=== PATIENT | female | born 1975 | race Two or more races ===

== ENCOUNTER 2020-07-04 08:57 | Outpatient (REF) | payer OTHER, SELFPAY ==
[2020-07-04 14:12] LABS: CT PCR NOT DETECTED (Not Detect.); NG PCR NOT DETECTED (Not Detect.)
[2020-07-05 09:33] LABS: BV Int Neg Control Negative (Negative); BV Int Pos Control Positive (Positive)
[2020-07-09 20:11] LABS: HPV mRNA E6/E7 Detected (Not Detected)
[2020-07-16 12:37] LABS: HPV 16 RNA NOT DETECTED
== END 2020-07-04 08:58 | disposition home or self-care (01) ==
LOC: HO.LAB 08:57
PROVIDERS: PCP Nurse Practitioner Family; Visit Provider Advanced Practice Midwife
DX: Z12.4 Encounter for screening for malignant neoplasm of cervix (principal); Z11.51 Encounter for screening for human papillomavirus (HPV); Z11.3 Encounter for screening for infections with a predominantly sexual mode of transmission; N93.9 Abnormal uterine and vaginal bleeding, unspecified; Z20.2 Contact with and (suspected) exposure to infections with a predominantly sexual mode of transmission; L68.0 Hirsutism; R23.2 Flushing
CPT/HCPCS: 87480; 87491; 87510; 87591; 87624; 87625; 87660; 88141; 88142; 88305

== ENCOUNTER 2020-07-18 12:50 | Outpatient (REF) | payer OTHER, SELFPAY ==
--- NOTE | 2020-07-18 12:54 | US_ITS ---
EXAMINATION: ULTRASOUND PELVIS COMPLETE CLINICAL INFORMATION: Abnormal uterine and vaginal bleeding. COMPARISON: 10/13/[address] abdomen and pelvis 01/07/2017. TECHNIQUE: Transabdominal and transvaginal imaging of pelvis is performed. FINDINGS: The uterus is anteverted, anteflexed and measures 14.2 cm in length, 6.0 cm in AP and 7.3 cm in transverse dimension. There are 3 hypoechoic lesions. 1. A right fundal lesion measures 2.3 x 1.9 x 2.2 cm. 2. A left upper body lesion measures 2.0 x 1.3 x 2.0 cm. Previously it measured 1.1 x 0.5 x 0.7 cm. 3. Left fundal lesion measures 1.8 x 1.6 x 1.7 cm. The endometrial thickness is 1.4 cm. There is a small hyperechoic lesion in the endometrial canal measuring 1.5 x 1.8 x 1.6 cm, suspicious of polyp or mass. There is a likely small vascular feeder visualized. Several nabothian cysts seen in the cervix. The right ovary measures 2.5 x 3.6 x 2.3 cm and volume 10.8 mL. Previously it measured 3.5 x 2.0 x 2.5 cm and volume 8.5 mL. It appears unremarkable. Left ovary seen transabdominally and measures 2.6 x 2.1 x 2.4 cm and volume 6.9 mL. There is a small amount of free fluid in the cul-de-sac. US/US pelvic complete IMPRESSION: At least 3 uterine fibroids, two of the fibroids appear new compared to previous ultrasound exam 10/13/2013. Endometrial polyp or mass with a possible vascular feeder. Recommend endoscopy. Nabothian cysts in the cervix. There is a small amount of free fluid in the cul-de-sac.
[2020-07-18 15:00] LABS: Hematocrit 35.4 % (37-47); Hemoglobin 11.1 g/dl (12.0-16.0); Mean Corpuscular HGB Conc 31.4 g/dl (31.0-35.0); Mean Corpuscular Hemoglobin 24.8 pg (27.0-33.0); Mean Platelet Volume 9.9 fL (9.4-12.3); Platelet Count 352 X10*3/uL (160-400); Red Blood Count 4.48 X10*6/uL (4.20-5.50); Red Cell Distribution Width 16.1 % (11.0-16.0); White Blood Count 4.7 X10*3/uL (4.8-10.8)
[2020-07-19 22:27] LABS: DHEA Sulfate 66 mcg/dL (19-231)
[2020-07-20 08:06] LABS: Follicle Stimulating Hormone 5.6 mIU/mL; Prolactin 10.7 ng/mL
[2020-07-25 14:21] LABS: Testosterone, Free 1.6 pg/mL (0.1-6.4); Testosterone, Total 11 ng/dL (2-45)
== END 2020-07-18 12:51 | disposition home or self-care (01) ==
LOC: HO.US 12:50
PROVIDERS: PCP Nurse Practitioner Family; Visit Provider Advanced Practice Midwife
DX: N93.9 Abnormal uterine and vaginal bleeding, unspecified (principal); Z20.2 Contact with and (suspected) exposure to infections with a predominantly sexual mode of transmission
CPT/HCPCS: 36415; 76830; 76856; 82627; 83001; 83498; 84146; 84402; 84403; 84443; 85027

== ENCOUNTER 2020-08-19 06:51 | Outpatient (REF) | payer OTHER, SELFPAY | END 2020-08-19 06:52 | disposition home or self-care (01) | LOC: HO.LAB 06:51 | PROVIDERS: Visit Provider Internal Medicine | DX: Z20.828 Contact with and (suspected) exposure to other viral communicable diseases (principal) | CPT/HCPCS: C9803; U0003 ==

== ENCOUNTER 2021-07-14 15:22 | Outpatient (REF) | payer OTHER, SELFPAY ==
--- NOTE | ~2021-07-14 | MM_ITS ---
EXAMINATION: MM SCREENING DIGITAL BREAST TOMOSYNTHESIS, BILATERAL CLINICAL INFORMATION: Screening. Asymptomatic. Age 46. No prior breast imaging. No known family history breast cancer. The lifetime risk of breast cancer based on the Tyrer-Cuzick Model is 6%. COMPARISON: None (current study represents initial baseline exam). TECHNIQUE: Digital breast tomosynthesis is performed in both the craniocaudal and mediolateral oblique views along with computer-aided detection (CAD). Synthesized 2D images are generated from the tomosynthesis. FINDINGS: There are scattered areas of fibroglandular density (ACR BI-RADS breast composition Category b). There are no significant masses, abnormal calcifications, or other abnormalities. The axilla and skin contours are unremarkable. MM/MM tomosynthesis screening BI IMPRESSION: No mammographic evidence of malignancy. ASSESSMENT: BI-RADS 1: Negative RECOMMENDATION: Routine annual mammography screening. This patient's information was entered into a reminder system with a target due date for their next mammogram.
== END 2021-07-14 15:23 | disposition home or self-care (01) ==
LOC: HO.MAMMO 15:22
PROVIDERS: Visit Provider Obstetrics & Gynecology
DX: Z12.31 Encounter for screening mammogram for malignant neoplasm of breast (principal)
CPT/HCPCS: 77063; 77067

== ENCOUNTER 2021-08-05 13:47 | Outpatient (REF) | payer OTHER, SELFPAY ==
[2021-08-06 09:41] LABS: CT PCR NOT DETECTED (Not Detect.); NG PCR NOT DETECTED (Not Detect.)
[2021-08-08 02:36] LABS: HPV mRNA E6/E7 rflx Not Detected (Not Detected)
== END 2021-08-05 13:48 | disposition home or self-care (01) ==
LOC: HO.LAB 13:47
PROVIDERS: PCP Internal Medicine; Visit Provider Obstetrics & Gynecology
DX: Z01.411 Encounter for gynecological examination (general) (routine) with abnormal findings (principal); Z11.51 Encounter for screening for human papillomavirus (HPV); Z11.3 Encounter for screening for infections with a predominantly sexual mode of transmission; N93.9 Abnormal uterine and vaginal bleeding, unspecified; N84.0 Polyp of corpus uteri
CPT/HCPCS: 87491; 87591; 87624; 88142; 99212

== ENCOUNTER 2021-08-06 09:02 | Outpatient (REF) | payer OTHER, SELFPAY ==
[2021-08-06 09:46] LABS: Hematocrit 34.4 % (37.0-47.0); Hemoglobin 10.5 g/dl (12.0-16.0); Mean Corpuscular HGB Conc 30.5 g/dl (31.0-35.0); Mean Corpuscular Hemoglobin 22.9 pg (27.0-33.0); Mean Corpuscular Volume 74.9 fL (80.0-98.0); Mean Platelet Volume 9.8 fL (9.4-12.3); Platelet Count 344 X10*3/uL (160-400); Red Blood Count 4.59 X10*6/uL (4.20-5.50); Red Cell Distribution Width 16.8 % (11.0-16.0)
[2021-08-06 10:39] LABS: HCG Quantitative < 2 mIU/mL; TSH reflex Free T4 1.43 uIU/mL (0.32-4.0)
== END 2021-08-06 09:03 | disposition home or self-care (01) ==
LOC: HO.LAB 09:02
PROVIDERS: Visit Provider Obstetrics & Gynecology
DX: N93.9 Abnormal uterine and vaginal bleeding, unspecified (principal)
CPT/HCPCS: 36415; 84443; 84702; 85027

== ENCOUNTER 2021-08-07 12:54 | Outpatient (REF) | payer OTHER, SELFPAY ==
--- NOTE | ~2021-08-07 | US_ITS ---
EXAMINATION: US PELVIS CLINICAL INFORMATION: Abnormal uterine and vaginal bleeding COMPARISON: Previous pelvic ultrasound June 2020 TECHNIQUE: Ultrasound of the pelvis is performed using both transabdominal and transvaginal transducers along with Doppler. Transvaginal imaging is performed due to inadequate visualization transabdominally. FINDINGS: The uterus is anteverted and measures 13 x 5.3 x 7 cm in dimension. There are 4 focal uterine lesions seen probably representing fibroids. These measure 3.3 x 2 x 2.2 cm in posterior uterine body, 2.5 x 1.6 x 1.9 cm the left uterine body, 1.8 x 1.2 x 1.7 cm in the posterior uterine body and 2.5 x 1.6 x 1.9 cm in the fundus. Endometrial thickness is upper normal measuring 1.8 cm. There are nabothian cysts in the cervix. The ovaries are normal-appearing. The right ovary measures 3.3 x 2.7 x 3 cm and the left ovary measures 2.5 x 2.1 x 1.8 cm. There is no fluid in the pelvis. US/US pelvic and transvaginal IMPRESSION: Enlarged fibroid uterus. Upper normal thickness endometrium. Normal-appearing ovaries.
== END 2021-08-07 12:55 | disposition home or self-care (01) ==
LOC: HO.US 12:54
PROVIDERS: Visit Provider Obstetrics & Gynecology
DX: N93.9 Abnormal uterine and vaginal bleeding, unspecified (principal)
CPT/HCPCS: 76830; 76856

== ENCOUNTER 2021-09-02 12:15 | Outpatient (REF) | payer OTHER, SELFPAY | END 2021-09-02 12:16 | disposition home or self-care (01) | LOC: HO.LAB 12:15 | PROVIDERS: PCP Internal Medicine; Visit Provider Obstetrics & Gynecology | DX: N93.9 Abnormal uterine and vaginal bleeding, unspecified (principal); N92.6 Irregular menstruation, unspecified | CPT/HCPCS: 58100; 88305 ==

== ENCOUNTER → 2021-09-23 13:09 | Outpatient (BNVA) | payer OTHER, SELFPAY | PROVIDERS: PCP Internal Medicine; Visit Provider Obstetrics & Gynecology | DX: N93.9 Abnormal uterine and vaginal bleeding, unspecified (principal) | CPT/HCPCS: 99212 ==

== ENCOUNTER → 2021-10-27 09:41 | Outpatient (BNVA) | payer OTHER, SELFPAY | PROVIDERS: PCP Internal Medicine; Visit Provider Obstetrics & Gynecology | DX: Z30.430 Encounter for insertion of intrauterine contraceptive device (principal) | CPT/HCPCS: 58300 ==

== ENCOUNTER 2021-11-04 08:51 | Outpatient (REF) | payer OTHER, SELFPAY ==
[2021-11-04 11:21] LABS: Alanine Aminotransferase 23 U/L (0-31); Alkaline Phosphatase 80 U/L (39-117); Anion Gap 9 (12-20); Aspartate Amino Transferase 19 U/L (5-31); Bilirubin Total 0.3 mg/dL (0.0-1.0); Blood Urea Nitrogen 7 mg/dL (9-16); Calcium 9.5 mg/dL (8.4-10.2); Carbon Dioxide 27 mmol/L (22-29); Chloride 105 mmol/L (96-108); Estimated Glomerular Filt Rate > 60; Glucose Random 87 mg/dL (60-115); Potassium 4.3 mmol/L (3.3-5.1); Sodium 137 mmol/L (135-145); Total Protein 6.8 g/dL (6.5-8.0)
== END 2021-11-04 08:52 | disposition home or self-care (01) ==
LOC: HO.LAB 08:51
PROVIDERS: PCP Internal Medicine; Referring Provider Obstetrics & Gynecology; Visit Provider Nurse Practitioner
DX: K63.89 Other specified diseases of intestine (principal); Z12.11 Encounter for screening for malignant neoplasm of colon
CPT/HCPCS: 36415; 80053; 99202

== ENCOUNTER 2021-11-24 09:50 | Outpatient (REF) | payer OTHER, SELFPAY | END 2021-11-24 09:51 | disposition home or self-care (01) | LOC: HO.LAB 09:50 | PROVIDERS: Visit Provider Obstetrics & Gynecology | DX: L91.8 Other hypertrophic disorders of the skin (principal); Z30.431 Encounter for routine checking of intrauterine contraceptive device | CPT/HCPCS: 11200; 11400; 88304; 88305 ==

== ENCOUNTER → 2021-12-08 12:03 | Outpatient (BNVA) | payer OTHER, SELFPAY | PROVIDERS: Visit Provider Obstetrics & Gynecology | DX: Z48.817 Encounter for surgical aftercare following surgery on the skin and subcutaneous tissue (principal); Z87.2 Personal history of diseases of the skin and subcutaneous tissue | CPT/HCPCS: Q3014 ==

== ENCOUNTER → 2021-12-29 15:41 | Outpatient (BNVA) | payer OTHER, SELFPAY | PROVIDERS: Referring Provider Internal Medicine; Visit Provider Nurse Practitioner | DX: K63.89 Other specified diseases of intestine (principal) | CPT/HCPCS: 99202 ==

== ENCOUNTER 2022-02-03 10:01 | Day surgery (SDC) | payer OTHER, SELFPAY ==
[2022-01-28 15:31] VITALS: BMI 36.7
--- NOTE | 2022-02-02 10:25 | HO.ANESPROP2 ---
Documented by User: Jeri Henley NP 02/02/22 10:26 HPI - Anesthesia Eval Consult details Narrative: 46yo F for Colonoscopy PMFSH Active Problems Active Problems: All Active Problems (Updated 01/28/22 @ 15:27 by Montse Tee, RUDY) Irregular bleeding (Acute) Abnormal uterine bleeding (AUB) (Acute) Potential exposure to STD (Acute) Hirsutism (Acute) Hot flashes (Acute) Myoma (Acute) Polyp of corpus uteri (Acute) HPV test positive (Acute) Screening mammogram, encounter for (Acute) Well woman exam (Acute) Encounter for IUD insertion (Acute) Asthma (Acute) Anxiety (Acute) Allergic rhinitis (Acute) Small intestinal bacterial overgrowth (Acute) Colon cancer screening (Acute) IUD check up (Acute) Skin lesions (Acute) Colon cancer screening (Acute) Past Medical History Medical History (Updated 01/28/22 @ 15:27 by Montse Tee RN) Allergic rhinitis Anxiety Asthma COVID-19 Hx of endometriosis Hx of seasonal allergies Surgical History Surgical History (Updated 01/28/22 @ 15:24 by Montse Tee RN) Hx of cholecystectomy Hx of tubal ligation Social History Social History Alcohol intake: never Patient Tobacco Use Status: Never used Tobacco Use of substances other than those prescribed or required for medical reasons: No Are you DNR?: No Advance Directives: No Advance Directives Information Provided: Yes Gender identity: Female Meds Allergies Allergy/AdvReac Type Severity Reaction Status Date / Time No Known Allergies Allergy Mild NOT Verified 01/28/22 15:24 APPLICABLE Home Medications Medication Instructions Recorded Confirmed Last Taken Type albuterol sulfate mg INHALATION Q4H PRN 07/04/20 08/01/20 Unknown History albuterol sulfate 90 mcg/actuation 2 puff PO Q4H PRN 07/04/20 01/28/22 Unknown History aerosol inhaler fluticasone propionate 50 INTRANASAL 07/04/20 08/01/20 Unknown History mcg/actuation nasal spray,suspension montelukast 10 mg tablet 10 mg PO DAILY 07/04/20 01/28/22 Unknown History Exam Exam Date and Time: February 02, 2022 1025 Height,Weight and Vital Signs: Height 5 ft 2 in Weight 91.172 kg Pertinent Lab Results Pertinent Lab Results: Laboratory Tests 08/06/21 11/04/21 09:25 10:05 WBC 5.0 Hgb 10.5 L Hct 34.4 L Plt Count 344 Sodium 137 Potassium 4.3 Chloride 105 Carbon Dioxide 27 BUN 7 L Creatinine 0.90 Assessment and Plan Assessment Anesthesia Assessment: Chart Reviewed Documented by User: Irvin Chapa MD 02/03/22 12:11 PMFSH Past Medical History Medical History (Updated 01/28/22 @ 15:27 by Montse Tee RN) Allergic rhinitis Anxiety Asthma COVID-19 Hx of endometriosis Hx of seasonal allergies Family History Family history of problems with anesthesia: No Surgical History Surgical History (Updated 01/28/22 @ 15:24 by Montse Tee RN) Hx of cholecystectomy Hx of tubal ligation History of Problems with Anesthesia: No Social History Social History Alcohol intake: never Patient Tobacco Use Status: Never used Tobacco Use of substances other than those prescribed or required for medical reasons: No Are you DNR?: No Advance Directives: No Advance Directives Information Provided: Yes Gender identity: Female Meds Allergies Allergy/AdvReac Type Severity Reaction Status Date / Time No Known Allergies Allergy Mild NOT Verified 01/28/22 15:24 APPLICABLE Home Medications Medication Instructions Recorded Confirmed Last Taken Type albuterol sulfate mg INHALATION Q4H PRN 07/04/20 08/01/20 Unknown History albuterol sulfate 90 mcg/actuation 2 puff PO Q4H PRN 07/04/20 01/28/22 Unknown History aerosol inhaler fluticasone propionate 50 INTRANASAL 07/04/20 08/01/20 Unknown History mcg/actuation nasal spray,suspension montelukast 10 mg tablet 10 mg PO DAILY 07/04/20 01/28/22 Unknown History Exam Airway Mallampati Class: II TM Dist: >3cm Neck ROM: Full Assessment and Plan Final Anesthetic Review Family History of Problems with Anesthesia: No History of Problems with Anesthesia: No NPO: Yes ASA Class: III Final Preanesthetic Review: No Changes in Pt Med Stat, Meds/Allgs Chart Reviewed, Consent Obtained/Reviewed and Anes Risks/Benef Reviewed Patient Risk: Intermediate Procedure Risk: Low Anesthetic Plan Anesthetic Plan: MAC: Disposition: Standard PACU
[2022-02-03 10:22] VITALS: BP 160/80; PULSE 98; RESP 16; TEMP 36.4; O2SAT 99
[2022-02-03] MEDS: Lactated Ringers 1,000 ML 100 ML IVCONT (10:39)
[2022-02-03] MEDS: Albuterol Sulfate (0.083%) 2.5 MG/3 ML VIAL.NEB INHALE (10:49)
[2022-02-03 10:51] VITALS: PULSE 93; RESP 18; O2SAT 98
--- NOTE | 2022-02-03 11:18 | MHC.SHP ---
Pre-Procedural Eval Section A Date of Service: 02/03/22 Section B Chief Complaint: screening Relevant Family History (Specify if Yes): No Relevant Social History: None Present Medications: see Short Stay Collaborative assessment Medical History: Significant History (Allergic rhinitis Anxiety Asthma COVID-19 Hx of endometriosis Hx of seasonal allergies) History of Previous Operations: Relevant previous surgery/procedure and date(s) (Hx of cholecystectomy Hx of tubal ligation) Allergies: Allergies Allergy/AdvReac Type Severity Reaction Status Date / Time No Known Allergies Allergy Mild NOT Verified 01/28/22 15:24 APPLICABLE Review of Systems Sugical H&P ROS: Negative: Constitution, Cardiovascular, Respiratory, Neurological, Psychiatric, Hem-Onc, Allergic/Immunologic, Gastrointestinal, Genitourinary, Musculoskeletal, Integumentary, Endocrine and Eyes/Ears/Nose/Throat Exam Surgical H&P Exam: Normal: HEENT, Normal: Heart, Normal: Lungs, Normal: Extremities, Normal: Abdomen, Normal: Skin and Normal: Neurological Plan Diagnosis/Plan: Unchanged I have reviewed the history and physical and performed a pertinent physical examination on my patient. No changes have occurred unless specified.
--- NOTE | 2022-02-03 11:19 | PM.OP ---
Brief Operative Note Date of Service: 02/03/22 Pre-op diagnosis: colon screening Post-op diagnosis: same Procedure: see op note Surgeon: Manoj Boyd MD Anesthesia: MAC Was an Lawn Sprinkler Installer used for this Procedure?: No Estimated blood loss (mL): 0 Condition: stable Disposition: PACU
--- NOTE | 2022-02-03 11:20 | P.OP_ITS ---
Operative Note Operative Note Date of Service: 02/03/22 Narrative: Operative Information Procedure Description: Colonoscopy Indication: colon screening Anesthesia: MAC COLONOSCOPY Instrument: Olympus variable stiffness adult scope 190L Colonoscopy Monitoring: Vital signs and clinical assessment, continuous EKG monitoring, Pulse oximetry, Carbon Dioxide monitoring and blood pressure monitoring were done throughout the procedure. Colon withdrawal time was 6 minutes. Procedure: The patient was placed in the left lateral decubitis position and pre-procedure medications were administered. After a digital rectal examination of the ano-rectum, the video colonoscope was inserted into the rectum and advanced through the colon to the cecum/TI. The colonoscope was slowly withdrawn in a retrograde panoramic fashion and the colon mucosa was carefully examined including a retroflexed view of the rectum. Findings and interventions are described below. Procedure Difficulty: easy Findings: Terminal Ileum-normal Cecum:normal Ascending Colon: normal Transverse Colon -normal Descending Colon:normal Sigmoid Colon: normal Rectum: Retroflexion with small internal hemorrhoids, grade I Anorectum - normal Colon preparation: [place] Bowel Preparation Scale Right colon; 1 Transverse colon: 2 Left colon; 1 (0 = Unprepared colon segment with mucosa not seen due to solid stool that cannot be cleared. 1 = Portion of mucosa of the colon segment seen, but other areas of the colon segment not well seen due to staining, residual stool and/or opaque liquid. 2 = Minor amount of residual staining, small fragments of stool and/or opaque liquid, but mucosa of colon segment seen well. 3 = Entire mucosa of colon segment seen well with no residual staining, small fragments of stool or opaque liquid) Impression and Post Procedure Diagnosis: poor prep internal hemorrhoids Plan: High fiber diet leaflet Avoid straining at stool, epsom salts and sitz bath, anusol supps or cream Repeat Colonoscopy in 1 year due to poor prep or earlier if clinically indicated-next time follow instructions for diet Above findings were reviewed with the patient and relevant handouts were provided if indicated.
[2022-02-03 11:46] VITALS: BP 132/63; PULSE 99; RESP 16; TEMP 37.2; O2SAT 100
[2022-02-03 12:01] VITALS: BP 137/84; PULSE 93; RESP 18; TEMP 36.8; O2SAT 96
== END 2022-02-03 12:50 | disposition home or self-care (01) ==
PROVIDERS: Visit Provider Internal Medicine Gastroenterology
PROC: 0DJD8ZZ Inspection of Lower Intestinal Tract, Via Natural or Artificial Opening Endoscopic (ICD-10-PCS; CPT 45378; principal; 2022-02-03 11:10)
DX: Z12.11 Encounter for screening for malignant neoplasm of colon (principal); K64.0 First degree hemorrhoids; K63.89 Other specified diseases of intestine; J45.909 Unspecified asthma, uncomplicated; Z90.49 Acquired absence of other specified parts of digestive tract; Z86.16 Personal history of COVID-19
CPT/HCPCS: 45378; 94640

== ENCOUNTER 2022-02-23 15:24 | Outpatient (REF) | payer OTHER, SELFPAY ==
[2022-02-24 06:29] LABS: CT PCR NOT DETECTED (Not Detect.); NG PCR NOT DETECTED (Not Detect.)
== END 2022-02-23 15:25 | disposition home or self-care (01) ==
LOC: HO.LAB 15:24
PROVIDERS: PCP Nurse Practitioner Primary Care; Visit Provider Obstetrics & Gynecology
DX: Z11.3 Encounter for screening for infections with a predominantly sexual mode of transmission (principal); N93.9 Abnormal uterine and vaginal bleeding, unspecified
CPT/HCPCS: 81025; 87491; 87591; 99212

== ENCOUNTER 2022-02-24 09:00 | Outpatient (REF) | payer OTHER, SELFPAY ==
[2022-02-24 09:56] LABS: Hematocrit 37.3 % (37.0-47.0); Hemoglobin 11.6 g/dl (12.0-16.0); Mean Corpuscular HGB Conc 31.1 g/dl (31.0-35.0); Mean Corpuscular Hemoglobin 23.9 pg (27.0-33.0); Mean Corpuscular Volume 76.9 fL (80.0-98.0); Mean Platelet Volume 9.9 fL (9.4-12.3); Platelet Count 345 X10*3/uL (160-400); Red Blood Count 4.85 X10*6/uL (4.20-5.50); Red Cell Distribution Width 19.2 % (11.0-16.0); White Blood Count 8.3 X10*3/uL (4.8-10.8)
== END 2022-02-24 09:01 | disposition home or self-care (01) ==
LOC: HO.LAB 09:00
PROVIDERS: Visit Provider Obstetrics & Gynecology
DX: N93.9 Abnormal uterine and vaginal bleeding, unspecified (principal)
CPT/HCPCS: 36415; 85027

== ENCOUNTER 2022-04-01 11:19 | Outpatient (REF) | payer OTHER, SELFPAY ==
--- NOTE | ~2022-04-01 | US_ITS ---
EXAMINATION: US PELVIS CLINICAL INFORMATION: Abnormal uterine and vaginal bleeding COMPARISON: Previous pelvic ultrasound July 2021 TECHNIQUE: Ultrasound of the pelvis is performed using both transabdominal and transvaginal transducers along with Doppler. Transvaginal imaging is performed due to inadequate visualization transabdominally. FINDINGS: The uterus is anteverted and measures 9.8 x 6.6 x 6.2 cm in dimension. There are 4 focal uterine lesions in the posterior uterine body and fundus suggestive of fibroids. These do not appear appreciably changed from previous exam. These measure 2.6 x 2.2 x 3 cm, 2 cm, 1.7 x 1.3 x 2.3 cm and 2.4 x 1.8 cm. There is an IUD in the uterus. The endometrium is not well visualized. The right ovary measures 4 x 3 x 3.2 cm. There is a 3.3 x 2.4 x 2.9 cm simple right ovarian cyst. The left ovary measures 4 x 3 x 3.9 cm. There is a 2.7 x 2.1 x 2.4 cm left ovarian cyst. Based on patient age and size of cyst, ultrasound follow-up is not recommended. There is no fluid in the pelvis. US/US pelvic and transvaginal IMPRESSION: IUD in the uterus in satisfactory position. The endometrium is not well visualized. Multiple uterine fibroids similar to previous exam. Bilateral simple ovarian cysts, largest measuring 3 cm in the right ovary.
== END 2022-04-01 11:20 | disposition home or self-care (01) ==
LOC: HO.US 11:19
PROVIDERS: Visit Provider Obstetrics & Gynecology
DX: N93.9 Abnormal uterine and vaginal bleeding, unspecified (principal)
CPT/HCPCS: 76830; 76856

== ENCOUNTER 2022-04-15 10:26 | Outpatient (REF) | payer OTHER, SELFPAY | END 2022-04-15 10:27 | disposition home or self-care (01) | LOC: HO.LAB 10:26 | PROVIDERS: PCP Nurse Practitioner Primary Care; Visit Provider Obstetrics & Gynecology | DX: Z30.432 Encounter for removal of intrauterine contraceptive device (principal); Z32.02 Encounter for pregnancy test, result negative; N93.9 Abnormal uterine and vaginal bleeding, unspecified | CPT/HCPCS: 58100; 58301; 81025; 88305; 99212 ==

== ENCOUNTER → 2022-04-21 09:54 | Outpatient (BNVA) | payer OTHER, SELFPAY | PROVIDERS: PCP Nurse Practitioner Primary Care; Visit Provider Obstetrics & Gynecology | DX: N93.9 Abnormal uterine and vaginal bleeding, unspecified (principal) | CPT/HCPCS: 99212 ==

== ENCOUNTER 2022-05-08 07:22 | Day surgery (SDC) | payer OTHER, SELFPAY ==
[2022-05-04 10:46] VITALS: BMI 35.4
--- NOTE | 2022-05-07 08:27 | P.CONAN_ITS ---
Documented by User: Jeri Henley NP 05/07/22 08:27 HPI - Anesthesia Eval Consult details Narrative: 47yo F for Endometrial Ablation s/p colo 01/2022 with TIVA PMFSH Active Problems Active Problems: All Active Problems (Updated 04/21/22 @ 10:15 by Huan Pfeiffer MD) Irregular bleeding (Acute) Abnormal uterine bleeding (AUB) (Acute) Potential exposure to STD (Acute) Hirsutism (Acute) Hot flashes (Acute) Myoma (Acute) Polyp of corpus uteri (Acute) HPV test positive (Acute) Screening mammogram, encounter for (Acute) Well woman exam (Acute) Encounter for IUD insertion (Acute) Asthma (Acute) Anxiety (Acute) Allergic rhinitis (Acute) Small intestinal bacterial overgrowth (Acute) Colon cancer screening (Acute) IUD check up (Acute) Skin lesions (Acute) Colon cancer screening (Acute) Encounter for IUD removal (Acute) Past Medical History Medical History Allergic rhinitis Anxiety Asthma COVID-19 Hx of endometriosis Hx of seasonal allergies Family History Family history of problems with anesthesia: No Surgical History Surgical History Hx of cholecystectomy Hx of colonoscopy Hx of tubal ligation History of Problems with Anesthesia: No Social History Social History Alcohol intake: never Patient Tobacco Use Status: Never used Tobacco Use of substances other than those prescribed or required for medical reasons: No Are you DNR?: No Advance Directives: No Advance Directives Information Provided: Yes Recently lost weight without trying: No Nutrition Risks: No Nutritional Risk Current occupational status: employed Gender identity: Female Meds Allergies Allergy/AdvReac Type Severity Reaction Status Date / Time No Known Allergies Allergy Mild NOT Verified 05/04/22 10:37 APPLICABLE Home Medications Medication Instructions Recorded Confirmed Last Taken Type albuterol sulfate 2.5 mg/3 mL mg inhalation Q4H PRN Wheezing 07/04/20 08/01/20 Unknown History (0.083 %) solution for nebulization albuterol sulfate 90 mcg/actuation 2 puff PO Q4H PRN Wheezing 07/04/20 05/04/22 05/08/22 06:00 History aerosol inhaler fluticasone propionate 50 intranasal 07/04/20 08/01/20 Unknown History mcg/actuation nasal spray,suspension montelukast 10 mg tablet 10 mg PO DAILY 07/04/20 05/04/22 Unknown History levonorgestrel 20 mcg/24 hours (7 intrauterine 02/23/22 Unknown History yrs) 52 mg intrauterine device (Mirena) Exam Exam Date and Time: May 07, [id number] Height,Weight and Vital Signs: Height 5 ft 3 in Weight 90.718 kg Assessment and Plan Assessment Anesthesia Assessment: Chart Reviewed Final Anesthetic Review Family History of Problems with Anesthesia: No History of Problems with Anesthesia: No Documented by User: Alec Saucedo MD 05/08/22 08:25 PMFSH Past Medical History Medical History Allergic rhinitis Anxiety Asthma COVID-19 Hx of endometriosis Hx of seasonal allergies Surgical History Surgical History Hx of cholecystectomy Hx of colonoscopy Hx of tubal ligation Social History Social History Alcohol intake: never Patient Tobacco Use Status: Never used Tobacco Use of substances other than those prescribed or required for medical reasons: No Are you DNR?: No Advance Directives: No Advance Directives Information Provided: Yes Recently lost weight without trying: No Nutrition Risks: No Nutritional Risk Current occupational status: employed Gender identity: Female Meds Allergies Allergy/AdvReac Type Severity Reaction Status Date / Time No Known Allergies Allergy Mild NOT Verified 05/04/22 10:37 APPLICABLE Home Medications Medication Instructions Recorded Confirmed Last Taken Type albuterol sulfate 2.5 mg/3 mL mg inhalation Q4H PRN Wheezing 07/04/20 08/01/20 Unknown History (0.083 %) solution for nebulization albuterol sulfate 90 mcg/actuation 2 puff PO Q4H PRN Wheezing 07/04/20 05/04/22 05/08/22 06:00 History aerosol inhaler fluticasone propionate 50 intranasal 07/04/20 08/01/20 Unknown History mcg/actuation nasal spray,suspension montelukast 10 mg tablet 10 mg PO DAILY 07/04/20 05/04/22 Unknown History levonorgestrel 20 mcg/24 hours (7 intrauterine 02/23/22 Unknown History yrs) 52 mg intrauterine device (Mirena) Exam Airway Mallampati Class: III TM Dist: >3cm Neck ROM: Full Loose/Missing/Broken Teeth: No Heart: rrr Lungs: clear Assessment and Plan Final Anesthetic Review NPO: Yes ASA Class: II Final Preanesthetic Review: No Changes in Pt Med Stat, Meds/Allgs Chart Review ed, Consent Obtained/Reviewed and Anes Risks/Benef Reviewed Patient Risk: Intermediate Procedure Risk: Low Anesthetic Plan Anesthetic Plan: GA Disposition: Standard PACU
[2022-05-08 07:31] VITALS: BMI 37.6
[2022-05-08 07:42] VITALS: BP 150/86; PULSE 87; RESP 16; TEMP 35.9; O2SAT 98
[2022-05-08 07:54] LABS: UPreg QC Valid YES; Urine Pregnancy NEGATIVE (NEGATIVE)
[2022-05-08] MEDS: Lactated Ringers 1,000 ML 100 ML IVCONT (07:56)
--- NOTE | 2022-05-08 08:59 | MHC.SHP ---
Pre-Procedural Eval Section A Date of Service: 05/08/22 The patient is an INPATIENT: No Changes since office visit: No Cold of Flu in the past 2 weeks, No New Medical Problems, No Changes in Medication and No Patient answered all questions The History & Physical has been completed within 30 days and I have reviewed it.: Yes Section B Chief Complaint: Abnormal uterine and vaginal bleeding, Allergies: Allergies Allergy/AdvReac Type Severity Reaction Status Date / Time No Known Allergies Allergy Mild NOT Verified 05/04/22 10:37 APPLICABLE Plan Diagnosis/Plan: Unchanged I have reviewed the history and physical and performed a pertinent physical examination on my patient. No changes have occurred unless specified.
--- NOTE | 2022-05-08 09:22 | P.BOP_ITS ---
Brief Operative Note Date of Service: 08/02/20 Pre-op diagnosis: Menometrorrhagia Post-op diagnosis: same Procedure: NovaSure Endometrial Ablation Surgeon: Huan Pfeiffer MD Anesthesia: MAC Was an Sanitation Worker Cleaning Machinery used for this Procedure?: No Estimated blood loss (mL): 0 Pathology: none sent Condition: stable Disposition: PACU
--- NOTE | 2022-05-08 09:22 | W.PM.OPN ---
Operative Note Operative Note Date of Service: 08/02/20 Narrative: Preop diagnosis: Menorrhagia Post Op Diagnosis: Same Op: Novasure Endometrial Ablation Anesthesia: MAC Electrical Systems Designer: None QBL: Minimal Pathology: None Complications: None Procedure: The patient was put in the dorsal lithotomy position. She was prepped and draped in the usual sterile manner. Bimanual exam prior to prepping revealed a mobile, anteverted uterus. A speculum was placed in the vagina and the anterior lip of the cervix was grasped with a single toothed tenaculum and brought forward. Taking care not to enter deep into the uterus, a sound was passed inside to measure the length of the uterus and cervix. This length was found to be 8 cm. Next, Hegar dilator was inserted into the cervical os to measure the cervical length which was 3 cm. This yielded an endometrial cavity length of 6.5 cm. A series of Hegar dilators were then inserted sequentially into the cervical os up to a size of 5 mm. The Novasure device was then opened and tested; the fan deployed easily. The instrument was set to the correct cavity length and introduced into the uterine cavity. The fan was slowly deployed with gentle movements to ensure a snug fit within the cavity. The cavity width read 4.5 cm. The measurements were imported and a cavity check was done. The trumpet was then slid down to the cervix and the device was activated. The total burn time was 79 seconds. The fan was retracted and device removed. The fan was examined and revealed charred tissue. The tenaculum was removed and the cervix examined for hemostasis which was achieved using pressure. Finally the speculum was removed. The patient tolerated the procedure well and was brought to the recovery room in a stable condition. At the end of the procedure all sponges and instruments were counted and correct. The blood loss was minimal and there were no complications.
[2022-05-08 09:31] VITALS: BP 119/79; PULSE 86; RESP 16; TEMP 36.2; O2SAT 98
[2022-05-08 09:36] VITALS: BP 116/84; PULSE 86; RESP 15; O2SAT 95
[2022-05-08 09:41] VITALS: BP 140/85; PULSE 81; RESP 15; O2SAT 96
[2022-05-08 09:46] VITALS: BP 131/87; PULSE 83; RESP 19; O2SAT 97
[2022-05-08] MEDS: oxyCODONE HCl Immed Release 5 MG TABLET PO (09:52)
[2022-05-08 10:01] VITALS: BP 125/80; PULSE 78; RESP 19; TEMP 36.2; O2SAT 97
== END 2022-05-08 11:04 | disposition home or self-care (01) ==
PROVIDERS: PCP Nurse Practitioner Primary Care; Visit Provider Obstetrics & Gynecology
PROC: (CPT 58353; principal; 2022-05-08 09:00)
DX: N93.9 Abnormal uterine and vaginal bleeding, unspecified (principal); N92.1 Excessive and frequent menstruation with irregular cycle; Z98.51 Tubal ligation status; J45.909 Unspecified asthma, uncomplicated; F41.1 Generalized anxiety disorder; Z90.49 Acquired absence of other specified parts of digestive tract; Z86.16 Personal history of COVID-19
CPT/HCPCS: 58353; 81025; J1100; J1885; J2250; J2405; J3010

== ENCOUNTER → 2022-05-21 09:12 | Outpatient (BNVA) | payer OTHER, SELFPAY | PROVIDERS: PCP Nurse Practitioner Primary Care; Visit Provider Obstetrics & Gynecology | DX: I10 Essential (primary) hypertension (principal) | CPT/HCPCS: 99212 ==

== ENCOUNTER 2022-05-21 09:53 | Emergency (ER) | payer OTHER, SELFPAY ==
[2022-05-21 09:58] VITALS: BP 192/103; PULSE 93; RESP 17; TEMP 36.1; O2SAT 99; BMI 37.5
--- NOTE | 2022-05-21 10:09 | ECG_ITS ---
Test Reason : hypertension Blood Pressure : / mmHG Vent. Rate : 080 BPM Atrial Rate : 080 BPM P-R Int : 134 ms QRS Dur : 082 ms QT Int : 386 ms P-R-T Axes : 021 016 007 degrees QTc Int : 445 ms Normal sinus rhythm Normal ECG When compared with ECG of 09-APR-2019 00:33, Heart rate has decreased Referred By: Delicia Franks Electronically Signed By:CAROLYN CONNOR
--- NOTE | 2022-05-21 10:44 | ED.GENADULT ---
HPI - General Adult General Chief complaint: General Medical Stated complaint: High blood pressure Time Seen by Provider: 05/21/22 10:07 Source: patient Mode of arrival: ambulatory History of Present Illness HPI narrative: 47-year-old female who presents with history of hypertension and states that she was referred in by her pumpman who has noticed that her blood pressure is been significantly elevated on each office visit. Patient states that this is not happen with her PCP, Dr. Joy. Patient denies any headache, dizziness, and suffers from chronic shortness of breath but otherwise denies any chest pain and does report intermittent palpitations. She otherwise denies any visual/speech/auditory deficits or symptoms and denies any numbness/tingling/weakness unilaterally. Related Data Home Medications Medication Instructions Recorded Confirmed albuterol sulfate 2.5 mg/3 mL mg inhalation Q4H PRN Wheezing 07/04/20 08/01/20 (0.083 %) solution for nebulization albuterol sulfate 90 mcg/actuation 2 puff PO Q4H PRN Wheezing 07/04/20 05/04/22 aerosol inhaler fluticasone propionate 50 intranasal 07/04/20 08/01/20 mcg/actuation nasal spray,suspension montelukast 10 mg tablet 10 mg PO DAILY 07/04/20 05/04/22 levonorgestrel 20 mcg/24 hours (7 intrauterine 02/23/22 yrs) 52 mg intrauterine device (Mirena) Previous Rx's Medication Instructions Recorded ferrous sulfate 325 mg (65 mg 325 mg PO DAILY 30 days #30 tabs 08/06/21 iron) tablet,delayed release simethicone 180 mg capsule 180 mg PO QID 30 days #120 caps 11/04/21 lipase 3,000-protease 1 cap PO QIDACHS 30 days #120 caps 12/29/21 9,500-amylase 15,000 unit capsule, delayed rel (Creon) Allergies Allergy/AdvReac Type Severity Reaction Status Date / Time No Known Allergies Allergy Mild NOT Verified 05/04/22 10:37 APPLICABLE Review of Systems Review of Systems: Pertinent positives and negatives as stated in HPI 10 point review of systems is otherwise negative PMFSH Past Medical History Source: nursing notes reviewed Medical History Allergic rhinitis Anxiety Asthma COVID-19 Hx of endometriosis Hx of seasonal allergies Surgical History Hx of cholecystectomy Hx of colonoscopy Hx of tubal ligation Social History Social History Alcohol intake: never Patient Tobacco Use Status: Never used Tobacco Advance Directives: No Advance Directives Information Provided: No Current occupational status: employed Gender identity: Female Physical Exam ED Vital Signs: Vital Signs - 24 hr 05/21/22 09:58 05/21/22 11:13 Temperature 97 F Pulse Rate 93 72 Respiratory Rate 17 Blood Pressure 192/103 H 149/87 H Pulse Oximetry 99 96 Oxygen Delivery Method Room Air Room Air BMI result Body Mass Index 37.5 VITAL SIGNS: Reviewed. GENERAL: Well developed, well nourished, in no acute distress. HEAD: Normocephalic/atraumatic EYES: PERRLA, EOMI EARS: Ext canals without abnormality, TMs non-bulging and non-erythematous NOSE: Nares patent bilateral OROPHARYNX: no oral lesions noted, posterior pharynx clear and non-erythematous without noted tonsillar enlargement/erythema/exudates NECK: Supple, no adenopathy LUNGS: Normal breath sounds. No adventitious sounds or accessory muscle use. SpO2<99> CARDIOVASCULAR: Regular rate and rhythm without noted murmurs, no JVD or lower extremity edema. ABDOMEN: Soft, non-tender, non-distended with bowel sounds. MUSCULOSKELETAL: No tenderness, deformities, or effusions noted on gross inspection. EXTREMITIES: No cyanosis, clubbing or edema. SKIN: Inspection of the skin reveals no rashes NEUROLOGIC: Alert and oriented x 4. Strength and sensation to light touch were grossly intact x 4, no facial asymmetry, no pronator drift, cranial nerves 2-12 are grossly intact. Course Course Course Narrative: 47-year-old female with history and clinical presentation consistent with hypertension that is not currently being treated with prescription medications, did discuss lifestyle changes with the patient and will evaluate her for evidence to suggest cardiac ischemia, protein in the urine. However, at this time patient is asymptomatic but will receive hydrochlorothiazide and was otherwise recommended that if her workup looks well she will need to call her primary care provider and request being started on an antihypertensive. Review of all investigations negative for acute findings to suggest cardiac ischemia, there is no presence of protein in the urine patient has no neurologic symptoms. Patient results were discussed with her at bedside and she is otherwise discharged home in stable condition with strict instructions follow-up with primary care provider. Medical Decision Making Lab Data Result diagrams: 05/21/22 10:47 05/21/22 10:47 Labs: Lab Results 05/21/22 05/21/22 05/21/22 Range/Units 10:47 10:47 10:47 WBC 4.4 L (4.8-10.8) X10*3/uL RBC 4.78 (4.20-5.50) X10*6/uL Hgb 12.7 (12.0-16.0) g/dl Hct 37.8 (37.0-47.0) % MCV 79.1 L (80.0-98.0) fL MCH 26.6 L (27.0-33.0) pg MCHC 33.6 (31.0-35.0) g/dl RDW 16.3 H (11.0-16.0) % Plt Count 296 (160-400) X10*3/uL MPV 9.6 (9.4-12.3) fL Immature Gran % (Auto) 0.5 H (0.0-0.4) % Neut % (Auto) 59.3 (45-73) % Lymph % (Auto) 26.4 (20-40) % [place] % (Auto) 7.9 (2-11) % Eos % (Auto) 5.2 H (0-4) % Baso % (Auto) 0.7 (0-2) % Lymph # (Auto) 1.2 (1.2-4.9) X10*3/uL [place] # (Auto) 0.4 (0.1-1.2) X10*3/uL Eos # (Auto) 0.2 (0.0-0.4) X10*3/uL Baso # (Auto) 0.0 (0.0-0.2) X10*3/uL Abs Immat Gran (auto) 0.02 (0.00-0.03) X10*3/uL Absolute Neuts (auto) 2.6 (2.0-8.3) x10*3/uL Absolute Nucleated RBC 0.000 (0.0-0.012) X10*3/uL Nucleated RBC % (auto) 0.0 (0.0-0.2) /100WBC Sodium 140 (135-145) mmol/L Potassium 4.0 (3.3-5.1) mmol/L Chloride 106 (96-108) mmol/L Carbon Dioxide 23 (22-29) mmol/L Anion Gap 15 (12-20) BUN 7 L (9-16) mg/dL Creatinine 0.80 (0.5-1.4) mg/dL Estim Creat Clear Calc 93.2 Estimated GFR > 60 Random Glucose 86 (60-115) mg/dL Calcium 8.8 D (8.4-10.2) mg/dL Total Bilirubin 0.4 (0.0-1.0) mg/dL AST 32 H D (5-31) U/L ALT 40 H (0-31) U/L Alkaline Phosphatase 73 (39-117) U/L Troponin I High Sens < 3.5 (<3.5-17.0) ng/L Total Protein 6.8 (6.5-8.0) g/dL Albumin 3.9 (3.5-5.0) g/dL Urine Color Urine Appearance Urine pH (5.0-9.0) Ur Specific Secretary (1.005-1.025) Urine Protein (Neg-Trace) mg/dL Urine Glucose (UA) (Negative) mg/dL Urine Ketones (Negative) mg/dL Urine Blood (Negative) Urine Nitrite (Negative) Ur Leukocyte Esterase (Negative) Urine Test (NEGATIVE) 05/21/22 05/21/22 Range/Units 12:01 12:01 WBC (4.8-10.8) X10*3/uL RBC (4.20-5.50) X10*6/uL Hgb (12.0-16.0) g/dl Hct (37.0-47.0) % MCV (80.0-98.0) fL MCH (27.0-33.0) pg MCHC (31.0-35.0) g/dl RDW (11.0-16.0) % Plt Count (160-400) X10*3/uL MPV (9.4-12.3) fL Immature Gran % (Auto) (0.0-0.4) % Neut % (Auto) (45-73) % Lymph % (Auto) (20-40) % [place] % (Auto) (2-11) % Eos % (Auto) (0-4) % Baso % (Auto) (0-2) % Lymph # (Auto) (1.2-4.9) X10*3/uL [place] # (Auto) (0.1-1.2) X10*3/uL Eos # (Auto) (0.0-0.4) X10*3/uL Baso # (Auto) (0.0-0.2) X10*3/uL Abs Immat Gran (auto) (0.00-0.03) X10*3/uL Absolute Neuts (auto) (2.0-8.3) x10*3/uL Absolute Nucleated RBC (0.0-0.012) X10*3/uL Nucleated RBC % (auto) (0.0-0.2) /100WBC Sodium (135-145) mmol/L Potassium (3.3-5.1) mmol/L Chloride (96-108) mmol/L Carbon Dioxide (22-29) mmol/L Anion Gap (12-20) BUN (9-16) mg/dL Creatinine (0.5-1.4) mg/dL Estim Creat Clear Calc Estimated GFR Random Glucose (60-115) mg/dL Calcium (8.4-10.2) mg/dL Total Bilirubin (0.0-1.0) mg/dL AST (5-31) U/L ALT (0-31) U/L Alkaline Phosphatase (39-117) U/L Troponin I High Sens (<3.5-17.0) ng/L Total Protein (6.5-8.0) g/dL Albumin (3.5-5.0) g/dL Urine Color Yellow Urine Appearance Hazy Urine pH 6.0 (5.0-9.0) Ur Specific [place] 1.015 (1.005-1.025) Urine Protein Negative (Neg-Trace) mg/dL Urine Glucose (UA) Negative (Negative) mg/dL Urine Ketones Negative (Negative) mg/dL Urine Blood Trace (Negative) Urine Nitrite Negative (Negative) Ur Leukocyte Esterase Negative (Negative) Urine Test NEGATIVE (NEGATIVE) ECG Data Attestation: I personally reviewed and interpreted this ECG as follows: Prior ECG tracings: available for review Interpretation: Normal sinus rhythm, HR-80, no STEMI, WV/QRS/QTC is within normal limits. Discharge Plan Discharge Clinical Impression: Hypertension Patient Disposition: Home, Self-Care Instructions: Hypertension (ED), DASH Eating Plan (ED) Additional Instructions: 1. Please initiate lifestyle changes such as exercise, weight reduction, sodium control but please follow-up with your primary care provider to further discuss initiation medications. Return to the ER for worsening symptoms. Prescriptions: No Action ferrous sulfate 325 mg (65 mg iron) tablet,delayed release (DR/EC) 325 mg PO DAILY 30 Days Qty: 30 5RF albuterol sulfate 2.5 mg /3 mL (0.083 %) solution for nebulization inhalation Q4H PRN (Reason: Wheezing) albuterol sulfate 90 mcg/actuation HFA aerosol inhaler 2 puff PO Q4H PRN (Reason: Wheezing) montelukast 10 mg tablet 10 mg PO DAILY fluticasone propionate 50 mcg/actuation spray,suspension intranasal simethicone 180 mg capsule 180 mg PO QID 30 Days Qty: 120 3RF Rx Instructions: after meals Creon 3,000-9,500- 15,000 unit capsule,delayed release(DR/EC) 1 cap PO QIDACHS 30 Days Qty: 120 3RF Rx Instructions: do not exceed 10,000 unit/kg lipase per 24 hrs Mirena 20 mcg/24 hours (7 yrs) 52 mg intrauterine device intrauterine Referrals: Dagmar Bruce NP [Primary Care Provider] -
[2022-05-21 10:50] LABS: MANUAL DIFF FLAG NO
[2022-05-21 10:51] LABS: Basophils Percent Auto 0.7 % (0-2); Eosinophils Absolute Auto 0.2 X10*3/uL (0.0-0.4); Eosinophils Percent Auto 5.2 % (0-4); Hematocrit 37.8 % (37.0-47.0); Hemoglobin 12.7 g/dl (12.0-16.0); Imm Gran Abs Auto 0.02 X10*3/uL (0.00-0.03); Imm Gran Pct Auto 0.5 % (0.0-0.4); Lymphocytes Absolute Auto 1.2 X10*3/uL (1.2-4.9); Lymphocytes Percent Auto 26.4 % (20-40); Mean Corpuscular HGB Conc 33.6 g/dl (31.0-35.0); Mean Corpuscular Hemoglobin 26.6 pg (27.0-33.0); Mean Corpuscular Volume 79.1 fL (80.0-98.0); Mean Platelet Volume 9.6 fL (9.4-12.3); Monocytes Absolute Auto 0.4 X10*3/uL (0.1-1.2); Monocytes Percent Auto 7.9 % (2-11); Neutrophils Absolute Auto 2.6 x10*3/uL (2.0-8.3); Neutrophils Percent Auto 59.3 % (45-73); Platelet Count 296 X10*3/uL (160-400); Red Blood Count 4.78 X10*6/uL (4.20-5.50); Red Cell Distribution Width 16.3 % (11.0-16.0); White Blood Count 4.4 X10*3/uL (4.8-10.8)
[2022-05-21 11:12] LABS: Troponin-I High Sensitivity < 3.5 ng/L (<3.5-17.0)
[2022-05-21] MEDS: hydroCHLOROthiazide 25 MG TABLET PO (11:12)
[2022-05-21 11:13] VITALS: BP 149/87; PULSE 72; O2SAT 96
[2022-05-21 11:17] LABS: Alanine Aminotransferase 40 U/L (0-31); Albumin Level 3.9 g/dL (3.5-5.0); Alkaline Phosphatase 73 U/L (39-117); Anion Gap 15 (12-20); Aspartate Amino Transferase 32 U/L (5-31); Bilirubin Total 0.4 mg/dL (0.0-1.0); Blood Urea Nitrogen 7 mg/dL (9-16); Calcium 8.8 mg/dL (8.4-10.2); Carbon Dioxide 23 mmol/L (22-29); Chloride 106 mmol/L (96-108); Creatinine Clr Calc Pharmacy 93.2; Estimated Glomerular Filt Rate > 60; Glucose Random 86 mg/dL (60-115); Sodium 140 mmol/L (135-145); Total Protein 6.8 g/dL (6.5-8.0)
[2022-05-21 12:27] LABS: Appearance Urine Hazy; Color Urine Yellow; Glucose Urine UA Negative (Negative); Leukocyte Esterase Urine Negative (Negative); Nitrite Urine Negative (Negative); Specific Gravity - Urine 1.015 (1.005-1.025); Urine Blood Trace (Negative); Urine Ketones Negative (Negative); Urine Protein Negative (Neg-Trace)
[2022-05-21 12:29] LABS: UPreg QC Valid YES; Urine Pregnancy NEGATIVE (NEGATIVE)
[2022-05-21 12:42] LABS: Bacteria Urine Trace (None Seen); RBC Urine 0-2 /HPF (0-2); WBC Urine 0-5 /HPF (0-5)
[2022-05-21 12:43] LABS: Hyaline Casts Urine 0-2 /LPF (0-2)
== END 2022-05-21 13:03 | disposition home or self-care (01) ==
PROVIDERS: Emergency Provider Student in an Organized Health Care Education/Training Program; PCP Nurse Practitioner Primary Care
DX: I10 Essential (primary) hypertension (principal)
CPT/HCPCS: 36415; 80053; 81001; 81025; 84484; 85025; 93005; 99212; 99283; 99284

== ENCOUNTER 2022-06-03 09:41 | Outpatient (REF) | payer OTHER, SELFPAY ==
[2022-06-03 10:24] LABS: MANUAL DIFF FLAG NO
[2022-06-03 11:28] LABS: Basophils Percent Auto 0.5 % (0-2); Eosinophils Absolute Auto 0.1 X10*3/uL (0.0-0.4); Hemoglobin 13.5 g/dl (12.0-16.0); Imm Gran Abs Auto 0.02 X10*3/uL (0.00-0.03); Imm Gran Pct Auto 0.3 % (0.0-0.4); Lymphocytes Absolute Auto 2.1 X10*3/uL (1.2-4.9); Lymphocytes Percent Auto 33.8 % (20-40); Mean Corpuscular HGB Conc 32.1 g/dl (31.0-35.0); Mean Corpuscular Hemoglobin 26.4 pg (27.0-33.0); Monocytes Absolute Auto 0.4 X10*3/uL (0.1-1.2); Neutrophils Absolute Auto 3.5 x10*3/uL (2.0-8.3); Neutrophils Percent Auto 56.4 % (45-73); Platelet Count 307 X10*3/uL (160-400); Red Blood Count 5.12 X10*6/uL (4.20-5.50); White Blood Count 6.1 X10*3/uL (4.8-10.8)
== END 2022-06-03 09:42 | disposition home or self-care (01) ==
LOC: HO.LAB 09:41
PROVIDERS: Visit Provider Obstetrics & Gynecology
DX: N93.9 Abnormal uterine and vaginal bleeding, unspecified (principal)
CPT/HCPCS: 36415; 85025; 99212

== ENCOUNTER → 2022-06-08 12:58 | Outpatient (REF) | payer OTHER, SELFPAY | LOC: HO.SL 12:58 | PROVIDERS: PCP Nurse Practitioner Primary Care; Visit Provider Internal Medicine | DX: R06.83 Snoring (principal); I10 Essential (primary) hypertension | CPT/HCPCS: 95806 ==

== ENCOUNTER 2022-07-10 07:47 | Outpatient (REF) | payer OTHER, SELFPAY ==
--- NOTE | 2022-07-10 | PFT_ITS ---
FLOWS: FEV1 82% of predicted at 2.17 L. FVC 80% of predicted at 2.61 L. FEV1 to FVC ratio of 0.83. No bronchodilator response except in small to medium airways. LUNG VOLUMES: Total lung capacity 82% of predicted at 3.87 L. Residual volume 71% of predicted at 1.14 L. Slow vital capacity 88% of predicted at 2.74 L. Expiratory reserve volume 13% of predicted at 0.14 L. Diffusion capacity is normal. IMPRESSION: No obstructive or restrictive ventilatory defect. No bronchodilator response except in small to medium airways. Decreased expiratory reserve volume suggests extrathoracic restriction likely secondary to abdominal obesity. Jair Catherine MD AP/MODL / [id number]
== END 2022-07-10 07:48 | disposition home or self-care (01) ==
LOC: HO.RESP 07:47
PROVIDERS: PCP Internal Medicine; Visit Provider Internal Medicine
DX: I10 Essential (primary) hypertension (principal); J45.40 Moderate persistent asthma, uncomplicated
CPT/HCPCS: 94060; 94727; 94729

== ENCOUNTER 2022-07-17 08:51 | Outpatient (REF) | payer OTHER, SELFPAY ==
--- NOTE | ~2022-07-17 | MM_ITS ---
EXAMINATION: MM SCREENING DIGITAL BREAST TOMOSYNTHESIS, BILATERAL CLINICAL INFORMATION: Screening. Asymptomatic. The lifetime risk of breast cancer based on the Tyrer-Cuzick Model is 6%. COMPARISON: Mammography: 07/14/2021 (baseline) TECHNIQUE: Digital breast tomosynthesis is performed in both the craniocaudal and mediolateral oblique views along with computer-aided detection (CAD). Synthesized 2D images are generated from the tomosynthesis. FINDINGS: There are scattered areas of fibroglandular density (ACR BI-RADS breast composition Category b). There are no significant masses, abnormal calcifications, or other abnormalities. Parenchymal pattern is similar to prior baseline exam. There is no architectural abnormality. The axilla and skin contours are unremarkable. MM/MM tomosynthesis screening BI IMPRESSION: No mammographic evidence of malignancy. ASSESSMENT: BI-RADS 1: Negative RECOMMENDATION: Routine annual mammography screening. This patient's information was entered into a reminder system with a target due date for their next mammogram.
== END 2022-07-17 08:52 | disposition home or self-care (01) ==
LOC: HO.MAMMO 08:51
PROVIDERS: PCP Nurse Practitioner Primary Care; Visit Provider Nurse Practitioner Primary Care
DX: Z12.31 Encounter for screening mammogram for malignant neoplasm of breast (principal)
CPT/HCPCS: 77063; 77067

== ENCOUNTER → 2022-08-17 13:50 | Outpatient (BNVA) | payer OTHER, SELFPAY | PROVIDERS: PCP Internal Medicine; Visit Provider Obstetrics & Gynecology | DX: Z01.419 Encounter for gynecological examination (general) (routine) without abnormal findings (principal); N93.9 Abnormal uterine and vaginal bleeding, unspecified; K42.9 Umbilical hernia without obstruction or gangrene | CPT/HCPCS: 99212 ==

== ENCOUNTER → 2022-08-21 11:24 | Outpatient (BNVA) | payer OTHER, SELFPAY | PROVIDERS: PCP Internal Medicine; Referring Provider Obstetrics & Gynecology; Visit Provider Surgery | DX: K42.9 Umbilical hernia without obstruction or gangrene (principal); I10 Essential (primary) hypertension; J45.909 Unspecified asthma, uncomplicated; F41.9 Anxiety disorder, unspecified; E66.01 Morbid (severe) obesity due to excess calories; Z68.37 Body mass index [BMI] 37.0-37.9, adult; Z90.49 Acquired absence of other specified parts of digestive tract | CPT/HCPCS: 99202 ==

== ENCOUNTER 2022-08-28 09:32 | Outpatient (REF) | payer OTHER, SELFPAY ==
--- NOTE | ~2022-08-28 | CT_ITS ---
EXAMINATION: CT ABDOMEN AND PELVIS WITHOUT CONTRAST CLINICAL INFORMATION: Umbilical hernia. COMPARISON: CT abdomen pelvis 01/02/2017. Ultrasound pelvis and transvaginal 04/01/2022 and 08/07/2021. TECHNIQUE: Multidetector volumetric imaging was performed from the superior aspect of the liver through the pubic symphysis. Sagittal and coronal reformatted images were obtained on the technologist's workstation. This CT examination was performed using dose optimization techniques as appropriate, variously including the following: *Automated exposure control *Adjustment of mA and/or kV according to patient size (this includes techniques or standardized protocols for targeted exams where dose is matched to indication/reason for exam; i.e. extremities or head) *Use of iterative reconstruction technique DLP: 598 mGy-cm. FINDINGS: LUNG BASES: The lung bases are clear. Minimal atelectatic changes are seen in right middle lobe. The heart size is normal. LIVER, GALLBLADDER, AND BILIARY TREE: The liver is normal in size, shape, and diffusely hypoattenuated. No focal hepatic lesion or biliary ductal dilatation is present. The gallbladder has been surgically removed. PANCREAS: Unremarkable. SPLEEN: Unremarkable. ADRENAL GLANDS: Unremarkable. KIDNEYS AND URETERS: The kidneys are normal in size, shape, and attenuation. No hydronephrosis, hydroureter, or calculi seen. No perinephric stranding. BLADDER: Unremarkable. GASTROINTESTINAL TRACT: There is scattered stool and gas seen throughout the colon without distention. The small bowel loops are normal caliber. Appendix is normal caliber. ABDOMINAL WALL: A small umbilical hernia containing intraperitoneal fat is noted. The neck is 2 cm wide. LYMPH NODES: Normal. VASCULAR: Unremarkable. PELVIC VISCERA: The uterus is anteverted and slightly bulky along the posterior margin. Similar findings were visualized on previous CT 01/02/2017. Both ovaries are visualized and symmetrical. No abnormal pelvic or inguinal lymph nodes seen. OSSEOUS STRUCTURES: Unremarkable. CT/CT abdomen pelvis wo IV con IMPRESSION: Slightly bulky posterior uterus. Suggestive of fibroid disease. This was noted on previous ultrasound exam 08/07/2021 and 04/01/2022. Small umbilical hernia containing fat. Fleischner guidelines were followed.
== END 2022-08-28 09:33 | disposition home or self-care (01) ==
LOC: HO.CT 09:32
PROVIDERS: PCP Nurse Practitioner Primary Care; Visit Provider Surgery
DX: K42.9 Umbilical hernia without obstruction or gangrene (principal); E66.01 Morbid (severe) obesity due to excess calories; F41.9 Anxiety disorder, unspecified; Z90.49 Acquired absence of other specified parts of digestive tract
CPT/HCPCS: 74176

== ENCOUNTER → 2022-09-04 10:54 | Outpatient (BNVA) | payer OTHER, SELFPAY | PROVIDERS: PCP Nurse Practitioner Primary Care; Visit Provider Surgery | DX: K42.9 Umbilical hernia without obstruction or gangrene (principal); E66.01 Morbid (severe) obesity due to excess calories; I10 Essential (primary) hypertension; N92.6 Irregular menstruation, unspecified; J45.909 Unspecified asthma, uncomplicated; F41.9 Anxiety disorder, unspecified; Z68.38 Body mass index [BMI] 38.0-38.9, adult; Z90.49 Acquired absence of other specified parts of digestive tract | CPT/HCPCS: 99212 ==

== ENCOUNTER 2023-01-25 13:29 | Outpatient (REF) | payer OTHER, SELFPAY | END 2023-01-25 13:30 | disposition home or self-care (01) | LOC: HO.LNP 13:29 | PROVIDERS: PCP Nurse Practitioner Primary Care; Visit Provider Obstetrics & Gynecology | DX: Z20.2 Contact with and (suspected) exposure to infections with a predominantly sexual mode of transmission (principal) | CPT/HCPCS: 99212 ==

== ENCOUNTER 2023-01-25 14:20 | Outpatient (REF) | payer OTHER, SELFPAY ==
[2023-01-25 15:57] LABS: Syphilis Screen Nonreactive (Nonreactive)
[2023-01-26 09:33] LABS: BV Int Neg Control Negative (Negative); BV Int Pos Control Positive (Positive)
[2023-01-27 04:43] LABS: HIV AB/AG Nonreactive (Nonreactive); HIV Num 1 0.06 S/CO (0.00-0.99); Hepatitis B Surface Antigen Negative (Negative); ~HepC Num1 0.49 S/CO (0.00-0.79); ~Hepatitis C Antibody Nonreactive (Nonreactive)
== END 2023-01-25 14:21 | disposition home or self-care (01) ==
LOC: HO.LAB 14:20
PROVIDERS: Visit Provider Obstetrics & Gynecology
DX: Z11.4 Encounter for screening for human immunodeficiency virus [HIV] (principal); Z20.2 Contact with and (suspected) exposure to infections with a predominantly sexual mode of transmission
CPT/HCPCS: 86780; 86803; 87340; 87389; 87480; 87510; 87660

== ENCOUNTER 2023-04-22 13:40 | Emergency (ER) | payer OTHER, SELFPAY ==
--- NOTE | ~2023-04-22 | XR_ITS ---
EXAMINATION: XR CHEST AP portable, 2:36 PM CLINICAL INFORMATION: Diffuse wheezing COMPARISON: 05/23/2019 TECHNIQUE: Frontal view of the chest was obtained. FINDINGS: No significant abnormality is noted involving the heart, lungs, mediastinum, bony thorax or soft tissues. XR/XR chest 1V IMPRESSION: Unremarkable examination.
[2023-04-22 13:53] VITALS: BP 185/95; PULSE 106; RESP 24; TEMP 36.1; O2SAT 97; BMI 36.6
--- NOTE | 2023-04-22 13:53 | ED.GENADULT ---
HPI - General Adult General Chief complaint: Upper Respiratory Symptoms Stated complaint: asthma attack Time Seen by Provider: 04/22/23 13:57 Source: patient, RN notes reviewed and old records reviewed Mode of arrival: ambulatory History of Present Illness HPI narrative: 48 year old female with past medical history of asthma presents to the emergency department c/o shortness of breath and wheezing x4 days w/dry cough which worsened today. Patient takes Albuterol PRN, last uses 30 mins [employer]ASH[employer]ER. Reports Albuterol use more than 10x today & has also been using neb machine w/o relief, denies recent steroid use. Admits this is similar to prior exacerbations in the past. Denies sick contacts, recent travel, fever, recent strenuous activity, CP, pedal edema Onset (ago): day(s) Related Data Home Medications Medication Instructions Recorded Confirmed albuterol sulfate 2.5 mg/3 mL mg inhalation Q4H PRN Wheezing 07/04/20 09/04/22 (0.083 %) solution for nebulization albuterol sulfate 90 mcg/actuation 2 puff PO Q4H PRN Wheezing 07/04/20 09/04/22 aerosol inhaler fluticasone propionate 50 intranasal 07/04/20 09/04/22 mcg/actuation nasal spray,suspension montelukast 10 mg tablet 10 mg PO DAILY 07/04/20 09/04/22 levonorgestrel 21 mcg/24 hours (8 intrauterine 02/23/22 09/04/22 yrs) 52 mg intrauterine device (Mirena) Previous Rx's Medication Instructions Recorded ferrous sulfate 325 mg (65 mg 325 mg PO DAILY 30 days #30 tabs 08/06/21 iron) tablet,delayed release simethicone 180 mg capsule 180 mg PO QID 30 days #120 caps 11/04/21 lipase 3,000-protease 1 cap PO QIDACHS 30 days #120 caps 12/29/21 9,500-amylase 15,000 unit capsule, delayed rel (Creon) albuterol sulfate 2.5 mg/0.5 mL 5 mg inhalation Q4H PRN shortness 04/22/23 solution for nebulization of breath or wheezing #30 ea albuterol sulfate 90 mcg/actuation 2 puff inhalation Q4-6H PRN 04/22/23 aerosol inhaler shortness of breath or wheezing #6.7 grams prednisone 20 mg tablet 40 mg PO DAILY 5 days #10 tabs 04/22/23 Allergies Allergy/AdvReac Type Severity Reaction Status Date / Time No Known Allergies Allergy Mild NOT Verified 01/25/23 14:04 APPLICABLE Review of Systems Review of Systems: Constitutional: No Fever, No Chills ENT/Mouth: No Ear Pain, No Nasal Congestion, No sore throat, No Rhinorrhea, No Swallowing Difficulty Cardiovascular: No Chest Pain, + SOB Respiratory: + Cough, No Sputum, + Wheezing Gastrointestinal: No Nausea, No Vomiting, No Diarrhea, No Constipation, No Abdominal pain Musculoskeletal: No joint pain, No Myalgias, No Joint Swelling Skin: No Skin Lesions, No rash Neuro: No Weakness Yes all other systems are reviewed and are negative Constitutional: Constitutional: Reports as per [facility] Past Medical History Attestation statement: The following information was validated with the patient. 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[place] Sexual orientation: Straight/Heterosexual Gender identity: Female Physical Exam ED Vital Signs: Vital Signs - 24 hr 04/22/23 13:53 04/22/23 14:11 04/22/23 15:13 Temperature 97 F Pulse Rate 106 H 101 H 96 Respiratory Rate 24 H 26 H 20 Blood Pressure 185/95 H Pulse Oximetry 97 BMI result Body Mass Index 36.6 Const General: cooperative and healthy appearing Orientation/consciousness: patient oriented x3 Limitations: no limitations HENMT Head: Yes normal to inspection and Yes atraumatic Ears: hearing grossly normal bilaterally General nose exam: Normal external nose present Face and sinus: Yes normal facial exam Eyes General: appearance normal, both eyes and all related structures EOM: EOMs intact bilaterally Neck Neck: Yes normal visual inspection and Yes no meningeal signs Resp Effort & Inspection: not able to speak in complete sentences (Talking in short sentences, mild respiratory distress), no grunting, no stridor and tachypneic Auscultation: no crackles and wheezes expiratory wheezes and throughout Cardio Rate: regular rate and tachycardic Heart sounds: S1 normal heart sound present and S2 normal heart sound present Skin Rashes: no rashes Wounds: no wounds Neuro General: patient oriented x3, tone normal and no meningeal signs Gait exam (Neuro): Normal gait present Extrem General: Yes normal to inspection, Yes no pedal edema and Yes no calf tenderness Course Course Course Narrative: This is a rapid medical exam: Additional HPI, ROS, PE not included below will be deferred to primary provider. Patient is a 48-year-old female with history of asthma, HTN presenting to the emergency department with complaint of shortness of breath and wheezing for the past several days. Has used inhalers and nebulizers at home with little relief. Reports nasal congestion and cough. Plan: Flu/RSV/Covid, cxr -1502-- on re-eval after duoneb lungs with better air movement but still diffuse wheeze >IV Mag & additional Duoneb ordered -delay in Chem 7 as labs hemolyzed, blood work otherwise reassuring -chest x-ray unremarkable -1717--on re-evaluation patient reports symptomatic improvement, no respiratory distress, talking in complete sentences, sitting comfortably, lungs with good air movement, slight residual end-expiratory wheeze appreciated. Offered patient additional DuoNeb however rather be discharged with prescription in continue treatments at home with machine/inhalers. Results discussed with patient including worrisome signs and symptoms and strict return precautions, and when to return to the emergency department. They verbalized understanding and feel safe for discharge at this time. Medications Administered Discontinued Medications Generic Name Dose Route Start Last Admin Trade Name Thaq PRN Reason Stop Dose Admin Albuterol Sulfate 5 mg 04/22/23 13:58 04/22/23 14:10 Albuterol Sulfate (0.083%) 2.5 Mg/3 Ml Vial.Neb INHALE 04/22/23 13:59 5 mg ONCE ONE Administration Albuterol Sulfate 7.5 mg/ 0 mg 04/22/23 15:03 04/22/23 15:13 Albuterol/Ipratropium 3 ml INHALE 04/22/23 15:04 2.5 each ONCE ONE Administration Magnesium Sulfate 2 gm in 50 mls @ 25 mls/hr 04/22/23 15:01 04/22/23 17:04 Magnesium Sulfate/H2o IV 04/22/23 17:00 Infused ONCE ONE Infusion Methylprednisolone Sodium Succinate 125 mg 04/22/23 14:10 04/22/23 14:40 Methylprednisolone Sod Succ 125 Mg/2 Ml Vial IVPUSH 04/22/23 14:11 125 mg ONCE ONE Administration Medical Decision Making Medical Decision Making [facility] Narrative: 48 year old female with past medical history of asthma presents to the emergency department c/o shortness of breath and wheezing x4 days w/dry cough which worsened today. On exam initially tachycardic likely from albuterol use, tachypneic, talking in short sentences in mild respiratory distress with diffuse expiratory wheeze. No appreciable pitting edema or calf tenderness. Concern for asthma exacerbation vs viral syndrome. Rule out pneumonia. Lower suspicion for ACS/PE or CHF. Unlikely severe sepsis, vital sign abnormalities likely from albuterol/chronic lung disease Plan: Viral testing, labs, CXR, EKG, DuoNebs, IV Solu-Medrol, re-evaluate Please refer to course for remaining clinical decision making, interpretation of labs/imaging results, and discussions with consultants and/or family members. Differential Diagnosis Differential Diagnoses: The differential diagnosis associated with the presentation includes As above Admission/Observation Consideration of admission/observation: Escalation of care including admission/observation considered Lab Data [facility] Lab Attestation statement: I reviewed the patient's lab results. 04/22/23 14:35 04/22/23 14:35 Labs: Lab Results 04/22/23 04/22/23 04/22/23 Range/Units 14:02 14:35 14:35 WBC 7.2 (4.8-10.8) X10*3/uL RBC 5.27 (4.20-5.50) X10*6/uL Hgb 14.6 (12.0-16.0) g/dl Hct 42.9 (37.0-47.0) % MCV 81.4 (80.0-98.0) fL MCH 27.7 (27.0-33.0) pg MCHC 34.0 (31.0-35.0) g/dl RDW 14.7 (11.0-16.0) % Plt Count 294 (160-400) X10*3/uL MPV 9.7 (9.4-12.3) fL Immature Gran % (Auto) 0.3 (0.0-0.4) % Neut % (Auto) 42.6 L (45-73) % Lymph % (Auto) 41.7 H (20-40) % Latimer % (Auto) 4.8 (2-11) % Eos % (Auto) 9.8 H (0-4) % Baso % (Auto) 0.8 (0-2) % Lymph # (Auto) 3.0 (1.2-4.9) X10*3/uL Latimer # (Auto) 0.3 (0.1-1.2) X10*3/uL Eos # (Auto) 0.7 H (0.0-0.4) X10*3/uL Baso # (Auto) 0.1 (0.0-0.2) X10*3/uL Abs Immat Gran (auto) 0.02 (0.00-0.03) X10*3/uL Absolute Neuts (auto) 3.1 (2.0-8.3) x10*3/uL Absolute Nucleated RBC 0.000 (0.0-0.012) X10*3/uL Nucleated RBC % (auto) 0.0 (0.0-0.2) /100WBC Sodium Cancelled Potassium Cancelled Chloride Cancelled Carbon Dioxide Cancelled Anion Gap Cancelled BUN Cancelled Creatinine Cancelled Estim Creat Clear Calc Cancelled Estimated GFR Cancelled Random Glucose Cancelled Calcium Cancelled Influenza Type A (PCR) NEGATIVE (Negative) Influenza Type B (PCR) NEGATIVE (Negative) RSV RNA Qual (PCR) NEGATIVE (Negative) SARS-CoV-2 RNA (RT-PCR) NEGATIVE (Negative) 04/22/23 Range/Units 16:41 WBC (4.8-10.8) X10*3/uL RBC (4.20-5.50) X10*6/uL Hgb (12.0-16.0) g/dl Hct (37.0-47.0) % MCV (80.0-98.0) fL MCH (27.0-33.0) pg MCHC (31.0-35.0) g/dl RDW (11.0-16.0) % Plt Count (160-400) X10*3/uL MPV (9.4-12.3) fL Immature Gran % (Auto) (0.0-0.4) % Neut % (Auto) (45-73) % Lymph % (Auto) (20-40) % Latimer % (Auto) (2-11) % Eos % (Auto) (0-4) % Baso % (Auto) (0-2) % Lymph # (Auto) (1.2-4.9) X10*3/uL Latimer # (Auto) (0.1-1.2) X10*3/uL Eos # (Auto) (0.0-0.4) X10*3/uL Baso # (Auto) (0.0-0.2) X10*3/uL Abs Immat Gran (auto) (0.00-0.03) X10*3/uL Absolute Neuts (auto) (2.0-8.3) x10*3/uL Absolute Nucleated RBC (0.0-0.012) X10*3/uL Nucleated RBC % (auto) (0.0-0.2) /100WBC Sodium 138 Potassium 3.3 Chloride 103 Carbon Dioxide 24 Anion Gap 14 BUN 6 L Creatinine 0.96 Estim Creat Clear Calc 75.8 Estimated GFR > 60 Random Glucose 218 H Calcium 9.3 Influenza Type A (PCR) (Negative) Influenza Type B (PCR) (Negative) RSV RNA Qual (PCR) (Negative) SARS-CoV-2 RNA (RT-PCR) (Negative) Independent Interpretation I performed an independent interpretation of an: EKG Radiology Impression Discussion of test interpretation with radiology: I have reviewed the radiologist's reading. External Record Review External record reviewed: Inpatient record, Office record, Outpatient record, Prior outpatient labs, Prior outpatient radiology, Primary care record and Outside ED record Tests considered The following testing was considered but not selected: As above Chronic Conditions Patient?s care impacted by: Other (Asthma) Critical Care Time Critical Care Time Critical Care Time: Yes Total Critical Care Time: 45 Attestation: I have personally provided critical care time exclusive of time spent on separately billable procedures. Time includes review of lab data, radiology results, discussion with consultants, and monitoring for potential decompensation. Intervention performed as documented. Discharge Plan Discharge Clinical Impression: Asthma exacerbation Patient Disposition: Home, Self-Care Instructions: Asthma (DC) Additional Instructions: Your blood work and chest x-ray were reassuring Please continue to use neb machine and inhalers at home In addition start taking prednisone as prescribed Follow-up with her doctor If symptoms persist or worsen return to the ED Prescriptions: New prednisone 20 mg tablet 40 mg PO DAILY 5 Days Qty: 10 0RF albuterol sulfate 90 mcg/actuation HFA aerosol inhaler 2 puff inhalation Q4-6H PRN (Reason: shortness of breath or wheezing) Qty: 6.7 0RF albuterol sulfate 2.5 mg/0.5 mL solution for nebulization 5 mg inhalation Q4H PRN (Reason: shortness of breath or wheezing) Qty: 30 0RF No Action ferrous sulfate 325 mg (65 mg iron) tablet,delayed release (DR/EC) 325 mg PO DAILY 30 Days Qty: 30 5RF albuterol sulfate 2.5 mg /3 mL (0.083 %) solution for nebulization inhalation Q4H PRN (Reason: Wheezing) albuterol sulfate 90 mcg/actuation HFA aerosol inhaler 2 puff PO Q4H PRN (Reason: Wheezing) montelukast 10 mg tablet 10 mg PO DAILY fluticasone propionate 50 mcg/actuation spray,suspension intranasal simethicone 180 mg capsule 180 mg PO QID 30 Days Qty: 120 3RF Rx Instructions: after meals Creon 3,000-9,500- 15,000 unit capsule,delayed release(DR/EC) 1 cap PO QIDACHS 30 Days Qty: 120 3RF Rx Instructions: do not exceed 10,000 unit/kg lipase per 24 hrs Mirena 20 mcg/24 hours (7 yrs) 52 mg intrauterine device intrauterine Referrals: Dagmar Bruce COMPUTER REPAIR INSTRUCTOR [Primary Care Provider] - 3 days Interventions: ED Discharge Assessment Last Done: 04/22/23 17:55 Discharge Date/Time: 04/22/23 17:55
--- NOTE | 2023-04-22 13:59 | PC.NURSE ---
respiratory called for updraft
[2023-04-22] MEDS: Albuterol Sulfate (0.083%) 2.5 MG/3 ML VIAL.NEB 5 MG INHALE (14:10)
[2023-04-22 14:11] VITALS: PULSE 101; RESP 26; O2SAT 99
[2023-04-22] MEDS: methylPREDNISolone Sod Succ 125 MG/2 ML VIAL IVPUSH (14:40)
[2023-04-22 14:41] LABS: MANUAL DIFF FLAG NO
[2023-04-22 14:44] LABS: Basophils Absolute Auto 0.1 X10*3/uL (0.0-0.2); Basophils Percent Auto 0.8 % (0-2); Eosinophils Absolute Auto 0.7 X10*3/uL (0.0-0.4); Eosinophils Percent Auto 9.8 % (0-4); Hematocrit 42.9 % (37.0-47.0); Hemoglobin 14.6 g/dl (12.0-16.0); Imm Gran Abs Auto 0.02 X10*3/uL (0.00-0.03); Imm Gran Pct Auto 0.3 % (0.0-0.4); Lymphocytes Percent Auto 41.7 % (20-40); Mean Corpuscular Hemoglobin 27.7 pg (27.0-33.0); Mean Corpuscular Volume 81.4 fL (80.0-98.0); Mean Platelet Volume 9.7 fL (9.4-12.3); Monocytes Absolute Auto 0.3 X10*3/uL (0.1-1.2); Monocytes Percent Auto 4.8 % (2-11); Neutrophils Absolute Auto 3.1 x10*3/uL (2.0-8.3); Neutrophils Percent Auto 42.6 % (45-73); Platelet Count 294 X10*3/uL (160-400); Red Blood Count 5.27 X10*6/uL (4.20-5.50); Red Cell Distribution Width 14.7 % (11.0-16.0); White Blood Count 7.2 X10*3/uL (4.8-10.8)
[2023-04-22 14:53] LABS: Influenza A PCR NEGATIVE (Negative); Influenza B PCR NEGATIVE (Negative); Resp Syncy Virus RNA Qual PCR NEGATIVE (Negative); SARS COV2 PCR INHOUSE NEGATIVE (Negative)
[2023-04-22 15:13] VITALS: PULSE 96; RESP 20; O2SAT 99
[2023-04-22] MEDS: Albuterol Sulfate 7.5 MG, Albuterol/Iprat 2.5/0.5MG 3 ML 3 ML INHALE (15:13)
[2023-04-22] MEDS: Magnesium Sulfate/H2O 2 GM/50 ML PIGGYBACK IV (15:17)
--- NOTE | 2023-04-22 15:21 | ECG_ITS ---
Test Reason : SOB Blood Pressure : / mmHG Vent. Rate : 102 BPM Atrial Rate : 102 BPM P-R Int : 134 ms QRS Dur : 080 ms QT Int : 386 ms P-R-T Axes : 050 041 009 degrees QTc Int : 503 ms Sinus tachycardia Nonspecific T wave abnormality Abnormal ECG When compared with ECG of 21-MAY-2022 10:04, Nonspecific T wave abnormality now evident in Anterior leads QT has lengthened Referred By: Samantha Montes Electronically Signed By:JOSEPHINE GUZMÁN
--- NOTE | 2023-04-22 15:36 | PC.NURSE ---
pt placed on quality assurance monitor final- hour long updraft initiated, 20G IV placed in LAC infusing Mg 2gm per order- pt alert and cooperative, call crowell within reach
[2023-04-22 17:02] LABS: Anion Gap 14 (12-20); Blood Urea Nitrogen 6 mg/dL (9-16); Calcium 9.3 mg/dL (8.4-10.2); Carbon Dioxide 24 mmol/L (22-29); Chloride 103 mmol/L (96-108); Creatinine Clr Calc Pharmacy 75.8; Estimated Glomerular Filt Rate > 60; Glucose Random 218 mg/dL (60-115); Potassium 3.3 mmol/L (3.3-5.1); Sodium 138 mmol/L (135-145)
== END 2023-04-22 17:55 | disposition home or self-care (01) ==
PROVIDERS: Physician Assistant; Registered Nurse Emergency; Emergency Provider Student in an Organized Health Care Education/Training Program; PCP Nurse Practitioner Primary Care
DX: R06.02 Shortness of breath (principal); R05.9 Cough, unspecified; R00.0 Tachycardia, unspecified; Z20.822 Contact with and (suspected) exposure to COVID-19; Z20.828 Contact with and (suspected) exposure to other viral communicable diseases; Z79.899 Other long term (current) drug therapy
CPT/HCPCS: 0241U; 36415; 71045; 80048; 85025; 93005; 94640; 96365; 96366; 96375; 99284; J2930; J3475

== ENCOUNTER → 2023-04-22 15:21 | Outpatient (BNV) | payer OTHER, SELFPAY | PROVIDERS: Emergency Provider Student in an Organized Health Care Education/Training Program; PCP Nurse Practitioner Primary Care; Visit Provider Internal Medicine | DX: R00.0 Tachycardia, unspecified (principal); R94.31 Abnormal electrocardiogram [ECG] [EKG] | CPT/HCPCS: 93010 ==

== ENCOUNTER 2023-06-14 13:49 | Outpatient (REF) | payer OTHER, SELFPAY ==
[2023-06-14 16:18] LABS: Estimated Average Glucose 140 mg/dL; Hemoglobin A1c % 6.5 % (<6.0)
[2023-06-14 16:22] LABS: Cholesterol 180 mg/dL (<200); HDL Cholesterol 32 mg/dL (>40); Triglycerides 443 mg/dL (<150)
[2023-06-14 16:31] LABS: Reflex LDLD? Yes
[2023-06-14 16:36] LABS: Alanine Aminotransferase 37 U/L (0-31); Alkaline Phosphatase 71 U/L (39-117); Anion Gap 13 (12-20); Aspartate Amino Transferase 25 U/L (5-31); Bilirubin Total 0.3 mg/dL (0.0-1.0); Blood Urea Nitrogen 9 mg/dL (9-16); Calcium 9.4 mg/dL (8.4-10.2); Carbon Dioxide 27 mmol/L (22-29); Chloride 104 mmol/L (96-108); Estimated Glomerular Filt Rate > 60; Glucose Random 135 mg/dL (60-115); Potassium 3.4 mmol/L (3.3-5.1); Sodium 141 mmol/L (135-145); Total Protein 7.2 g/dL (6.5-8.0)
[2023-06-14 16:42] LABS: TSH reflex Free T4 1.84 uIU/mL (0.32-4.0)
[2023-06-15 03:40] LABS: Syphilis Screen Nonreactive (Nonreactive)
[2023-06-15 05:19] LABS: HBc Num1 0.11 S/CO (0.00-0.79); HBsAGNum1 0.35 S/CO (0.00-0.99); HIV AB/AG Nonreactive (Nonreactive); HIV Num 1 0.04 S/CO (0.00-0.99); Hepatitis B Core Antibody Nonreactive (Nonreactive); Hepatitis B Surface Antigen Negative (Negative); ~HepC Num1 0.44 S/CO (0.00-0.79); ~Hepatitis C Antibody Nonreactive (Nonreactive)
[2023-06-15 05:28] LABS: CT PCR NOT DETECTED (Not Detect.); NG PCR NOT DETECTED (Not Detect.)
[2023-06-16 04:43] LABS: LDL Cholesterol Direct 107 mg/dL (<100)
== END 2023-06-14 13:50 | disposition home or self-care (01) ==
LOC: HO.HHCL 13:49
PROVIDERS: Visit Provider Family Medicine
DX: Z00.00 Encounter for general adult medical examination without abnormal findings (principal); Z11.4 Encounter for screening for human immunodeficiency virus [HIV]; Z11.3 Encounter for screening for infections with a predominantly sexual mode of transmission; I10 Essential (primary) hypertension
CPT/HCPCS: 0353U; 36415; 80053; 80061; 83036; 83721; 84443; 86704; 86780; 86803; 87340; 87389

== ENCOUNTER 2023-06-16 13:02 | Outpatient (AMB) | payer OTHER, SELFPAY ==
[2023-06-16 13:19] VITALS: BP 152/86; BMI 36.9
--- NOTE | 2023-06-16 13:19 | MHC.OFFVIS ---
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 It's consult in nature and occurs every day. 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[place] Sexual orientation: Straight/Heterosexual Gender identity: Female Female Reproductive History Menstrual Age of Menarche: 17 control method: permanent sterilization Date of last pap smear: 08/06/21 (negative) Review of Systems Const All systems reviewed & are unremarkable except as noted in HPI and below Physical Exam General: Yes no CVA tenderness External Female Exam: normal external appearance and normal appearance of the urethra Speculum Exam - Vagina: normal appearance of the vagina, normal palpation, no lesions and no masses Speculum Exam - Cervix: normal appearance of the cervix, normal palpation, no lesions, no masses and nontender Bimanual exam- vagina & uterus: normal bimanual exam, normal palpation, uterine size normal, normal palpation, uterine shape normal, No Cervical tenderness present and non-tender Bimanual Exam- Adnexa, other: normal adnexae Back/Spine/Pelvis Back: no CVA tenderness Assessment & Plan Assessment & Plan (1) Pelvic pain: Comment: History of hysterectomy History of endometriosis Code(s): R10.2 - Pelvic and perineal pain Plan: Pelvic ultrasound ordered. Discussed with the patient the differential diagnosis of pelvic pain including but not limited to adnexal, pelvic adhesions secondary to previous surgery, GI the (Irritable bowel syndrome, diverticulitis, others), musculoskeletal, myofascial pain abdominal wall , endometriosis, psychological and others causes. Will check results and treat accordingly. All questions answered, the patient verbalized understanding. Instructed the patient to schedule follow-up appointment in 2 weeks (2) Microscopic hematuria: Code(s): R31.29 - Other microscopic hematuria Plan: Urine dip done in the office was positive for microscopic hematuria, urine culture sent. Repeat urine dip in 2 weeks if persistent microscopic hematuria with negative urine culture will proceed with CT scan of abdomen pelvis and referral to Urology, if urine culture is positive will treat with antibiotics Coding Level of Care Code Est Pt Level 3 (00870) Diagnoses Pelvic pain R10.2 Microscopic hematuria R31.29
== END 2023-06-16 15:00 | disposition home or self-care (01) ==
PROVIDERS: PCP Nurse Practitioner Primary Care; Visit Provider Obstetrics & Gynecology
DX: R31.29 Other microscopic hematuria (principal); R10.2 Pelvic and perineal pain
CPT/HCPCS: 99213

== ENCOUNTER 2023-06-16 13:02 | Outpatient (REF) | payer OTHER, SELFPAY | END 2023-06-16 13:03 | disposition home or self-care (01) | LOC: HO.LNP 13:02 | PROVIDERS: PCP Nurse Practitioner Primary Care; Visit Provider Obstetrics & Gynecology | DX: R31.29 Other microscopic hematuria (principal); R10.2 Pelvic and perineal pain | CPT/HCPCS: 81003; 87086; 87088; 87186; 99212 ==

== ENCOUNTER 2023-07-01 10:55 | Outpatient (REF) | payer OTHER, SELFPAY ==
--- NOTE | ~2023-07-01 | US_ITS ---
EXAMINATION: US PELVIS CLINICAL INFORMATION: Right lower quadrant pelvic pain, postmenopausal. Hysterectomy. COMPARISON: CT abdomen and pelvis 08/28/2022. Pelvic ultrasound 03/02/2022. TECHNIQUE: Ultrasound of the pelvis is performed using both transabdominal and transvaginal transducers along with Doppler. Transvaginal imaging is performed due to inadequate visualization transabdominally. FINDINGS: Uterus: The uterus is surgically absent. No significant free fluid. The left ovary is not visualized. The right ovary measures 6.8 x 3.9 cm on sagittal images and 4.3 cm on transverse image with volume of 59.71 mL. 3.3 x 2.4 x 3.3 cm simple right ovarian cyst. 4.1 x 3.6 x 3.3 cm complex right ovarian cyst with multiple thin septations. US/US pelvic and transvaginal IMPRESSION: 1. The uterus surgically absent. The left ovary is not visualized. 2. Right ovarian 4.1 cm complex cyst with multiple thin septations was not identified on prior exams. Gynecologic consultation recommended to determine further management for this postmenopausal patient. Recommend followup ultrasound in 6-12 weeks.
== END 2023-07-01 10:56 | disposition home or self-care (01) ==
LOC: HO.US 10:55
PROVIDERS: Visit Provider Obstetrics & Gynecology
DX: R10.2 Pelvic and perineal pain (principal)
CPT/HCPCS: 76830; 76856

== ENCOUNTER 2023-07-28 10:15 | Outpatient (AMB) | payer OTHER, SELFPAY ==
[2023-07-28 10:18] VITALS: BP 124/86; BMI 36.7
--- NOTE | 2023-07-28 10:18 | A.OFFVIS_ITS ---
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 Intake Note: no concerns Mechanic Helper Required: No Information Interpreted: non-clinical & clinical Biometry Teacher: Biometry Teacher Present (Elizabeth Burk NOBLE) Accompanied by: Self / Same As Patient Allergies No Known Allergies Allergy (Mild, Verified 07/28/23 10:23) NOT APPLICABLE HPI HPI Comments History of Present Illness Details Presenting for ultrasound follow-up and repeat urine dip for previously identified microscopic hematuria which was followed by urine culture positive for Klebsiella pneumoniae sensitive to Bactrim, the patient was prescribed and finish the course of Bactrim ds 1 tablet p.o. b.i.d. for 3 days. The patient still complaining of pelvic pain on the right side Last ultrasound was done recently for pelvic pain which showed following: Uterus: The uterus is surgically absent. No significant free fluid. The left ovary is not visualized. The right ovary measures 6.8 x 3.9 cm on sagittal images and 4.3 cm on transverse image with volume of 59.71 mL. 3.3 x 2.4 x 3.3 cm simple right ovarian cyst. 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[place] Sexual orientation: Straight/Heterosexual Gender identity: Female Female Reproductive History Menstrual Age of Menarche: 17 Date of last pap smear: 08/06/21 Date of Mammogram: 07/17/22 Review of Systems Const All systems reviewed & are unremarkable except as noted in HPI and below Reports as per HPI and Reports no additional complaints GI Reports no additional complaints Reports no additional complaints Physical Exam Vital Signs: Last Vital Signs BP 124/86 07/28/23 10:18 BMI result Body Mass Index 36.7 Results AMB Urinalysis Dipstick UR Leukocytes Negative Last Edit by Elizabeth Burk, AUTOMOBILE DESIGNER on 07/28/23 10:44 UR Nitrite Negative Last Edit by Elizabeth Burk, [facility] on 07/28/23 10:44 UR Urobilinogen Normal Last Edit by Elizabeth Burk, AUTOMOBILE DESIGNER on 07/28/23 10:44 UR Protein Negative Last Edit by Elizabeth Burk, [facility] on 07/28/23 10:44 UR Ph 7.0 Last Edit by Elizabeth Burk, AUTOMOBILE DESIGNER on 07/28/23 10:44 UR Blood Negative Last Edit by Elizabeth Burk, AUTOMOBILE DESIGNER on 07/28/23 10:44 UR Specific [place] 1.010 Last Edit by Elizabeth Burk, [facility] on 07/28/23 10:44 UR Ketone Negative Last Edit by Elizabeth Burk, [facility] on 07/28/23 10:44 UR Bilirubin Negative Last Edit by Elizabeth Burk, [facility] on 07/28/23 10:44 UR Glucose Negative Last Edit by Elizabeth Burk, [facility] on 07/28/23 10:44 Assessment & Plan Assessment & Plan (1) Microscopic hematuria: Code(s): R31.29 - Other microscopic hematuria Plan: Repeat urine dip showed no evidence of microscopic hematuria. The patient was reassured. (2) Complex ovarian cyst: Code(s): N83.299 - Other ovarian cyst, unspecified side Plan: Discussed with the patient the complex ovarian cyst by ultrasound. Discussed with the patient the Ultrasound findings, the main limitation of transvaginal ultrasonography alone as a diagnostic tool to distinguish benign from malignant masses relates to its lack of specificity and low positive predictive value for cancer. The differential diagnosis discussed with the patient includes the following but not limited to: benign and malignant gynecological and non-gynecological causes. Laboratory evaluation include UPT and GC/CT , serum tumor marker CA 125 . Discussed with the patient that CA 125 is a protein associated with epithelial ovarian malignancies, but also frequently expressed at lower levels by nonmalignant tissue. Elevation of CA 125 levels may occur in nonmalignant gynecologic conditions, and in non-gynecologic cancers, It is most useful in postmenopausal women and in identifying non mucinous epithelial cancer. The CA 125 level is elevated in 80% of patients with epithelial ovarian cancer but in only 50% of patients with stage I disease. The overall sensitivity of CA 125 testing in distinguishing benign from malignant adnexal masses reportedly ranges from 61% to 90%; discussed with the patient the specificity, positive predictive value and negative predictive value. Discussed with the patient options of treatment including laparoscopy ovarian cystectomy/oophorectomy vs. expectant management with repeat US in repeating pelvic US in 6-12 weeks from previous US. All pros, cons, risks and benefits of each approach were discussed with the patient the patient decided to proceed with surgical management . Discussed with the patient that per ACOG guidelines, when a patient with a suspicious or persistent complex adnexal mass requires surgical evaluation, a physician trained to appropriately stage and debulk ovarian cancer should perform the operation. Surgical exploration should be performed in a hospital facility that has the necessary support and consultative services to optimize the patient?s outcome. When a malignant ovarian tumor is discovered incidentally, a gynecologic oncologist should be consulted intraoperatively. Informed the patient that there is no gynecologic oncologist available on staff at [facility] , therefore the patient will be referred to [facility] practice where during surgery there is immediate access to a gynecologic oncologist intraoperatively in case there was any suspicion or evidence of ma lignancy. Instructed the patient to call our office back in case a referral appointment is not scheduled, missed or canceled so that we will assist on rescheduling another appointment, the patient verbalized understanding agreed with the plan. Orders: Orders CA-125 Today N83.299 - Other ovarian cyst, unspecified side Coding Level of Care Code Est Pt Level 3 (32581) Diagnoses Microscopic hematuria R31.29 Complex ovarian cyst N83.299
== END 2023-07-28 10:41 | disposition home or self-care (01) ==
PROVIDERS: PCP Internal Medicine; Visit Provider Obstetrics & Gynecology
DX: R31.29 Other microscopic hematuria (principal); N83.299 Other ovarian cyst, unspecified side
CPT/HCPCS: 99213

== ENCOUNTER 2023-07-28 10:15 | Outpatient (REF) | payer OTHER, SELFPAY ==
[2023-07-29 12:33] LABS: CA-125 10 U/mL (<35)
== END 2023-07-28 10:16 | disposition home or self-care (01) ==
LOC: HO.LAB 10:15
PROVIDERS: PCP Internal Medicine; Visit Provider Obstetrics & Gynecology
DX: Z01.419 Encounter for gynecological examination (general) (routine) without abnormal findings (principal); N83.291 Other ovarian cyst, right side; R10.2 Pelvic and perineal pain; R31.29 Other microscopic hematuria
CPT/HCPCS: 36415; 81002; 86304; 99212

== ENCOUNTER 2023-11-02 10:39 | Outpatient (AMB) | payer OTHER, SELFPAY ==
[2023-11-02 10:46] VITALS: BP 122/74; BMI 36.7
--- NOTE | 2023-11-02 10:46 | MHC.OFFVIS ---
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 Complaining of left upper side skin tag rubbing on her clothes. Last Pap/HPV was negative in 08/10 Last Mammogram was BI-RADS 1 in 07/11 Last colonoscopy was in 02/08, the recommendation was to repeat in 1 year due to poor prep PFSH Medical History (Updated 11/02/23 @ 11:05 by Huan Pfeiffer MD) Allergic rhinitis Anxiety Asthma COVID-19 Hx of seasonal allergies Hx of endometriosis Surgical History (Updated 11/02/23 @ 11:06 by Huan Pfeiffer MD) S/P bilateral salpingo-oophorectomy History of removal of both ovaries Hx of hysterectomy Hx of colonoscopy Hx of tubal ligation Hx of cholecystectomy Family History (Updated 11/02/23 @ 10:55 by Elizabeth Burk CMA) Mother HTN (hypertension) Diabetes Epilepsy Social History Household Members: None Housing: Apartment Alcohol intake: never Patient Tobacco Use Status: Never used Tobacco Current occupational status: employed 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[place] Sexual orientation: Straight/Heterosexual Gender identity: Female Female Reproductive History Menstrual Age of Menarche: 17 Menopause type: surgical Total pregnancies: 6 Full term: 2 Number of Living Children: 2 Ab spontaneous: 4 Date of Mammogram: 07/17/22 Review of Systems Const All systems reviewed & are unremarkable except as noted in HPI and below Card Reports as per HPI Resp Reports as per HPI GI Reports as per HPI and Reports no additional complaints Reports as per HPI Physical Exam Vital Signs: Last Vital Signs BP 122/74 11/02/23 10:46 BMI result Body Mass Index 36.7 Const General: cooperative, healthy appearing and comfortable Chest Chest palpation & inspection: normal inspection of the chest and normal palpation of entire chest wall Breast/axilla inspection: normal inspection of the breasts and normal inspection of the axillae Breast/axilla palpation: normal palpation of the breasts, normal palpation of the axillae and no axillary lymphadenopathy Resp Effort & Inspection: normal respiratory effort Auscultation: clear to auscultation bilaterally Percussion: percussion normal Cardio Palpation: normal PMI Rate: regular rate Rhythm: regular rhythm Heart sounds: no murmurs and no rubs Peripheral pulses: Peripheral pulses 2+ throughout GI Inspection: Yes normal to inspection Palpation (GI): Soft to palpation, nontender, no guarding, not rigid and No hepatosplenomegaly present Percussion: Yes normal to percussion Auscultation: normal bowel sounds Rectal Exam - Female: deferred External Female Exam: No lesion Speculum Exam - Vagina: normal appearance of the vagina, normal vaginal discharge and not erythematous Speculum Exam - Cervix: Cervix absent Bimanual exam- vagina & uterus: normal bimanual exam and uterus absent Bimanual Exam- Adnexa, other: tender Assessment & Plan Assessment & Plan (1) Well woman exam: Code(s): Z01.419 - Encounter for gynecological examination (general) (routine) without abnormal findings Plan: Co testing not indicated since the patient has no history of abnormal Pap smear and status post hysterectomy Counseled the patient about the recommended dietary allowance of 1200 mg of Calcium & 600 IU of vitamin D. Mammogram ordered. The patient was referred to GI for screening colonoscopy . The patient was instructed to perform monthly self-breast exams and schedule annual exam in a year. All questions answered and the patient verbalized understanding. (2) Skin tag: Comment: Left upper thigh Code(s): L91.8 - Other hypertrophic disorders of the skin Plan: Discussed with the patient the finding on physical exam showing a small skin tag in the left upper thigh, recommended excision. Instructions given the patient to schedule an appointment for skin tag excision of the left upper thigh. All questions answered, the patient verbalized understanding Orders: Orders MM tomosynthesis screening BI Today Z12.31 - Encounter for screening mammogram for malignant neoplasm of breast Referrals Gastroenterology Referral Z12.11 - Encounter for screening for malignant neoplasm of colon Coding Level of Care Code Est Pt Prev Care 40-64y(88980) Diagnoses Well woman exam Z01.419 Skin tag L91.8
== END 2023-11-02 12:06 | disposition home or self-care (01) ==
LOC: HO.HWS 10:39
PROVIDERS: PCP Internal Medicine; Visit Provider Obstetrics & Gynecology
DX: Z01.419 Encounter for gynecological examination (general) (routine) without abnormal findings (principal); L91.8 Other hypertrophic disorders of the skin
CPT/HCPCS: 99396

== ENCOUNTER → 2023-11-02 10:39 | Outpatient (BNVA) | payer OTHER, SELFPAY | PROVIDERS: PCP Internal Medicine; Visit Provider Obstetrics & Gynecology | DX: Z01.419 Encounter for gynecological examination (general) (routine) without abnormal findings (principal); L91.8 Other hypertrophic disorders of the skin | CPT/HCPCS: 99396 ==

== ENCOUNTER 2023-11-20 08:14 | Outpatient (REF) | payer OTHER, SELFPAY | END 2023-11-20 08:15 | disposition home or self-care (01) | LOC: HO.MAMMO 08:14 | PROVIDERS: PCP Internal Medicine; Referring Provider Obstetrics & Gynecology; Visit Provider Nurse Practitioner Primary Care | DX: Z12.31 Encounter for screening mammogram for malignant neoplasm of breast (principal) | CPT/HCPCS: 77063; 77067 ==

== ENCOUNTER → 2023-11-20 08:15 | Outpatient (BNV) | payer OTHER, SELFPAY | PROVIDERS: PCP Internal Medicine; Referring Provider Obstetrics & Gynecology; Visit Provider Radiology Diagnostic Radiology | DX: Z12.31 Encounter for screening mammogram for malignant neoplasm of breast (principal) | CPT/HCPCS: 77063; 77067 ==

== ENCOUNTER 2023-12-13 18:15 | Outpatient (REF) | payer OTHER, SELFPAY ==
[2023-12-13 18:30] LABS: Creatinine Urine 40.97 mg/dL; Microalbumin Urine < 5.0 mg/L
== END 2023-12-13 18:16 | disposition home or self-care (01) ==
LOC: HO.HHCLNP 18:15
PROVIDERS: Visit Provider Family Medicine
DX: E11.9 Type 2 diabetes mellitus without complications (principal)
CPT/HCPCS: 82570

== ENCOUNTER → 2023-12-15 11:48 | Outpatient (BNVA) | payer OTHER, SELFPAY | PROVIDERS: PCP Internal Medicine; Visit Provider Nurse Practitioner ==

== ENCOUNTER 2023-12-27 11:00 | Outpatient (REF) | payer OTHER, SELFPAY | END 2023-12-27 11:01 | disposition home or self-care (01) | LOC: HO.LAB 11:00 | PROVIDERS: PCP Internal Medicine; Visit Provider Obstetrics & Gynecology | DX: L91.8 Other hypertrophic disorders of the skin (principal) | CPT/HCPCS: 11200; 11400; 88304 ==

== ENCOUNTER 2023-12-27 11:00 | Outpatient (AMB) | payer OTHER, SELFPAY ==
--- NOTE | 2023-12-27 11:12 | MHC.OFFVIS ---
Intake Vital Signs 12/27/23 11:13 Height 5 ft 2 in Weight 194 lb BMI 35.5 BP 114/70 Intake Visit Reasons: skin tag removal/DO NOT RS Cattery Operator: Cattery Operator Present (Thalia) Allergies No Known Allergies Allergy (Mild, Verified 12/27/23 11:12) NOT APPLICABLE HPI HPI Comments History of Present Illness Details The patient is presenting for left upper thigh skin tag removal, it rubs on her clothes and would like it taken out PFSH Medical History Allergic rhinitis Anxiety Asthma COVID-19 Hx of seasonal allergies Hx of endometriosis Surgical History S/P bilateral salpingo-oophorectomy History of removal of both ovaries Hx of hysterectomy Hx of colonoscopy Hx of tubal ligation Hx of cholecystectomy Family History Mother HTN (hypertension) Diabetes Epilepsy Social History Household Members: None Housing: Apartment Alcohol intake: never Patient Tobacco Use Status: Never used Tobacco Current occupational status: employed 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 Preop dx: Left upper thigh skin tag Op: L Left upper thigh skin tag excision Post op: Same Anesthesia: Lidocaine 1% 3cc used Procedure: Using betadine the area was scrubbed and draped in the usual manner. 3 cc of lidocaine was used for anesthesia at the left vulvar lesion area ; using scissors and pickup the Left upper thigh skin tag was excised. Pressure was used for hemostasis. The patient tolerated the procedure well. Discharge Instructions: The patient was instructed to schedule an appointment in 2 weeks for follow-up and to call if temp>100.4, area of the biopsy redness or pain, nausea/vomiting. This note was generated with a voice recognition program. Some errors may have been overlooked during the review of this note. Sometimes these errors may affect the content or meaning of a given sentence. 04335-qvthf/arms/legs < 0.5cm Procedure code (CPT) selection complete Office Meds lidocaine 1 %-epinephrine 1:100,000 injection solution Performing Provider: Huan Pfeiffer MD Performing Location: [employer] [facility] [place] [facility] Documented (not given) by: Huan Pfeiffer MD on 12/27/23 11:27 Dose Route Admin Location Dispensed Lot Number Expiration Date NDC Video Technician 30 mL Infiltration mL Assessment & Plan Assessment & Plan (1) Skin tag: Comment: Left upper thigh Code(s): L91.8 - Other hypertrophic disorders of the skin Plan: Skin tag excised, see procedure note Orders: Orders AMB Excision Today L91.8 - Other hypertrophic disorders of the skin Medications: New lidocaine-epinephrine 1 %-1:100,000 30 mL Infiltration ONCE 30 mL 0RF L91.8 - Other hypertrophic disorders of the skin Coding Level of Care Code Procedure Only Diagnoses Skin tag L91.8 CPT Codes Trunk/Arms/Legs - CPT: 35402-tqpdh/arms/legs < 0.5cm ([id number])
[2023-12-27 11:13] VITALS: BP 114/70; BMI 35.5
== END 2023-12-27 13:06 | disposition home or self-care (01) ==
LOC: HO.HWS 11:00
PROVIDERS: PCP Internal Medicine; Visit Provider Obstetrics & Gynecology
DX: L91.8 Other hypertrophic disorders of the skin (principal)
CPT/HCPCS: 11400

== ENCOUNTER 2024-01-07 09:12 | Outpatient (AMB) | payer OTHER, SELFPAY ==
--- NOTE | 2024-01-07 09:27 | MHC.OFFVIS ---
Vital Signs 01/07/24 09:36 Height 5 ft 2 in Weight 193 lb BMI 35.3 BP 134/63 Blood Pressure Location Lt brachial Position Sitting Pulse 71 Intake Visit Reasons: Pre Colonoscopy Screening Intake Note: Patient is seen in office for colonoscopy screening. Pt c/o: denies any concerns at the time of visit. Physician Obstetrician Required: No Accompanied by: Self / Same As Patient Allergies No Known Allergies Allergy (Mild, Verified 01/07/24 09:37) NOT APPLICABLE HPI HPI Pre Colonoscopy Screening: Details: Assessment & Plan (1) Small intestinal bacterial overgrowth: ?Code(s): K63.89 - Other specified diseases of intestine ?Plan: She has not yet had gastric emptying study booked and her colonoscopy is upcoming.? She does not feel that her gas and bloating was at all affected by the Flagyl so will moved to the next trial and try putting her on Creon.? I explained to her that this frequently is not something well diagnosed by 1 test and we will usually needs some empiric trials to figure out exactly why she is having the problem.? She is quite agreeable to this.? At this point she will keep her follow-up appointment after the colonoscopy in January.? (2) Colon cancer screening: ?Code(s): Z12.11 - Encounter for screening for malignant neoplasm of colon ? ? ? Medications: New qkzglx-ydoeojoa-mqqyubw 3,000-9,500- 15,000 unit (Creon) ?? do not exceed 10,000 unit/kg lipase per 24 hrs 1 cap? PO QIDACHS 30 days 120 caps 3RF K59.04 - Chronic idiopathic constipation ? Discontinued metronidazole ?? Discontinued Reason:? Doctor's Order 500 mg? PO TID 10 days 30 tabs 0RF ? ? COLONOSCOPY 02/03/22 Findings: Terminal Ileum-normal Cecum:normal Ascending Colon: normal Transverse Colon -normal Descending Colon:normal Sigmoid Colon:? normal Rectum: Retroflexion with small internal hemorrhoids, grade I Anorectum - normal Impression and Post Procedure Diagnosis: poor prep internal hemorrhoids Plan: High fiber diet leaflet Avoid straining at stool, epsom salts and sitz bath, anusol supps or cream Repeat Colonoscopy in 1 year due to poor prep or earlier if clinically indicated-next time follow instructions for diet TODAY'S VISIT This patient has been lost to follow-up since 01/2022, shoes overdue for repeat scope because of poor prep. We will need to give her a 2 day prep and I explained this to her. She is agreeable going for repeat lab work to refresh her values for the procedure. We review her last colonoscopy just to make sure she was aware findings. For some reason I did not see her after the procedure a year ago. She denies any changes to her health since I last saw her. There are no prior problems with anesthesia or sedation. She denies any cardiac or respiratory problems. No ID problems. Her mother and father did not have CRC or polyps, she is unsure of the extended family. [facility] Medical History Well woman exam IUD check up Encounter for IUD removal Colon cancer screening Colon cancer screening Encounter for IUD insertion Screening mammogram, encounter for HPV test positive Potential exposure to STD Irregular bleeding Allergic rhinitis Anxiety Asthma COVID-19 Hx of seasonal allergies Hx of endometriosis Surgical History Hx of cholecystectomy S/P bilateral salpingo-oophorectomy History of removal of both ovaries Hx of hysterectomy Hx of colonoscopy Hx of tubal ligation Family History Mother HTN (hypertension) Diabetes Epilepsy Social History Household Members: None Housing: Apartment Alcohol intake: never Patient Tobacco Use Status: Never used Tobacco Current occupational status: employed 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[place] Sexual orientation: Straight/Heterosexual Gender identity: Female Female Reproductive History Menstrual Age of Menarche: 17 Review of Systems Const Denies fatigue, Denies fever(s), Denies night sweats, Denies poor appetite and Denies weight loss Eyes Details: glasses Reports requires corrective lenses ENT Reports Normal hearing present, Denies dental pain, Denies dysphagia, Denies hearing loss, Denies mouth pain, Denies odynophagia, Denies throat swelling, Denies tongue swelling and Reports other (Dentition adequate) Card Reports no additional complaints Resp Reports wheezing GI Details: Denies abdominal pain, Denies melena, Denies bloating, Denies hematochezia, Denies constipation, Denies GI cramping, Denies dysphagia, Denies excessive flatus, Denies early satiety, Denies heartburn, Denies diarrhea, Denies nausea, Denies odynophagia, Denies vomiting and Denies hematemesis Skin/Breast Denies pruritus, Denies lesions, Denies rash and Denies jaundice Neuro Reports Normal hearing present and Denies Abnormal speech present Endo Denies fatigue Aller/Immun Denies throat swelling, Denies tongue swelling and Reports wheezing Physical Exam Vital Signs: Last Vital Signs Pulse 71 01/07/24 09:36 BP 134/63 01/07/24 09:36 BMI result Body Mass Index 35.3 Const General: cooperative, no acute distress, well developed and well groomed Nutritional Appearance: well nourished and obese Orientation/consciousness: oriented to person, oriented to place and oriented to time Limitations: No language barrier HEENT Head: Yes normocephalic and Yes atraumatic Eyes General: appearance normal, both eyes and all related structures Pupils: Equal, round and reactive pupils present Neck Neck: Yes normal visual inspection and Yes no lymphadenopathy Thyroid: Thyroid normal Resp Effort & Inspection: normal respiratory effort and able to speak in complete sentences Auscultation: wheezes right upper and diminished lung sounds bilateral in the lower lung mattson Cardio Rate: regular rate Rhythm: regular rhythm Heart sounds: Normal, physiologic split S2 sound present Peripheral pulses: radial pulses present and posterior tibial pulses present GI Inspection: No distended, Yes Abdominal panniculus present and Yes obesity Palpation (GI): Soft to palpation, nontender, no guarding, not rigid and No hepatosplenomegaly present Percussion: Yes normal to percussion Auscultation: normal bowel sounds Rectal Exam - Female: deferred Abdomen image: 1. surgical scars 2. Skin General skin exam: no rashes or lesions noted, turgor normal, skin not dry, no jaundice, No spider nevi and no striae Rashes: no rashes Nails: normal Neuro General: oriented to person, oriented to place and oriented to time Cranial nerves: Yes Equal, round and reactive pupils present and Yes Normal hearing present Speech: No Abnormal speech present Extrem General: Yes normal to inspection, No clubbing, No cyanosis and No edema Psych Appearance: grossly normal and well kempt Mental Status: mental status grossly normal Speech and movement: Normal speech and movement present Affect: normal affect Attitude: cooperative Thought process: Normal thought process present and not confabulating Thought content: Normal thought content present Insight: Fair insight present (Psych) Judgement: Fair judgement present (Psych) Results Reviewed Results Reviewed: COLONOSCOPY 02/03/22 Findings: Terminal Ileum-normal Cecum:normal Ascending Colon: normal Transverse Colon -normal Descending Colon:normal Sigmoid Colon:? normal Rectum: Retroflexion with small internal hemorrhoids, grade I Anorectum - normal Impression and Post Procedure Diagnosis: poor prep internal hemorrhoids Plan: High fiber diet leaflet Avoid straining at stool, epsom salts and sitz bath, anusol supps or cream Repeat Colonoscopy in 1 year due to poor prep or earlier if clinically indicated-next time follow instructions for diet Assessment & Plan Assessment & Plan (1) Pre-op examination: Code(s): Z01.818 - Encounter for other preprocedural examination Category: Medical (2) Morbid (severe) obesity due to excess calories: Code(s): E66.01 - Morbid (severe) obesity due to excess calories Category: Medical Plan This patient has been lost to follow-up since 01/2022, shoes overdue for repeat scope because of poor prep. We will need to give her a 2 day prep and I explained this to her. She is agreeable going for repeat lab work to refresh her values for the procedure. We review her last colonoscopy just to make sure she was aware findings. For some reason I did not see her after the procedure a year ago. She denies any changes to her health since I last saw her. There are no prior problems with anesthesia or sedation. She denies any cardiac or respiratory problems. No ID problems. Her mother and father did not have CRC or polyps, she is unsure of the extended family. Orders: Orders Comprehensive Met. Panel Today Z01.818 - Encounter for other preprocedural examination Complete Blood Count Auto Diff Today Z01.818 - Encounter for other preprocedural examination Colonoscopy - GI Use Only Today Z01.818 - Encounter for other preprocedural examination Medications: New bisacodyl (Dulcolax (bisacodyl)) 10 mg (2 x 5 mg) PO BEDTIME 2 days 8 tabs 0RF peg 3350-electrolytes 236-22.74-6.74 -5.86 gram (Golytely) until fecal effluent is clear; do not exceed a total volume of 2,000 mL 240 mL PO Q10M 1 day 4,000 mL 0RF Z12.11 - Encounter for screening for malignant neoplasm of colon Discontinued bdgwcq-gymcxviz-lzqdmvx 3,000-9,500- 15,000 unit (Creon) do not exceed 10,000 unit/kg lipase per 24 hrs Discontinued Reason: Doctor's Order 1 cap PO QIDACHS 30 days 120 caps 3RF K59.04 - Chronic idiopathic constipation
[2024-01-07 09:36] VITALS: BP 134/63; PULSE 71; BMI 35.3
== END 2024-01-07 09:51 | disposition home or self-care (01) ==
PROVIDERS: PCP Internal Medicine; Visit Provider Nurse Practitioner
DX: Z01.818 Encounter for other preprocedural examination (principal); E66.01 Morbid (severe) obesity due to excess calories
CPT/HCPCS: 99214

== ENCOUNTER → 2024-01-07 09:12 | Outpatient (BNVA) | payer OTHER, SELFPAY | PROVIDERS: PCP Internal Medicine; Visit Provider Nurse Practitioner | DX: Z01.818 Encounter for other preprocedural examination (principal); E66.01 Morbid (severe) obesity due to excess calories; Z68.35 Body mass index [BMI] 35.0-35.9, adult | CPT/HCPCS: 99212 ==

== ENCOUNTER 2024-01-12 14:27 | Outpatient (AMB) | payer OTHER, SELFPAY ==
--- NOTE | 2024-01-12 14:32 | MHC.OFFVIS ---
Vital Signs 01/12/24 14:33 Height 5 ft 2 in Weight 191 lb 12.835 oz BMI 35.1 BP 126/78 Intake Visit Reasons: 2 week follow up Allergies No Known Allergies Allergy (Mild, Verified 01/07/24 09:37) NOT APPLICABLE HPI Comments Details: Presenting for follow-up post excision of thigh skin tags, doing well with no complaints. The pathology showed the following: Skin, left upper thigh, excision: Fibroepithelial polyp PFSH Medical History Well woman exam IUD check up Encounter for IUD removal Colon cancer screening Colon cancer screening Encounter for IUD insertion Screening mammogram, encounter for HPV test positive Potential exposure to STD Irregular bleeding Allergic rhinitis Anxiety Asthma COVID-19 Hx of seasonal allergies Hx of endometriosis Surgical History Hx of cholecystectomy S/P bilateral salpingo-oophorectomy History of removal of both ovaries Hx of hysterectomy Hx of colonoscopy Hx of tubal ligation Family History Mother HTN (hypertension) Diabetes Epilepsy Social History Household Members: None Housing: Apartment Alcohol intake: never Patient Tobacco Use Status: Never used Tobacco Current occupational status: employed 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[employer] [place] Sexual orientation: Straight/Heterosexual Gender identity: Female Female Reproductive History Menstrual Age of Menarche: 17 Review of Systems Const All systems reviewed & are unremarkable except as noted in HPI and below Reports as per HPI and Reports no additional complaints GI Reports no additional complaints Reports no additional complaints Physical Exam Vital Signs: Last Vital Signs BP 126/78 01/12/24 14:33 BMI result Body Mass Index 35.1 Assessment & Plan Assessment & Plan (1) Skin tag: Comment: Left upper thigh Code(s): L91.8 - Other hypertrophic disorders of the skin Category: Medical Plan: Discussed with the patient the results the pathology, the patient was reassured. All questions answered, the patient verbalized understanding. Coding Level of Care Code Est Pt Level 3 (15367) Diagnoses Skin tag L91.8
[2024-01-12 14:33] VITALS: BP 126/78; BMI 35.1
== END 2024-01-12 15:24 | disposition home or self-care (01) ==
LOC: HO.HWS 14:27
PROVIDERS: PCP Internal Medicine; Visit Provider Obstetrics & Gynecology
DX: L91.8 Other hypertrophic disorders of the skin (principal)
CPT/HCPCS: 99213

== ENCOUNTER → 2024-01-12 14:27 | Outpatient (BNVA) | payer OTHER, SELFPAY | PROVIDERS: PCP Internal Medicine; Visit Provider Obstetrics & Gynecology | DX: L91.8 Other hypertrophic disorders of the skin (principal) | CPT/HCPCS: 99212 ==

== ENCOUNTER 2024-01-17 10:56 | Outpatient (REF) | payer OTHER, SELFPAY ==
[2024-01-17 11:22] LABS: MANUAL DIFF FLAG NO
[2024-01-17 12:25] LABS: Basophils Percent Auto 0.5 % (0-2); Eosinophils Absolute Auto 0.3 X10*3/uL (0.0-0.4); Eosinophils Percent Auto 4.7 % (0-4); Hematocrit 39.6 % (37.0-47.0); Hemoglobin 13.4 g/dl (12.0-16.0); Imm Gran Abs Auto 0.02 X10*3/uL (0.00-0.03); Imm Gran Pct Auto 0.4 % (0.0-0.4); Lymphocytes Absolute Auto 2.3 X10*3/uL (1.2-4.9); Mean Corpuscular HGB Conc 33.8 g/dl (31.0-35.0); Mean Corpuscular Hemoglobin 28.4 pg (27.0-33.0); Mean Corpuscular Volume 83.9 fL (80.0-98.0); Mean Platelet Volume 10.4 fL (9.4-12.3); Monocytes Absolute Auto 0.4 X10*3/uL (0.1-1.2); Monocytes Percent Auto 7.3 % (2-11); Neutrophils Absolute Auto 2.6 x10*3/uL (2.0-8.3); Neutrophils Percent Auto 46.1 % (45-73); Platelet Count 301 X10*3/uL (160-400); Red Blood Count 4.72 X10*6/uL (4.20-5.50); White Blood Count 5.6 X10*3/uL (4.8-10.8)
[2024-01-17 13:05] LABS: Alanine Aminotransferase 33 U/L (0-31); Albumin Level 4.2 g/dL (3.5-5.0); Alkaline Phosphatase 85 U/L (39-117); Anion Gap 15 (12-20); Aspartate Amino Transferase 22 U/L (5-31); Bilirubin Total 0.3 mg/dL (0.0-1.0); Blood Urea Nitrogen 14 mg/dL (9-16); Calcium 10.2 mg/dL (8.4-10.2); Carbon Dioxide 28 mmol/L (22-29); Chloride 104 mmol/L (96-108); Estimated Glomerular Filt Rate > 60; Glucose Random 154 mg/dL (60-115); Potassium 3.5 mmol/L (3.3-5.1); Sodium 143 mmol/L (135-145); Total Protein 7.5 g/dL (6.5-8.0)
== END 2024-01-17 10:57 | disposition home or self-care (01) ==
LOC: HO.LAB 10:56
PROVIDERS: PCP Family Medicine; Visit Provider Nurse Practitioner
DX: Z01.818 Encounter for other preprocedural examination (principal)
CPT/HCPCS: 36415; 80053; 85025

== ENCOUNTER 2024-07-14 09:03 | Outpatient (REF) | payer OTHER, SELFPAY ==
[2024-07-14 10:57] LABS: Alanine Aminotransferase 86 U/L (0-31); Albumin Level 4.3 g/dL (3.5-5.0); Alkaline Phosphatase 88 U/L (39-117); Anion Gap 10 (12-20); Aspartate Amino Transferase 56 U/L (5-31); Bilirubin Total 0.3 mg/dL (0.0-1.0); Blood Urea Nitrogen 12 mg/dL (9-16); Calcium 9.8 mg/dL (8.4-10.2); Carbon Dioxide 33 mmol/L (22-29); Chloride 101 mmol/L (96-108); Cholesterol 188 mg/dL (<200); Estimated Glomerular Filt Rate > 60; Glucose Random 180 mg/dL (60-115); HDL Cholesterol 45 mg/dL (>40); LDL Cholesterol Calculated 80 mg/dL (<100); Potassium 3.3 mmol/L (3.3-5.1); Sodium 141 mmol/L (135-145); Total Protein 7.2 g/dL (6.5-8.0); Triglycerides 315 mg/dL (<150)
[2024-07-14 11:01] LABS: ~Hepatitis B Surface Antibody REACTIVE (Nonreactive)
[2024-07-14 11:04] LABS: TSH reflex Free T4 1.61 uIU/mL (0.32-4.0)
[2024-07-14 11:13] LABS: Creatinine Urine 20.53 mg/dL; Microalbumin Urine < 5.0 mg/L
[2024-07-14 11:14] LABS: Reflex LDLD? No
[2024-07-14 11:16] LABS: Folate 13.1 ng/mL (> or = 4.0); Vitamin B12 396 pg/mL (200-900)
== END 2024-07-14 09:04 | disposition home or self-care (01) ==
LOC: HO.LAB 09:03
PROVIDERS: PCP Family Medicine; Visit Provider Family Medicine
DX: E11.9 Type 2 diabetes mellitus without complications (principal)
CPT/HCPCS: 36415; 80053; 80061; 82043; 82570; 82607; 82746; 84443; 86706

== ENCOUNTER 2024-07-20 09:26 | Outpatient (REF) | payer OTHER, SELFPAY ==
[2024-07-20 11:36] LABS: Baso%MD 0.6 %; Eos%MD 2.7 %; Hemoglobin 13.4 g/dl (12.0-16.0); IG%MD 0.2 %; Mean Corpuscular HGB Conc 34.4 g/dl (31.0-35.0); Mean Corpuscular Volume 84.4 fL (80.0-98.0); Mono%MD 5.4 %; Neut%MD 53.1 %; Platelet Count 285 X10*3/uL (160-400); Red Blood Count 4.62 X10*6/uL (4.20-5.50); Red Cell Distribution Width 13.7 % (11.0-16.0); White Blood Count 4.8 X10*3/uL (4.8-10.8)
[2024-07-20 12:15] LABS: Band Neutrophils Percent 0 % (3-5); Basophils Abs Manual 0.1 X10*3/uL (0.0-0.2); Basophils Percent Manual 2 % (0-2); Eosinophils Absolute Manual 0.1 X10*3/uL (0.0-0.4); Eosinophils Percent Manual 3 % (0-4); Lymphocytes Absolute Manual 1.7 X10*3/uL (1.2-4.9); Lymphocytes Percent Manual 35 % (20-40); Monocytes Absolute Manual 0.1 X10*3/uL (0.1-1.2); Monocytes Percent Manual 3 % (2-11); Neutrophils Absolute Manual 2.7 X10*3/uL (2.0-8.3); Neutrophils Percent Manual 57 % (45-73)
[2024-07-20 12:16] LABS: Platelet Estimate NORMAL (NORMAL); Platelet Morphology Comment NORMAL; RBC Morphology NORMAL
[2024-07-21 23:27] LABS: Immunoglobulin E 131 kU/L (<OR=114)
== END 2024-07-20 09:27 | disposition home or self-care (01) ==
LOC: HO.LAB 09:26
PROVIDERS: PCP Family Medicine; Visit Provider Internal Medicine
DX: J30.9 Allergic rhinitis, unspecified (principal); J45.909 Unspecified asthma, uncomplicated; E66.01 Morbid (severe) obesity due to excess calories; Z79.1 Long term (current) use of non-steroidal anti-inflammatories (NSAID)
CPT/HCPCS: 36415; 82785; 85007; 85027; 99212

== ENCOUNTER 2024-07-20 09:26 | Outpatient (AMB) | payer OTHER, SELFPAY ==
--- NOTE | 2024-07-20 09:31 | A.OFFVIS_ITS ---
Vital Signs 07/20/24 09:32 Height 5 ft 2 in Weight 197 lb 5.019 oz BMI 36.1 BP 120/72 Blood Pressure Location Lt brachial Position Sitting Pulse 73 Pulse Source Pulse Oximeter Pulse Oximetry (%) 97 Oxygen Delivery Method Room Air Intake Visit Reasons: asthma Intake Note: pt is here for asthma today to have a pulmnologist on board feeling okay today Dictaphone Transcriber Required: No Allergies No Known Allergies Allergy (Mild, Verified 07/20/24 10:08) NOT APPLICABLE Medication List - Last Reconciled 07/20/24 by Dora Escobedo MD albuterol sulfate 5 mg inhalation Q4H PRN albuterol sulfate 90 mcg/actuation 2 puffs inhalation Q4-6H PRN bisacodyl (Dulcolax (bisacodyl)) 10 mg (2 x 5 mg) PO BEDTIME 2 days chlorthalidone 12.5 mg PO QAM losartan 25 mg PO DAILY metformin 500 mg PO BID montelukast 10 mg PO DAILY peg 3350-electrolytes 236-22.74-6.74 -5.86 gram (Golytely) 240 mL PO Q10M 1 day Do you need a note to return to daycare/school/sports/work: No HPI HPI asthma: Details: THIS 49 YEARS OLD FEMALE ( 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 SHE HAS LIFELONG SYMPTOMS OF STUFFY NOSE AND BRONCHIAL ASTHMA. HOWEVER SHE HAS NEVER BEEN HOSPITALIZED, AND HER SYMPTOMS HAVE BEEN RELATIVELY MILD BUT AROUND THE YEAR. ABOUT 10-15 YEARS AGO SHE HAD SKIN TESTING AND FOUND TO BE ALLERGIC TO ALMOST EVERYTHING ON THE SHEET. SHE WAS STARTED ON ALLERGY SHOTS ( IMMUNOTHERAPY) BUT STOPPED AFTER 2 OR 3 INJECTIONS, IT MADE HER ASTHMA WORSE. SHE HAS BEEN TREATED WITH STRONGER INHALER SUCH ADVAIR WHICH DID NOT MAKE ANY DIFFERENCE, SO SHE HAS BEEN TREATED MOSTLY WITH ALBUTEROL INHALER OR UPDRAFT P.R.N.. HER SYMPTOMS ARE ON A DAILY BASIS SHE ENDS UP USING ALBUTEROL ABOUT 2 TIMES EVERY DAY, SHE USES ALBUTEROL SOLUTION IN THE NEBULIZER MOSTLY AT NIGHT, AND MDI ABOUT TWICE A DAY WHEN AT WORK. HER SYMPTOMS GET WORSE IN THE FALL AND WINTER MONTHS, AND ALSO IN SPRING DUE TO ALLERGY TO TREES AND RHOADES. SHE HAS BEEN ON MONTELUKAST 10 MG DAILY FOR THE LAST 1 OR 2 YEARS AND DOES NOT THINK IT MADE ANY DIFFERENCE. SHE ALSO HAS BEEN GROSSLY OVERWEIGHT., HAD A HOME-BASED SLEEP STUDY IN 2021 WITH BORDERLINE RESULTS. AHI 4.9 MOSTLY IN SUPINE POSITION. SHE WAS ADVISED TO LOSE WEIGHT AND SLEEP IN LATERAL POSITION. HAS NOT BEEN ABLE TO LOSE WEIGHT, SHE TRIES TO SLEEP ON THE SIDE BUT DURING SLE EP ENDS UP TO BE IN SUPINE POSITION. AT PRESENT SHE DOES NOT HAVE ANY SIGNIFICANT SLEEP-RELATED SYMPTOMS. SHE IS NONSMOKER. SHE DOES HAVE BORDERLINE HYPERTENSION AND TYPE 2 DIABETES MELLITUS. [facility] Medical History (Updated 07/20/24 @ 10:25 by Dora Escobedo MD) Obesity (BMI 30-39.9) Well woman exam IUD check up Encounter for IUD removal Colon cancer screening Colon cancer screening Encounter for IUD insertion Screening mammogram, encounter for HPV test positive Potential exposure to STD Irregular bleeding Allergic rhinitis Anxiety Asthma COVID-19 Hx of seasonal allergies Hx of endometriosis Surgical History Hx of cholecystectomy S/P bilateral salpingo-oophorectomy History of removal of both ovaries Hx of hysterectomy Hx of colonoscopy Hx of tubal ligation Family History Mother HTN (hypertension) Diabetes Epilepsy Social History Household Members: None Housing: Apartment Alcohol intake: never Patient Tobacco Use Status: Never used Tobacco Current occupational status: employed 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[employer] [place] Sexual orientation: Straight/Heterosexual Gender identity: Female Female Reproductive History Menstrual Age of Menarche: 17 Review of Systems Const All systems reviewed & are unremarkable except as noted in HPI and below Eyes Reports no additional complaints ENT Reports nasal congestion and Reports nasal obstruction Card Reports no additional complaints Resp Reports as per HPI GI Reports no additional complaints Reports no additional complaints Musc Reports no additional complaints Skin/Breast Reports system reviewed and no additional complaints, except as documented Neuro Reports no additional complaints Psych Reports no additional complaints Endo Reports no additional complaints Luis/Lymph Reports no additional complaints Physical Exam Vital Signs: Last Vital Signs Pulse 73 07/20/24 09:32 BP 120/72 07/20/24 09:32 Pulse Ox 97 07/20/24 09:32 Oxygen Delivery Method Room Air 07/20/24 09:32 BMI result Body Mass Index 36.1 Const General: healthy appearing (EXCEPT FOR BEING OVERWEIGHT), comfortable, no acute distress, alert and awake Orientation/consciousness: patient oriented x3 HEENT Head: Yes normal to inspection General nose exam: No nasal polyps present, mucous membranes and turbinates abnormal (MARKED HYPERTROPHY OF THE NASAL TURBINATES) and No nasal discharge present Face and sinus: Yes sinuses nontender Mouth: oropharynx abnormals (NARROW AND CROWDED, MALLAMPATI CLASS 4) Throat: Yes posterior oropharynx normal Eyes General: appearance normal, both eyes and all related structures Neck Neck: Yes normal visual inspection, Yes no lymphadenopathy, Yes trachea midline and Yes no JVD Thyroid: Thyroid normal Chest Chest palpation & inspection: normal inspection of the chest, normal palpation of entire chest wall and no tenderness Resp Other: PERCUSSION NOTE IS RESONANT, BREATH SOUNDS ARE SLIGHTLY DIMINISHED OVER THE BASILAR AREAS. NO WHEEZES RHONCHI OR CREPITATIONS ARE HEARD Auscultation: no crackles, no rhonchi and no wheezes Cardio Palpation: normal PMI Rate: regular rate Rhythm: regular rhythm Heart sounds: no gallops and no murmurs Peripheral pulses: Peripheral pulses 2+ throughout GI Palpation (GI): Soft to palpation, nontender, No hepatosplenomegaly present and no masses Auscultation: normal bowel sounds Back/Spine/Pelvis Thoracic/Lumbar Spine: thoracic and lumbar spine normal to inspection Skin General skin exam: no rashes or lesions noted Neuro General: patient oriented x3 and no focal motor deficits Cranial nerves: Yes CN's II-XII intact bilaterally Extrem General: Yes normal to inspection, Yes no clubbing, cyanosis or edema and Yes no calf tenderness Psych Appearance: grossly normal and well kempt Speech and movement: Normal speech and movement present Results Reviewed Results Reviewed: PULMONARY FUNCTION TEST IN JUNE 2022 IS REVIEWED. SHE HAD MILD DECREASE IN FVC AND FEV1 SUGGESTING MILD RESTRICTIVE PULMONARY DISEASE. NO SIGNIFICANT OBSTRUCTIVE DISORDER WAS NOTED. HOME-BASED SLEEP STUDY IN 2021 : AHI 4.9 AND MOSTLY IN SUPINE POSITION. Assessment & Plan Assessment & Plan (1) Asthma: Comment: MILD, PERSISTENT, AROUND THE YEAR. Code(s): J45.909 - Unspecified asthma, uncomplicated Category: Medical Plan: CBC WITH DIFF AND IGE LEVEL TO BE CHECKED REPEAT PULMONARY FUNCTION TEST, TO SEE IF SHE HAS ANY INCREASED AMOUNT OF OBSTRUCTION. FOR TREATMENT, CONTINUE TO USE ALBUTEROL HFA 2 PUFFS Q 4-6 HOURS P.R.N. , BUT AVOID ANY EXCESSIVE USAGE ALTERNATIVELY MAY USE ALBUTEROL SOLUTION IN THE NEBULIZER Q 4-6 HOURS P.R.N., MOSTLY WHEN AT HOME AND AT NIGHT. CONTINUE MONTELUKAST 10 MG DAILY.. THE TREATMENT REGIMEN WILL BE MODIFIED OR ADJUSTED AFTER THE ABOVE TESTS ARE COMPLETED. (2) Allergic rhinitis: Comment: I THINK HER BASIC ISSUE IS ONGOING CHRONIC ALLERGIC RHINITIS, WHICH HAS RESULTED IN PARTIAL OBLITERATION OF THE NASAL CAVITIES. Code(s): J30.9 - Allergic rhinitis, unspecified Category: Medical Plan: EXPLAINED ABOUT NASAL ALLERGIES PROBLEM. IT IS PERINEAL, AND CONTRIBUTES TO BRONCHIAL ASTHMA. WELL SNORING AND SLEEP APNEA. FOR TREATMENT SHE SHOULD USE FLONASE 2 SPRAY EACH NOSTRIL DAILY. CONTINUE MONTELUKAST 10 MG DAILY. MAY USE CLARITIN OR ZYRTEC 10 MG 1 A DAY P.R.N. FOR ACUTE SYMPTOMS. (3) Obesity (BMI 30-39.9): Comment: PATIENT IS GROSSLY OBESE. SHE PROBABLY DOES HAVE BORDERLINE OBSTRUCTIVE SLEEP APNEA. Code(s): E66.9 - Obesity, unspecified Category: Medical Plan: DISCUSSED WITH HER ABOUT NEED TO LOSE WEIGHT. AND SHE WOULD NEED TESTING FOR SLEEP APNEA IF HER SYMPTOMS GET ANY WORSE. Orders: Orders Complete Blood Count Man Dif Today J30.9 - Allergic rhinitis, unspecified, J45.909 - Unspecified asthma, uncomplicated Immunoglobulin E Today J30.9 - Allergic rhinitis, unspecified, J45.909 - Unspecified asthma, uncomplicated PFT pulmonary function test Today E66.01 - Morbid (severe) obesity due to excess calories, J30.9 - Allergic rhinitis, unspecified, J45.909 - Unspecified asthma, uncomplicated Medications: New albuterol sulfate 90 mcg/actuation 2 puffs inhalation Q4-6H 30 days PRN 8.5 grams 2RF shortness of breath or wheezing Changed From albuterol sulfate 90 mcg/actuation 2 puffs inhalation Q4-6H PRN 6.7 grams 0RF shortness of breath or wheezing To albuterol sulfate 2.5 mg (3 mL) inhalation Q4-6H 30 days PRN 180 mL 2RF shortness of breath or wheezing Coding Level of Care Code New Pt Level 4 (45924) Diagnoses Asthma J45.909 Allergic rhinitis J30.9 Obesity (BMI 30-39.9) E66.9
[2024-07-20 09:32] VITALS: BP 120/72; PULSE 73; O2SAT 97; BMI 36.1
== END 2024-07-20 09:55 | disposition home or self-care (01) ==
LOC: HO.HPS 09:27
PROVIDERS: PCP Family Medicine; Visit Provider Internal Medicine
DX: J45.909 Unspecified asthma, uncomplicated (principal); E66.9 Obesity, unspecified; Z68.36 Body mass index [BMI] 36.0-36.9, adult
CPT/HCPCS: 99214

== ENCOUNTER 2024-10-12 12:57 | Outpatient (REF) | payer OTHER, SELFPAY ==
--- NOTE | 2024-10-12 13:01 | PFT_ITS ---
Indication: asthma Spirometry [FEV1 to FVC 74%; FEV1 2.15 L; FVC 2.9 L. No significant response to bronchodilators noted.] Lung Volumes [Total lung capacity 81% predicted; expiratory reserve volume 69% predicted] Diffusion Capacity [DLCO 109% predicted] Comparisons [none] Interpretation [No obstructive nor restrictive ventilatory defects identified. The patient does have some evidence small airways disease from seems like concavity to the flow volume loop which is suggestive of her diagnosis of asthma. No significant response to bronchodilators noted. Low normal lung volumes. Normal diffusing capacity. Clinical correlation warranted.] MTDD
--- OUTSIDE RECORDS SUMMARY | 2024-10-12 15:17 | XMS_ITS | Encounter Summary ---
Author Organization [employer] Address [address] [facility] 7[address] [place] [address] Care Team Providers Care Case Assistant Name Role Phone Shanta Evans MD Primary Care Provider [phone] Encounter Details Date Type Department Care Team (Late st Contact Info) Description 06/21/2023 Orders Only [facility] MEDICINE [address] [place] [phone] Shanta Evans MD [address] [place] [address] [phone] Type 2 diabetes mellitus without complication, without long-term current use of insulin (CMS/HCC) (Primary Dx) Social History Tobacco Use Types Packs/Day Years Used Date Smoking Tobacco: Never Smokeless Tobacco: Never Depression Answer Date Recorded Patient Health Questionnaire-9 Score 8 06/14/2023 Depression Answer Date Recorded Patient Health Questionnaire-2 Score 2 06/14/2023 Comments Unknown Sex and Gender Information Value Date Recorded Sex Assigned at Female 07/20/2022 10:17 AM EDT Legal Sex Female 10:17 AM EDT Gender Identity Female 07/20/2022 10:17 AM EDT Sexual Orientation Choose not to disclose 2021 10:17 AM EDT documented as of this encounter Plan of Treatment Not on file documented as of this encounter Visit Diagnoses Diagnosis Type 2 diabetes mellitus without complication, without long-term current use of insulin (CMS/HCC)- Primary documented in this encounter Additional Health Concerns Assessment Noted Time PHQ-9 Depression Total Score: 8 06/14/20 23 1:05 PM EDT documented as of this encounter Care Teams Case Assistant Relationship Specialty Start Date End Date Shanta Evans MD [address] [place] [id number] PCP - General Family Medicine 06/14/23 documented as of this encounter
--- OUTSIDE RECORDS SUMMARY | 2024-10-12 15:17 | XMS_ITS | Encounter Summary ---
Author Organization [employer] Address [address] [place] [address] Care Team Providers Care Medical And Scientific Illustrator Name Role Phone Shanta Evans MD Primary Care Provider [phone] Reason for Visit * Reason Onset Date Comments chart prep 10/10/2024 Encounter Details Date Type Department Care Team ([facility] st Contact Info) Description 10/10/2024 Telephone [facility] MEDICINE [address] [place] [address] Sachi Ghosh MA chart prep Social History Tobacco Use Types Packs/Day Years Used Date Smoking Tobacco: Never Smokeless Tobacco: Never Alcohol Answer Date Recorded Frequency of Alcohol Consumption Not on file 03/06/2024 Average Number of Drinks Not on file 024 Frequency of Binge Drinking Not on file 02/18 Score 0 03/06/2024 Depression Answer Date Recorded Patient Health Questionnaire-9 Score 0 05/29/2024 Patient Health Questionnaire-9 Score 0 05/29/2024 Last PHQ-9: Questionnaire Data Not on file 0 05/29/2024 Housing Stability Answer Date Recorded What is your housing situation today? I have tyler campbell 07/05/[address] you li ve. Do you have problems with any of the following? None of the above 07/05/2023 Food Insecurity Answer Date Recorded Within the past 12 months, y ou worried that your food would run out before you got money to buy more: Never True 07/05/2023 Within the past 12 months,th e food you bought just didn't last and you didn't have enough money to get more: Never True Transportation Answer Date Recorded In the past 12 months, has l ack of transportation kept you from medical appts, meetings, work or from getting things needed for daily living? No 07/05/2023 Utilities Answer Date Recorded In the past 12 months, has t he electric, gas, oil or water company threatened to shut off services in your home? No 07/05/2023 Depression Answer Date Recorded Patient Health Questionnaire-2 Score 0 05/29/2024 Comments Unknown Sex and Gender Information Value Date Recorded Sex Assigned at Female 07/20/2022 10:17 AM EDT Legal Sex Female 10:17 AM EDT Gender Identity Female 07/20/2022 10:17 AM EDT Sexual Orientation Choose not to disclose 2021 10:17 AM EDT documented as of this encounter Miscellaneous Notes * Telephone Encounter - Sachi Ghosh MA - 10/10/2024 10:57 AM EST .Chart Prep Labs: not applicable Images: not applicable Vaccines due: Covid Due, Hep B Due, and Flu Due Referrals: Completed Screenings: Colonoscopy and Eye Exam Overdue care gaps: SDOH documented in this encounter Plan of Treatment Not on file documented as of this encounter Visit Diagnoses Not on filedocumented in this encounter Additional Health Concerns Assessment Noted Time PHQ-9 Depression Total Score: 0 05/29/20 24 1:43 PM EDT documented as of this encounter Care Teams Medical And Scientific Illustrator Relationship Specialty Start Date End Date Shanta Evans MD [address] [place] [address] PCP - General Family Medicine 06/14/23 documented as of this encounter
--- OUTSIDE RECORDS SUMMARY | 2024-10-12 15:17 | XMS_ITS | Encounter Summary ---
Author Organization [email or web address] Address [address] [facility] 7[address] [place] [address] Care Team Providers Care Rotational Moulding Operator Name Role Phone Shanta Evans MD Primary Care Provider [phone] Encounter Details Date Type Department Care Team (Late st Contact Info) Description 06/16/2023 Orders Only [facility] MEDICINE [address] [place] [address] [phone] Shanta Evans MD [address] [place], [place] [phone] Type 2 diabetes mellitus without complication, without long-term current use of insulin (CMS/HCC) Social History Tobacco Use Types Packs/Day Years [...] on file documented as of this encounter Procedures Procedure Name Priority Date/Time Associated Diagnosis Comments CULTURE, URINE, ROUTINE Routine 06/16/2023 1:02 PM EDT Type 2 diabetes mellitus without complication, without long-term current use of insulin (CMS/HCC) documented in this encounter Results * Culture, Urine, Routine (06/16/2023 1:02 PM EDT) Urine Urine specimen obtained by clean catch procedure / Unknown 06/16/2023 1:02 PM EDT 06/16/2023 3:46 PM EDT Comment:[facility]ACC Narrative [facility] - 06/18/2023 7:33 AM EDT Klebsiella pneumoniae Quant 50,000 to 100,000 cfu/mL Klebsiella pneumoniae: Ampicillin 16(R) Klebsiella pneumoniae: Ceftriaxone <=0.25(S) Klebsiella pneumoniae: Gentamicin <=1(S) Klebsiella pneumoniae: Levofloxacin <=0.12(S) Klebsiella pneumoniae: Nitrofurantoin 64(I) Klebsiella pneumoniae: Trimethoprim/Sulfamethoxazole <=20(S) Specimen Source: Urine clean catch us [facility] Exter nal Provider LAB MICROBIOLOGY - GENERAL ORDERABLES Final Result [facility] [address] [place] [address] [phone] documented in this encounter Visit Diagnoses Diagnosis Type 2 diabetes mellitus without complication, without long-term current use of insulin ([facility]) documented in this encounter Additional Health Concerns Assessment Noted Time PHQ-9 Depression Total Score: 8 06/14/20 23 1:05 PM EDT documented as of this encounter Care Teams Rotational Moulding Operator Relationship Specialty Start Date End Date Shanta Evans MD [address] [place] [id number] PCP - General Family Medicine 06/14/23 documented as of this encounter
--- OUTSIDE RECORDS SUMMARY | 2024-10-12 15:17 | XMS_ITS | Encounter Summary ---
Author Organization [employer] Address [address] [place] [address] [place] [address] Care Team Providers Care Oil Burner Repairer Name Role Phone Shanta Evans MD Primary Care Provider [phone] Reason for Visit * Reason Comments Med Refill Encounter Details Date Type Department Care Team ([facility] st Contact Info) Description 04/28/2023 Refill [facility] MEDICINE [address] [place] [address] Tawanna Islas FNP [address] [place] [address] [place] [address] Mild intermittent asthma without complication Social History Tobacco Use Types Packs/Day Years Used Date Smoking Tobacco: Never Assessed Comments Unknown Sex and Gender Information Value Date Recorded Sex Assigned at Female 07/20/2022 10:17 AM EDT Legal Sex Female 10:17 AM EDT Gender Identity Female 07/20/2022 10:17 AM EDT Sexual Orientation Choose not to disclose 2021 10:17 AM EDT documented as of this encounter Plan of Treatment Not on file documented as of this encounter Visit Diagnoses Diagnosis Mild intermittent asthma without complication documented in this encounter Care Teams Oil Burner Repairer Relationship Specialty Start Date End Date Shanta Evans MD [address] [place] [address] PCP - General Family Medicine 06/14/23 documented as of this encounter
--- OUTSIDE RECORDS SUMMARY | 2024-10-12 15:17 | XMS_ITS | Encounter Summary ---
Author Organization [employer] Address [address] [facility] [address] 7[address] [place] [address] Care Team Providers Care Post Acute Care Registered Nurse Name Role Phone Shanta Evans MD Primary Care Provider [phone] Encounter Details Date Type Department Care Team (Latest Contact Info) Description 10/11/2024 Travel Social History Tobacco Use Types Packs/Day Years [...] documented as of this encounter Care Teams Post Acute Care Registered Nurse Relationship Specialty Start Date End Date Shanta Evans MD [address] [place] [address] PCP - General Family Medicine 06/14/23 documented as of this encounter
--- OUTSIDE RECORDS SUMMARY | 2024-10-12 15:17 | XMS_ITS | Encounter Summary ---
Author Organization [employer] Address [address] [place] [address] [address] Floor [address] Care Team Providers Care Casing Wringer Operator Name Role Phone Shanta Evans MD Primary Care Provider [phone] Encounter Details Date Type Department Care Team (Late st Contact Info) Description 04/29/2023 Telephone [facility] MEDICINE [address] [place] [address] [phone] Tawanna Islas FNP [address] [place] [address] Dept [place] [address] Social History Tobacco Use Types Packs/Day Years [...] Diagnoses Not on filedocumented in this encounter Care Teams Casing Wringer Operator Relationship Specialty Start Date End Date Shanta Evans MD [address] [place] [address] [phone] PCP - General Family Medicine 06/14/23 documented as of this encounter
--- OUTSIDE RECORDS SUMMARY | 2024-10-12 15:17 | XMS_ITS | Encounter Summary ---
Author Organization [employer] Address [address] [facility] 7t [place] [address] Care Team Providers Care Photographic Enlarger Operator Name Role Phone Shanta Evans MD Primary Care Provider [phone] Encounter Details Date Type Department Care Team (Late st Contact Info) Description 10/11/2024 11:00 AM EST Office Visit [facility] MEDICINE [address], [place] [phone] Shanta Evans MD [address], [place] [phone] Severe persistent asthma without complication (Primary Dx); Hypertension, unspecified type; Type 2 diabetes mellitus without complication, without long-term current use of insulin ([facility]); Allergic rhinitis, unspecified seasonality, unspecified trigger; Dyslipidemia; Primary hypertension; Transaminitis Social History Tobacco Use Types Packs/Day Years [...] AM EDT documented as of this encounter Last Filed Vital Signs Vital Sign Reading Time Taken Comments Blood Pressure 120/80 10/11/2024 11:10 AM EST Pulse 107 10/11/2024 11:10 AM EST Temperature 36.1 ??C (96.9 ??F) 10/11/2024 11:[address] Respiratory Rate 17 10/11/2024 11:10 AM EST Oxygen Saturation 100% 10/11/2024 11:10 AM EST Inhaled Oxygen Concentration - - Weight 87.2 kg (192 lb 3.2 oz) 10/11/2024 11:10 AM EST Height 159.9 cm (5' 2.95 ) 10/11/2024 11:[address] Body Mass Index 34.11 10/11/2024 11:10 AM EST documented in this encounter Miscellaneous Notes * Assessment & Plan Note - Deepa Guthrie - 10/11/2024 12:41 PM ESTAssociated Problem(s): Transaminitis -Elevated liver enzymes in June 2024. Likely metabolic. -Will repeat lab if persistently elevated will evaluate with US. -Work on lifestyle modifications. * Assessment & Plan Note - Deepa Guthrie - 10/11/2024 11:47 AM ESTAssociated Problem(s): Allergic rhinitis - previously tried cetirizine and loratadine - currently using OTC Linh because it is more effective for her - consider adding fluticasone nasal - Continue montelukast * Assessment & Plan Note - Deepa Guthrie - 10/11/2024 11:47 AM ESTAssociated Problem(s): Dyslipidemia - last lipid profile 07/14/24 - patient has not started statin yet because her diabetes was diet-controlled - patient started metformin in February 2024; will consider starting statin in near future - continue working on lifestyle modifications * Assessment & Plan Note - Deepa Guthrie - 10/11/2024 11:47 AM ESTAssociated Problem(s): Diabetes mellitus, type 2 (CMS/HCC) - A1C 6.3% on 10/11/24, improved from 6.5% on 05/29/24, - continue working on lifestyle modifications - continue metformin ER 500 mg bid (started February 2024) - last eye exam: Ref [facility] - last foot exam: 10/11/2024 - last lipid profile in May 2023 - last microalbumin test, <5.0 12/13/2023 * Assessment & Plan Note - Deepa Guthrie - 10/11/2024 11:46 AM ESTAssociated Problem(s): Hypertension -Goal BP < 140/90 per JNC-8 and < 130/80 per ACC/AHA guideline (Treatment threshold >= 140/90 ) -Continue working on lifestyle modifications -Recommended self-monitoring BP. -Continue current chlorthalidone 12.5 mg daily -Continue losartan 25 mg daily -Follow up in 3 mo, sooner if any problem arises * Assessment & Plan Note - Deepa Guthrie - 10/11/2024 11:46 AM ESTAssociated Problem(s): Asthma - last exacerbation and prednisone use in May 2024 - PFT on 07/10/22, update 10/12/2024 - Sleep study on 06/15/22 - Triggers: perfume; animal hair - Continue fluticasone - salmeterol to 500/50 mcg bid - Continue montelukast - Continue albuterol HFA and neb prn - Followed by [facility] afterschool, Dr. Escobedo, last seen June 2024. documented in this encounter Plan of Treatment Not on file documented as of this encounter Procedures Procedure Name Priority Date/Time Associated Diagnosis Comments POCT GLYCOSYLATED HEMOGLOBIN (HGB A1C) Routine 10/11/2024 11:14 AM EST Type 2 diabetes mellitus without complication, without long-term current use of insulin ([facility]) POCT GLUCOSE Routine 10/11/2024 11:13 AM EST Type 2 diabetes mellitus without complication, without long-term current use of insulin (CMS/[facility]) documented in this encounter Results * (ABNORMAL) POCT glycosylated hemoglobin (Hgb A1c) (10/11/2024 11:14 AM EST) Hemoglobin A1C 6.3(A) 4.0 - 6.0 % QC Media Lot # [id number] Lot# Expiration Date 069, Blood Capillary blood specimen / Unknown 10/11/2024 11:14 AM EST Shanta Evans MD POINT OF CARE TEST ENTER/EDIT OR DERABLES Final Result * POCT glucose manually resulted (10/11/2024 11:13 AM EST) Glucose Blood, POC 96 60 - 200 mg/dL QC Media Lot # [id number] Lot# Expiration Date Blood Capillary blood specimen / Unknown 10/11/2024 11:13 AM EST Shanta Evans MD POINT OF CARE TEST ENTER/EDIT OR DERABLES Final Result documented in this encounter Visit Diagnoses Diagnosis Severe persistent asthma without complication- Primary Hypertension, unspecified type Type 2 diabetes mellitus without complication, without long-term current use of insulin ([facility]) Allergic rhinitis, unspecified seasonality, unspecified trigger Dyslipidemia Other and unspecified hyperlipidemia Primary hypertension Unspecified essential hypertension Transaminitis Nonspecific elevation of levels of transaminase or lactic acid dehydrogenase (LDH) documented in this encounter Additional Health Concerns Assessment Noted Time PHQ-9 Depression Total Score: 0 05/29/20 24 1:43 PM EDT documented as of this encounter Care Teams Photographic Enlarger Operator Relationship Specialty Start Date End Date Shanta Evans MD [address] [place] [address] PCP - General Family Medicine 06/14/23 documented as of this encounter
== END 2024-10-12 12:58 | disposition home or self-care (01) ==
LOC: HO.RESP 12:57
PROVIDERS: PCP Family Medicine; Visit Provider Internal Medicine
DX: J45.909 Unspecified asthma, uncomplicated (principal); E66.01 Morbid (severe) obesity due to excess calories
CPT/HCPCS: 94010; 94640; 94727; 94729

== ENCOUNTER → 2024-10-12 13:01 | Outpatient (BNV) | payer OTHER, SELFPAY | PROVIDERS: PCP Family Medicine; Visit Provider Hospitalist | DX: J45.909 Unspecified asthma, uncomplicated (principal) | CPT/HCPCS: 94060; 94727; 94729 ==

== ENCOUNTER 2024-10-18 11:12 | Outpatient (AMB) | payer OTHER, SELFPAY ==
[2024-10-18 11:21] VITALS: BP 118/62; PULSE 71; O2SAT 97; BMI 35.1
--- NOTE | 2024-10-18 11:21 | A.OFFVIS_ITS ---
Vital Signs 10/18/24 11:21 Height 5 ft 2 in Weight 191 lb 12.835 oz BMI 35.1 BP 118/62 Blood Pressure Location Lt brachial Position Sitting Pulse 71 Pulse Source Pulse Oximeter Pulse Oximetry (%) 97 Oxygen Delivery Method Room Air Intake Visit Reasons: Asthma Intake Note: pt is here for follow up and states she is feeling good today.and is here for pft results. Hematologist Required: No Allergies No Known Allergies Allergy (Mild, Verified 10/18/24 11:42) NOT APPLICABLE Medication List - Last Reconciled 10/18/24 by Dora Escobedo MD albuterol sulfate 2.5 mg (3 mL) inhalation Q4-6H PRN 30 days albuterol sulfate 90 mcg/actuation 2 puffs inhalation Q4-6H PRN 30 days bisacodyl (Dulcolax (bisacodyl)) 10 mg (2 x 5 mg) PO BEDTIME 2 days chlorthalidone 12.5 mg PO QAM losartan 25 mg PO DAILY metformin 500 mg PO BID montelukast 10 mg PO DAILY peg 3350-electrolytes 236-22.74-6.74 -5.86 gram (Golytely) 240 mL PO Q10M 1 day Do you need a note to return to daycare/school/sports/work: No HPI HPI Asthma: Details: THIS 49 YEARS OLD FEMALE WORKS AT THE [employer] OF [employer], IS HERE FOR FOLLOW-UP AFTER SHE HAD PULMONARY FUNCTION TEST. SHE HAS HISTORY OF MILD LOW-GRADE NASAL CONGESTION FOR LONG TIME. ALSO HAS MILD BOUTS OF COUGH AND WHEEZING WHICH ARE OCCASIONAL RELATED TO ALLERGIES. AFTER HER LAST VISIT SHE WAS CHECKED FOR IGE LEVEL WHICH WAS ONLY SLIGHTLY ABOVE NORMAL, EOSINOPHIL COUNT WAS IN NORMAL RANGE. SHE HAS BEEN PRESCRIBED MONTELUKAST 10 MG TO TAKE 1 DAILY, AND WITH THIS HER SYMPTOMS HAVE REALLY REMAINED UNDER GOOD CONTROL. SHE HAS ONLY MILD NASAL CONGESTION OFF AND ON. SHE HAS HAD NO ATTACKS OF WHEEZING.. SHE IS OVERWEIGHT AND HER SLEEP STUDY HAS SHOWN VERY MINIMAL DEGREE OF SLEEP APNEA BUT BELOW THE THRESHOLD OF 5 PER HER. SHE IS TRYING TO LOSE WEIGHT AND IS HAPPY TO REPORT TODAY THAT SHE HAS LOST ABOUT 5-6 LB. [facility] Medical History (Updated 10/18/24 @ 11:49 by Dora Escobedo MD) HTN (hypertension) Obesity (BMI 30-39.9) Allergic rhinitis Anxiety Asthma HPV test positive Potential exposure to STD Irregular bleeding Hx of seasonal allergies Hx of endometriosis Surgical History (Updated 08/29/24 @ 14:24 by Jeaneth Dotson RN) History of endometrial ablation S/P bilateral salpingo-oophorectomy History of removal of both ovaries Hx of hysterectomy Hx of colonoscopy Hx of tubal ligation Hx of cholecystectomy Family History Mother HTN (hypertension) Diabetes Epilepsy Social History Household Members: None Housing: Apartment Alcohol intake: never Patient Tobacco Use Status: Never used Tobacco Current occupational status: employed 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[employer] Sexual orientation: Straight/Heterosexual Gender identity: Female Female Reproductive History Menstrual Age of Menarche: 17 Review of Systems Const All systems reviewed & are unremarkable except as noted in HPI and below Eyes Reports no additional complaints ENT Reports nasal congestion and Reports nasal obstruction Card Reports no additional complaints Resp Reports as per HPI GI Reports no additional complaints Reports no additional complaints Musc Reports no additional complaints Skin/Breast Reports system reviewed and no additional complaints, except as documented Neuro Reports no additional complaints Psych Reports no additional complaints Endo Reports no additional complaints Luis/Lymph Reports no additional complaints Physical Exam Vital Signs: Last Vital Signs Pulse 71 10/18/24 11:21 BP 118/62 10/18/24 11:21 Pulse Ox 97 10/18/24 11:21 Oxygen Delivery Method Room Air 10/18/24 11:21 BMI result Body Mass Index 35.1 Const General: healthy appearing (EXCEPT FOR BEING OVERWEIGHT), comfortable, no acute distress, alert and awake Orientation/consciousness: patient oriented x3 HEENT Head: Yes normal to inspection General nose exam: No nasal polyps present, mucous membranes and turbinates abnormal (MARKED HYPERTROPHY OF THE NASAL TURBINATES) and No nasal discharge present Face and sinus: Yes sinuses nontender Mouth: oropharynx abnormals (NARROW AND CROWDED, MALLAMPATI CLASS 4) Throat: Yes posterior oropharynx normal Eyes General: appearance normal, both eyes and all related structures Neck Neck: Yes normal visual inspection, Yes no lymphadenopathy, Yes trachea midline and Yes no JVD Thyroid: Thyroid normal Chest Chest palpation & inspection: normal inspection of the chest, normal palpation of entire chest wall and no tenderness Resp Other: PERCUSSION NOTE IS RESONANT, BREATH SOUNDS ARE SLIGHTLY DIMINISHED OVER THE BASILAR AREAS. NO WHEEZES RHONCHI OR CREPITATIONS ARE HEARD Auscultation: no crackles, no rhonchi and no wheezes Cardio Palpation: normal PMI Rate: regular rate Rhythm: regular rhythm Heart sounds: no gallops and no murmurs Peripheral pulses: Peripheral pulses 2+ throughout GI Palpation (GI): Soft to palpation, nontender, No hepatosplenomegaly present and no masses Auscultation: normal bowel sounds Back/Spine/Pelvis Thoracic/Lumbar Spine: thoracic and lumbar spine normal to inspection Skin General skin exam: no rashes or lesions noted Neuro General: patient oriented x3 and no focal motor deficits Cranial nerves: Yes CN's II-XII intact bilaterally Extrem General: Yes normal to inspection, Yes no clubbing, cyanosis or edema and Yes no calf tenderness Psych Appearance: grossly normal and well kempt Speech and movement: Normal speech and movement present Results Reviewed Results Reviewed: PULMONARY FUNCTION TEST IS ESSENTIALLY NORMAL EXCEPT FOR SLIGHT DECREASE IN FEF 25-75 ( 57% ) THERE WAS NO RESPONSE TO BRONCHODILATOR THERAPY IGE LEVEL 131. ( N= UP TO 114 ) EOSINOPHIL COUNT 0.3, NORMAL Assessment & Plan Assessment & Plan (1) Allergic rhinitis: Comment: HER BASIC ISSUE IS ONGOING CHRONIC ALLERGIC RHINITIS, WHICH HAS RESULTED IN PARTIAL OBLITERATION OF THE NASAL CAVITIES. NOW IT IS DEFINITELY IMPROVED. Code(s): J30.9 - Allergic rhinitis, unspecified Category: Medical Plan: CONTINUE MONTELUKAST 10 MG DAILY. MAY USE OTC ANTIHISTAMINICS SUCH CLARITIN 10 MG 1 TABLET A DAY ONLY P.R.N. (2) Asthma: Comment: MILD, PERSISTENT, AROUND THE YEAR., RELATIVELY CONTROLLED AT THIS TIME. Code(s): J45.909 - Unspecified asthma, uncomplicated Category: Medical Plan: CONTINUE MONTELUKAST 10 MG DAILY, USE ALBUTEROL HFA 1 OR 2 PUFFS Q 6 HOURS ONLY P.R.N. Coding Level of Care Code Est Pt Level 3 (52382) Diagnoses Allergic rhinitis J30.9 Asthma J45.909
== END 2024-10-18 11:40 | disposition home or self-care (01) ==
PROVIDERS: PCP Family Medicine; Visit Provider Internal Medicine
DX: J30.9 Allergic rhinitis, unspecified (principal); J45.909 Unspecified asthma, uncomplicated
CPT/HCPCS: 99213

== ENCOUNTER → 2024-10-18 11:12 | Outpatient (BNVA) | payer OTHER, SELFPAY | PROVIDERS: PCP Family Medicine; Visit Provider Internal Medicine | DX: J45.909 Unspecified asthma, uncomplicated (principal); J30.9 Allergic rhinitis, unspecified | CPT/HCPCS: 99212 ==

== ENCOUNTER 2025-01-25 10:48 | Outpatient (REF) | payer OTHER, SELFPAY ==
--- NOTE | ~2025-01-25 | XR_ITS ---
EXAMINATION: XR WRIST, LEFT CLINICAL INFORMATION: left thumb and wrist pain, radial side COMPARISON: None available. TECHNIQUE: PA, lateral, oblique, and scaphoid views of the left wrist. FINDINGS: The bones and soft tissues are normal. No fracture. Alignment is anatomic with normal joint spaces. No erosions or abnormal soft tissue calcifications. XR/XR wrist LT min 3V IMPRESSION: Normal left wrist. Electronically signed by: Ramu Azevedo MD 01/25/2025 12:27 PM EDT
--- OUTSIDE RECORDS SUMMARY | 2025-01-25 12:19 | XMS_ITS | Encounter Summary ---
Author Organization [employer] Address [address] [facility] [address] 7[address] [place] [address] Care Team Providers Care Category Consultant Name Role Phone Shanta Evans MD Primary Care Provider Encounter Details Date Type Department Care Team (Late st Contact Info) Description 06/16/2023 Orders Only [facility] MEDICINE [address] [place] [phone] Shanta Evans MD [address] [place] [address] Type 2 diabetes mellitus without complication, without long-term current use of insulin (CMS/[facility]) Social History Tobacco Use Types Packs/Day Years [...] EDT 06/16/2023 3:46 PM EDT Comment:UACC Narrative [facility] - 06/18/2023 7:33 AM EDT Klebsiella pneumoniae Quant 50,000 to 100,000 cfu/mL Klebsiella pneumoniae: Ampicillin 16(R) Klebsiella pneumoniae: Ceftriaxone <=0.25(S) Klebsiella pneumoniae: Gentamicin <=1(S) Klebsiella pneumoniae: Levofloxacin <=0.12(S) Klebsiella pneumoniae: Nitrofurantoin 64(I) Klebsiella pneumoniae: Trimethoprim/Sulfamethoxazole <=20(S) Specimen Source: Urine clean catch us [facility] Exter nal Provider LAB MICROBIOLOGY - GENERAL ORDERABLES Final Result [facility] [address] [place] [address] [phone] documented in this encounter Visit Diagnoses Diagnosis Type 2 diabetes mellitus without complication, without long-term current use of insulin ([facility]) documented in this encounter Additional Health Concerns Assessment Noted Time PHQ-9 Depression Total Score: 8 06/14/20 1:05 PM EDT documented as of this encounter Care Teams Category Consultant Relationship Specialty Start Date End Date Shanta Evans MD [address] [place] [phone] PCP - General Family Medicine 06/14/23 documented as of this encounter
--- OUTSIDE RECORDS SUMMARY | 2025-01-25 12:19 | XMS_ITS | Encounter Summary ---
Author Organization [employer] Address [address] [facility] [address] 7[address] [place] [address] Care Team Providers Care Hoop Punch Operator Helper Name Role Phone Shanta Evans MD Primary Care Provider [phone] Encounter Details Date Type Department Care Team (Late st Contact Info) Description 06/21/2023 Orders Only [facility] MEDICINE [address] [place] [address] [phone] Shanta Evans MD [address] [place] [address] [phone] Type 2 diabetes mellitus without complication, without [...] documented as of this encounter Care Teams Hoop Punch Operator Helper Relationship Specialty Start Date End Date Shanta Evans MD [address] [place] [phone] PCP - General Family Medicine 06/14/23 documented as of this encounter
--- OUTSIDE RECORDS SUMMARY | 2025-01-25 12:19 | XMS_ITS | Encounter Summary ---
Author Organization [employer] Address [address] [address] [facility] [address] 7[address] [place] [address] Care Team Providers Care Sole Painter Name Role Phone Shanta Evans MD Primary Care Provider [phone] Encounter Details Date Type Department Care Team (Latest Contact Info) Description 01/25/2025 Travel Social History Tobacco Use Types Packs/Day [...] housing situation today? I have tyler campbell 01/25/[address] you li ve. Do you have problems with any of the following? None of the above 01/25/2025 Food Insecurity Answer Date Recorded Within the past 12 months, y ou worried that your food would run out before you got money to buy more: Never True 01/25/2025 Within the past 12 months,th e food you bought just didn't last and you didn't have enough money to get more: Never True 04/2025 Transportation Answer Date Recorded In the past 12 months, has l ack of transportation kept you from medical appts, meetings, work or from getting things needed for daily living? No 01/25/2025 Utilities Answer Date Recorded In the past 12 months, has t he electric, gas, oil or water company threatened to shut off services in your home? No 01/25/2025 Depression Answer Date Recorded Patient Health Questionnaire-2 Score 0 05/29/2024 Internet Access Answer Date Recorded Internet Access Q1 Yes 01/25/2025 Internet Access Q2 Not on file 01/25/2025 Comments No Sex and Gender Information Value Date Recorded [...] documented as of this encounter Care Teams Sole Painter Relationship Specialty Start Date End Date Shanta Evans MD [address] [place] [address] PCP - General Family Medicine 06/14/23 documented as of this encounter
--- OUTSIDE RECORDS SUMMARY | 2025-01-25 12:19 | XMS_ITS | Encounter Summary ---
Author Organization [employer] Address [address] [facility] [address] 7[address] [place] [address] Care Team Providers Care Regional Airline Pilot Name Role Phone Shanta Evans MD Primary Care Provider [phone] Reason for Visit * Reason Onset Date Comments Chart Prep 01/24/2025 Encounter Details Date Type Department Care Team ([facility] st Contact Info) Description 01/24/2025 Telephone [facility] MEDICINE [address] [place] [address] Shanta Evans MD [address] [place] [address] Chart Prep Social History Tobacco Use Types Packs/Day Years [...] Access Q2 Not on file 01/25/2025 Comments Unknown Sex and Gender Information Value Date Recorded Sex Assigned at Female 07/20/2022 10:17 AM EDT Legal Sex Female 10:17 AM EDT Gender Identity Female 07/20/2022 10:17 AM EDT Sexual Orientation Choose not to disclose 2021 10:17 AM EDT documented as of this encounter Miscellaneous Notes * Telephone Encounter - Leann Farmer [place] - 01/24/2025 1:51 PM EDT Chart Prep Labs: not done Images: not applicable Vaccines due: Covid Due and Flu Due Referrals: Optometry Completed Screenings: Colonoscopy , Mammogram, and Foot Exam Overdue care gaps: A1C, Glucose, SDOH, and Disability documented in this encounter Plan of Treatment Not on file documented as of this encounter Visit Diagnoses Not on filedocumented in this encounter Additional Health Concerns Assessment Noted Time PHQ-9 Depression Total Score: 0 05/29/20 24 1:43 PM EDT documented as of this encounter Care Teams Regional Airline Pilot Relationship Specialty Start Date End Date Shanta Evans MD [address] [place] [address] PCP - General Family Medicine 06/14/23 documented as of this encounter
--- OUTSIDE RECORDS SUMMARY | 2025-01-25 12:19 | XMS_ITS | Encounter Summary ---
Author Organization [employer] Address [address] [place] [address] 7t [place] [address] Care Team Providers Care Polisher Numeral Name Role Phone Shanta Evans MD Primary Care Provider [phone] Reason for Visit * Reason Comments Med Refill Encounter Details Date Type Department Care Team ([facility] st Contact Info) Description 04/28/2023 Refill [facility] MEDICINE [address] [place] [phone] Tawanna Islas FNP [address] [place] [address] Dept [place] [address] Mild intermittent asthma without complication Social History [...] complication documented in this encounter Care Teams Polisher Numeral Relationship Specialty Start Date End Date Shanta Evans MD [address] [place] [address] PCP - General Family Medicine 06/14/23 documented as of this encounter
--- OUTSIDE RECORDS SUMMARY | 2025-01-25 12:19 | XMS_ITS | Encounter Summary ---
Author Organization [employer] Address [address] [facility] 7t [place] [address] Care Team Providers Care Tip Printer Name Role Phone Shanta Evans MD Primary Care Provider [phone] Encounter Details Date Type Department Care Team (Late st Contact Info) Description 04/29/2023 Telephone [facility] MEDICINE [address] [place], [place] [phone] Tawanna Islas FNP [address] [facility] Dept [place] [address] Social History Tobacco Use Types Packs/Day Years [...] on filedocumented in this encounter Care Teams Tip Printer Relationship Specialty Start Date End Date Shanta Evans MD [address] [place], [place] [phone] PCP - General Family Medicine 06/14/23 documented as of this encounter
--- OUTSIDE RECORDS SUMMARY | 2025-01-25 12:19 | XMS_ITS | Encounter Summary ---
Author Organization [employer] Address [address] [facility] [address] [address] [place] [address] Care Team Providers Care Cro Name Role Phone Shanta Evans MD Primary Care Provider [phone] Encounter Details Date Type Department Care Team (Late st Contact Info) Description 01/25/2025 10:00 AM EDT Office Visit [facility] MEDICINE [address] [place], [place] [phone] Shanta Evans MD [address] [place], [place] [phone] Hypertension, unspecified type (Primary Dx); Type 2 diabetes mellitus without complication, without long-term current use of insulin (CMS/HCC); Severe persistent asthma without complication; Left wrist pain Social History Tobacco Use Types Packs/Day Years [...] Sign Reading Time Taken Comments Blood Pressure 129/81 01/25/2025 10:20 AM EDT Pulse 66 01/25/2025 10:20 AM EDT Temperature 36.1 ??C (96.9 ??F) 01/25/2025 1 0:20 AM EDT Respiratory Rate 15 01/25/2025 10:2 0 AM EDT Oxygen Saturation 98% 01/25/2025 10: 20 AM EDT Inhaled Oxygen Concentration - - Weight 86.5 kg (190 lb 12.8 oz) 025 10:20 AM EDT Height 157.5 cm (5' 2 ) 01/25/2025 10:2 0 AM EDT Body Mass Index 34.9 01/25/2025 10:20 AM EDT documented in this encounter Plan of Treatment Scheduled Orders Name Type Priority Associated Diagnoses Orde r Schedule XR Wrist 3+ Views Left Imaging Routine Left wrist pain Expected: 01/25/2025, Expires: 01/25/2026 XR THUMB LT MIN 2V Imaging Routine Left wrist pain Expected: 01/25/2025, Expires: 01/25/2026 documented as of this encounter Procedures Procedure Name Priority Date/Time Associated Diagnosis Comments POCT GLYCOSYLATED HEMOGLOBIN (HGB A1C) Routine 01/25/2025 10:22 AM EDT Type 2 diabetes mellitus without complication, without long-term current use of insulin ([facility]) POCT GLUCOSE Routine 01/25/2025 10:22 AM EDT Type 2 diabetes mellitus without complication, without long-term current use of insulin ([facility]) documented in this encounter Results * (ABNORMAL) POCT glycosylated hemoglobin (Hgb A1c) (01/25/2025 10:22 AM EDT) Hemoglobin A1C 6.1(A) 4.0 - 6.0 % QC Media Lot # [id number] Lot# Expiration Date Blood Capillary blood specimen / Unknown 01/25/2025 10:22 AM EDT Shanta Evans MD POINT OF CARE TEST ENTER/EDIT OR DERABLES Final Result * POCT glucose manually resulted (01/25/2025 10:22 AM EDT) Glucose Blood, POC 102 60 - 200 mg/dL QC Media Lot # [id number] Lot# Expiration Date Blood Capillary blood specimen / Unknown 01/25/2025 10:22 AM EDT Shanta Evans MD POINT OF CARE TEST ENTER/EDIT OR DERABLES Final Result documented in this encounter Visit Diagnoses Diagnosis Hypertension, unspecified type- Primary Type 2 diabetes mellitus without complication, without long-term current use of insulin ([facility]) Severe persistent asthma without complication Left wrist pain Pain in joint, forearm documented in this encounter Additional Health Concerns Assessment Noted Time PHQ-9 Depression Total Score: 0 05/29/20 24 1:43 PM EDT documented as of this encounter Care Teams Cro Relationship Specialty Start Date End Date Shanta Evans MD [address] [place] [phone] PCP - General Family Medicine 06/14/23 documented as of this encounter
--- OUTSIDE RECORDS SUMMARY | 2025-01-25 12:20 | XMS_ITS | Clinical Summary ---
Author Organization [employer] Address [address] [place] [address] Care Team Providers Care Photographer Assistant Name Role Phone Shanta Evans MD Primary Care Provider [phone] Allergies No known active allergies Medications Fluticasone-Salm eterol (Advair Diskus) 500-50 MCG/ACT aerosol powder Inhale 1 puff 2 times daily. 1 each 11 3 Active fexofenadine (Linh) 180 MG tablet Take 180 mg by mouth in the morning. Active Alcohol Swabs (Alcohol Prep) pads Used when checking BG 1 each 11 3 Active FreeStyle lancets 1 each by Other route in the morning. Check blood glucose 50 each 11 3 Active Blood Glucose Monitoring Suppl (FreeStyle Lite) w/Device kit 1 each in the morning. 1 kit 1 3 Active glucose blood (FREESTYLE LITE) test strip Check blood SUGAR ONCE DAILY 50 each 11 3 Active albuterol (2.5 MG/3ML) 0.083% nebulizer solution Take 3 mL (2.5 mg) by nebulization every 4 (four) hours if needed for wheezing or shortness of breath (Maximum 4 treatments per day). 75 mL 3 4 Active albuterol (Ventolin HFA) 108 (90 Base) MCG/ACT inhaler INHALE 2 PUFFS EVERY 6 HOURS IF NEEDED FOR WHEEZING. 18 g 3 4 Active metFORMIN XR (Glucophage-XR) 500 MG 24 hr tablet Take 1 tablet (500 mg) by mouth with breakfast and with evening meal. Do not crush, chew, or split. 180 tablet 3 5 026 Active losartan (Cozaar) 25 MG tablet Take 1 tablet (25 mg) by mouth in the morning. 90 tablet 3 5 Active chlorthalidone (Hygroton) 25 MG tabletIndication s:Primary hypertension TAKE 1/2 TABLET BY MOUTH EVERY DAY 45 tablet 3 5 Active montelukast (Singulair) 10 MG tablet Take 1 tablet (10 mg) by mouth Once per day. 90 tablet 3 5 026 Active naproxen (Naprosyn) 500 MG tablet Take 1 tablet by mouth twice daily as needed for pain. Take with foods. 60 tablet 5 Active Active Problems Problem Noted Date Diagnosed Date Transaminitis 10/11/2024 Assessment & Plan (10/15/2024 7:07 AM EST): -Elevated liver enzymes in June 2024. Likely metabolic. -CT scan in 2021 showed normal liver - s/p cholectystectomy -Will repeat lab if persistently elevated will evaluate with US. -Work on lifestyle modifications. Dyslipidemia 05/29/2024 Assessment & Plan (10/11/2024 12:39 PM EST): - last lipid profile 07/14/24 - patient has not started statin yet because her diabetes was diet-controlled - patient started metformin in February 2024; will consider starting statin in near future - continue working on lifestyle modifications Assessment & Plan (05/29/2024 2:32 PM EDT): - last lipid profile: 06/14/23 - patient has not started statin yet because her diabetes was diet-controlled - patient started metformin in February 2024; will consider starting statin in near future - continue working on lifestyle modifications Hirsutism 03/01/2024 Hot flashes 03/01/2024 Hx of cholecystectomy 03/01/2024 Irregular bleeding 03/01/2024 Polyp of corpus uteri 03/01/2024 Morbid (severe) obesity due to excess calories 0 03/01/2024 Myoma 03/01/2024 Skin lesions 03/01/2024 Snoring 03/01/2024 Umbilical hernia 03/01/2024 Status post bilateral oophorectomy 12/10/2023 Assessment & Plan (12/13/2023 9:37 AM EDT): - 09/16/23 - recovering well Diabetes mellitus, type 2 06/16/2023 Assessment & Plan (10/11/2024 12:38 PM EST): - A1C 6.3% on 10/11/24, improved from 6.5% on 05/29/24, - continue working on lifestyle modifications - continue metformin ER 500 mg bid (started February 2024) - last eye exam: Ref [facility] - last foot exam: 10/11/2024 - last lipid profile in May 2023 - last microalbumin test, <5.0 12/13/2023 Assessment & Plan (05/29/2024 2:30 PM EDT): - A1C 6.5% on 05/29/24, improved from 7.0% on 03/06/24, - continue working on lifestyle modifications - continue metformin ER 500 mg bid (started February 2024) - last eye exam: - last foot exam: 03/06/24 - last lipid profile in May 2023 - last microalbumin test, <5.0 12/13/2023 - start Metformin, one tablet once a day with food at night for one week, then can increase to two tablets Assessment & Plan (03/06/2024 10:35 AM EDT): - A1C 7.0% on 03/06/24, which stayed the same as last on 12/13/23 - currently diet-controlled - continue working on lifestyle modifications - last eye exam: - last foot exam: 03/06/24 - last lipid profile in May 2023 - last microalbumin test, <5.0 12/13/2023 - start Metformin, one tablet once a day with food at night for one week, then can increase to two tablets - will consider starting a statin therapy when she starts pharmacotherapy for type 2 diabetes -f/u in 3 months Assessment & Plan (12/13/2023 9:36 AM EDT): - A1C 7.0% on 12/13/23, increased from 6.5% - currently diet-controlled - continue working on lifestyle modifications - last eye exam - last foot exam: 12/13/23 - last lipid profile in May 2023 - last microalbumin test Ordering today - discussed about pharmacotherapy if her BG continues to increase - will consider starting a statin therapy when she starts pharmacotherapy for DM Hypertension 06/14/2023 Assessment & Plan (10/11/2024 12:36 PM EST): -Goal BP < 140/90 per JNC-8 and < 130/80 per ACC/AHA guideline (Treatment threshold >= 140/90 ) -Continue working on lifestyle modifications -Recommended self-monitoring BP. -Continue current chlorthalidone 12.5 mg daily -Continue losartan 25 mg daily -Follow up in 3 mo, sooner if any problem arises Assessment & Plan (05/29/2024 2:28 PM EDT): -Goal BP < 140/90 per JNC-8 and < 130/80 per ACC/AHA guideline (Treatment threshold >= 140/90 ) -BP not at goal 03/06/24 -Continue working on lifestyle modifications -Recommended self-monitoring BP. -Continue current chlorthalidone 12.5 mg daily -Continue losartan 25 mg daily -Follow up in 3 mo, sooner if any problem arises Assessment & Plan (03/06/2024 10:36 AM EDT): -Goal BP < 140/90 per JNC-8 and < 130/80 per ACC/AHA guideline (Treatment threshold >= 140/90 ) -BP not at goal 03/06/24 -Continue working on lifestyle modifications -Recommended self-monitoring BP. -Continue current chlorthalidone 12.5 mg daily -Continue losartan 25 mg daily -Follow up in 3 mo, sooner if any problem arises Assessment & Plan (12/13/2023 9:34 AM EDT): -Goal BP < 140/90 per JNC-8 and < 130/80 per ACC/AHA guideline (Treatment threshold >= 140/90 ) -BP almost at goal -Continue working on lifestyle modifications -Recommended self-monitoring BP. -Continue current chlorthalidone 12.5 mg daily -Continue losartan 25 mg daily -Follow up in 3 mo, sooner if any problem arises Assessment & Plan (06/14/2023 6:05 PM EDT): -Goal BP < 140/90 per JNC-8 and < 130/80 per ACC/AHA guideline (Treatment threshold >= 140/90 ) -BP not at goal, both at home and office -Continue working on lifestyle modifications -Recommended self-monitoring BP. -Continue current chlorthalidone 12.5 mg daily -Add losartan 25 mg daily -Follow up in 3 mo, sooner if any problem arises Asthma 06/14/2023 Assessment & Plan (10/15/2024 7:04 AM EST): - last exacerbation and prednisone use in May 2024 - Followed by [facility] body [facility], Dr. Escobedo, last seen June 2024. - PFT on 07/10/22, update 10/12/2024 - Sleep study on 06/15/22 - Triggers: perfume; animal hair - Continue fluticasone - salmeterol to 500/50 mcg bid - Continue montelukast - Continue albuterol HFA and neb prn Assessment & Plan (05/29/2024 2:28 PM EDT): - Mild-moderate exacerbation currently, will treat with prednisone - last exacerbation and prednisone use in February 2024 - PFT on 07/10/22 - Sleep study on 06/15/22 - Triggers: perfume; animal hair - Continue fluticasone - salmeterol to 500/50 mcg bid - Continue montelukast - Continue albuterol HFA and neb prn - Refer to [facility] Assessment & Plan (03/06/2024 10:35 AM EDT): - PFT on 07/10/22 - Sleep study on 06/15/22 - Triggers: perfume; animal hair - Continue fluticasone - salmeterol to 500/50 mcg bid - Continue montelukast - Continue albuterol HFA and neb prn - Recommended to schedule appointment with sample body builder - mild exacerbation, wheezing and congestion on exam on 03/06/24 - will prescribe low dose prednisone Assessment & Plan (12/13/2023 9:34 AM EDT): - PFT on 07/10/22 - Sleep study on 06/15/22 - Triggers: perfume; animal hair - Continue fluticasone - salmeterol to 500/50 mcg bid - Continue montelukast - Continue albuterol HFA and neb prn - Recommended to schedule appointment with sample body builder Assessment & Plan (06/14/2023 6:06 PM EDT): - PFT on 07/10/22 - Sleep study on 06/15/22 - Increase fluticasone - salmeterol to 500/50 mcg bid - Add montelukast - continue albuterol HFA and neb prn Allergic rhinitis 06/14/2023 Assessment & Plan (10/11/2024 12:39 PM EST): - previously tried cetirizine and loratadine - currently using OTC Linh because it is more effective for her - consider adding fluticasone nasal - Continue montelukast Assessment & Plan (03/06/2024 10:32 AM EDT): - previously tried cetirizine and loratadine - currently using OTC Linh because it is more effective for her - consider adding fluticasone nasal - add montelukast Assessment & Plan (12/13/2023 10:43 PM EDT): - previously tried cetirizine and loratadine - currently using OTC Linh because it is more effective for her - consider adding fluticasone nasal - Continue montelukast Assessment & Plan (06/14/2023 6:03 PM EDT): - previously tried cetirizine and loratadine - currently using OTC Linh because it is more effective for her - consider adding fluticasone nasal - add montelukast Status post hysterectomy 06/14/2023 Assessment & Plan (06/14/2023 6:07 PM EDT): - Oct 2022 Anxiety 03/29/2015 Resolved Problems Problem Noted Date Diagnosed Date Resolved Date Potential exposure to STD 03/01/2024 Colon cancer screening 03/01/202403/05 Screening mammogram, encounter for 03/01/2024 03/05/2024 Small intestinal bacterial overgrowth 03/01/2024 10/15/2024 Encounters Date Type Department Care Team Description 01/25/2025 10:00 AM EDT Office Visit [facility] [address] [place] [address] Shanta Evans MD Hypertension, unspecified type (Primary Dx); Type 2 diabetes mellitus without complication, without long-term current use of insulin (CMS/HCC); Severe persistent asthma without complication; Left wrist pain 01/25/2025 Travel 01/24/2025 Telephone [facility] [address] [place], [place] [phone] Shanta Evans MD Chart Prep 01/02/2025 1:00 PM EDT Office Visit [facility] [address] [place] [address] Bhargavi Martin, OD Type 2 diabetes mellitus without ophthalmic manifestations (CMS/HCC) (Primary Dx); Myopia, bilateral; Refractive amblyopia of both eyes 01/02/2025 Travel from Last 3 Months Immunizations Name Administration Dates Next Due Hep B Immune Globulin 05/06/2020 Hep B, adult 05/06/2020 Influenza injectable quadriv alent IIV4 with preservative 08/04/2017 Influenza injectable quadrivalent preservative f ree 06/14/2023 Influenza, Unspecified 10/20/2019 Pneumococcal Conjugate PCV 20 12/13/2023 Pneumococcal Polysaccharide PPSV23 01/29/2015 Tdap 06/14/2023 Family History Medical History Relation Name Comments Asthma Mother Depression Mother Schizophrenia Mother Seizures Mother Relation Name Status Comments Mother Social History Tobacco Use Types Packs/Day Years [...] not to disclose 2021 10:17 AM EDT Last Filed Vital Signs Vital Sign Reading Time Taken Comments Blood Pressure 129/81 01/25/2025 10:20 AM EDT Pulse 66 01/25/2025 10:20 AM EDT Temperature 36.1 ??C (96.9 ??F) 01/25/2025 1 0:20 AM EDT Respiratory Rate 15 01/25/2025 10:2 0 AM EDT Oxygen Saturation 98% 01/25/2025 10: 20 AM EDT Inhaled Oxygen Concentration - - Weight 86.5 kg (190 lb 12.8 oz) 05/08/2 025 10:20 AM EDT Height 157.5 cm (5' 2 ) 01/25/2025 10:2 0 AM EDT Body Mass Index 34.9 01/25/2025 10:20 AM EDT Plan of Treatment Health Maintenance Due Date Last Done Comments CT Colonography 1975 Colonoscopy 1975 Colorectal Cancer Screening 1975 FIT DNA/Cologuard 1975 FIT 1975 FOBT 1975 Sigmoidoscopy 1975 COVID-19 Vaccine ( season) 2024 08/23/2021, 08/02/2021 Influenza Vaccine (#1) 2024 , 10/20/2019, 08/04/2017 Mammogram 11/19/2024 11/20/2023, 07/17/2022 Alcohol/Substance Use Screening 03/06/2025 03/06/2024 Diabetes: Foot Exam 03/06/2025 03/06/2024, 03/06/2024, 03/06/2024, Additional history exists Depression Screening 05/29/2025 05/29/2024, 05/29/20 Diabetes: Urine Protein Screening 07/14/2025 07/14/2024, 12/13/2023, 05/13/2020 Lipid Panel 07/14/2025 07/14/2024, 05/22, 06/14/2023, Additional history exists Diabetes: Hemoglobin A1C 07/28/2025 025, 10/11/2024, 05/29/2024, Additional history exists Family Planning (PISQ) 10/15/2025 10/15/2024 SDOH Screening 01/25/2026 01/25/2025 Tobacco Screening 01/25/2026 01/25/2025 Zoster Vaccines (1 of 2) 2026 Eye Exam 01/02/2027 01/02/2025, 12/19, 01/02/2025, Additional history exists DTaP/Tdap/Td Vaccines (2 - Td or Tdap) 06/14/2033 06/14/2023 RSV Patients and Patients Aged 60 years or older (1 - 1-dose 75+ series) 2051 Hepatitis B Vaccines Discontinued 05/06/2020 Cervical Cancer Screening Discontinued HPV/Cotest Discontinued 08/05/2021, 07/21, 07/04/2020, Additional history exists HIV Screening Completed 06/14/2023, 01/25/2023 Hepatitis C Screening Completed 06/14/2023, 023 Pneumococcal Vaccine: Pediatrics (0 to 5 Years) and At-Risk Patients (6 to 49) Years) Completed 12/13/2023, 01/29/2015 HIB Vaccines Aged Out No longer eligi ble based on patient's age to complete this topic HPV Vaccines Aged Out No longer eligi ble based on patient's age to complete this topic Hepatitis A Vaccines Aged Out No long er eligible based on patient's age to complete this topic IPV Vaccines Aged Out No longer eligi ble based on patient's age to complete this topic Meningococcal Vaccine Aged Out No sabina dee eligible based on patient's age to complete this topic Pap Smear Discontinued RSV under 20 months Aged Out No longe r eligible based on patient's age to complete this topic Rotavirus Vaccines Aged Out No longer eligible based on patient's age to complete this topic Procedures Procedure Name Priority Date/Time Associated Diagnosis Comments POCT GLYCOSYLATED HEMOGLOBIN (HGB A1C) Routine 01/25/2025 10:22 AM EDT Type 2 diabetes mellitus without complication, without long-term current use of insulin (CMS/HCC) POCT GLUCOSE Routine 01/25/2025 10:22 AM EDT Type 2 diabetes mellitus without complication, without long-term current use of insulin (CMS/HCC) LIPID PANEL WITH REFLEX TO DIRECT LDL Routine 07/14/2024 9:15 AM EDT Type 2 diabetes mellitus without complication, without long-term current use of insulin (CMS/HCC) ALBUMIN, RANDOM URINE W/CREATININE Routine 07/14/2024 9:11 AM EDT Type 2 diabetes mellitus without complication, without long-term current use of insulin (CMS/HCC) BI MAMMOGRAM SCREENING TOMOSYNTHESIS BILATERAL Routine 11/20/2023 8:30 AM EST HEPATITIS C AB W/REFL TO HCV RNA, QN, PCR Routine 06/14/2023 1:55 PM EDT Routine general medical examination at a health care facility HIV ANTIBODY/ANTIGEN ([place] DPH) Routine 06/14/2023 1:55 PM EDT ZZZ HISTORICAL HPV E6/E7 RFLX BIN 16 18/45 Routine 08/05/2021 2:28 PM EST from Last 3 Months or Most Recently Relevant to Health Maintenance Results * (ABNORMAL) POCT glycosylated hemoglobin (Hgb A1c) (01/25/2025 10:22 AM EDT) Hemoglobin A1C 6.1(A) 4.0 - 6.0 % QC Media Lot # [id number] Lot# Expiration Date [id number] Blood Capillary blood specimen / Unknown 01/25/2025 [...] TEST ENTER/EDIT OR DERABLES Final Result * (ABNORMAL) Lipid Panel with Reflex to Direct LDL (07/14/2024 9:15 AM EDT) Triglycerides 315(H) <150 mg/dL [facility] Comment:Desirable Triglyceri de: less than 150 mg/dLBorderline High Triglyceride 150-199 mg/dLHigh Triglyceride: 200-499 mg/dLVery High Triglyceride: greater than or equal to 5OO mg/dL Cholesterol 188 <200 mg/dL [facility] Comment:Desirable Cholestero l: less than 200 mg/dLBorderline High Cholesterol: 200-239 mg/dLHigh Cholesterol: greater than 239 mg/dL LDL Cholesterol Calculated 80 <100 mg/dL [facility] Comment:Desirable LDL: less than 100 mg/dLNear Optimal/Above Optimal LDL: 110- 129 mg/dLBorderline High LDL: 130-159 mg/dLHigh LDL: 160-189 mg/dLVery High LDL: greater than or equal to 190 mg/dL HDL Cholesterol 45 >40 mg/dL [facility] Comment:Desirable HDL: great er than 40 mg/dL Note: This HDL assay may give artificially low results in patients with liver disease. Blood 07/14/2024 9:15 AM EDT 07/14/2024 9:16 AM EDT us Shanta Evans MD LAB BLOOD ORDERABLES Final Resul t Performing Organization Address City/[facility] Co de Phone Number [facility] [address] [place] [phone] * Albumin, Random Urine W/Creatinine (07/14/2024 9:11 AM EDT) Creatinine, Urine 20.53 mg/dL [facility] Microalbumin Urine <5.0 mg/L [facility] Microalbum Creatinine Ratio Ur TNP <30 ug/mg cr [facility] Comment:Unable to calculate albumin/creatinine ratio due to lowmicroalbumin or creatinine result. Urine 07/14/2024 9:11 AM EDT 07/14/2024 10:23 AM EDT us Shanta Evans MD LAB URINE ORDERABLES Final Resul t Performing Organization Address [facility] Co de Phone Number [facility] [address] [place] [phone] * BI Mammogram Screening Tomosynthesis Bilateral (11/20/2023 8:30 AM EST) Anatomical Region Laterality Modality Breast Bilateral Mammography 11/20/2023 8:30 AM EST Narrative 12/02/2023 5:50 AM EDT ? [facility] ? [address] ?[place], [place] [address] ? Mammography Report ? Signed ? Patient: Khalida,Sofiya ?MR#: [id number] ?? 9 ? : 1975 ?Acct:[id number] ? Age/Sex: 48 / F ?ADM Date: 11/20/23 ? Loc: HO.MAMMO ? Attending Dr: Dagmar Bruce NP ? Ordering Physician: Huan Pfeiffer MD ?Results: 1Negativ ?? e ? Date of Service: 11/20/23 ?Follow Up: 1 Year From Orig ?? inal Mammogram ? Procedure(s): MM tomosynthesis screening BI ?? Accession Number(s): [id number] ? cc: Jennifer Batista MD; Huan Pfeiffer MD ? EXAMINATION: ?? MM SCREENING DIGITAL BREAST TOMOSYNTHESIS, BILATERAL ? CLINICAL INFORMATION: ? Screening. Asymptomatic. ? COMPARISON: ?? Mammography: This study is compared with prior exams dating back to ?? 2020. ? TECHNIQUE: ?? Digital breast tomosynthesis is performed in both the craniocaudal and ?? mediolateral oblique views along with computer-aided detection (CAD). ?? Synthesized 2D images are generated from the tomosynthesis. ? FINDINGS: ?? There are scattered areas of fibroglandular density (ACR BI-RADS breast ?? composition Category b). ? There are no significant masses, abnormal calcifications, or other ?? abnormalities. ? MM/MM tomosynthesis screening BI ?? IMPRESSION: ?? No mammographic evidence of malignancy. ? ASSESSMENT: ? BI-RADS BI-RADS 1 - Negative ? RECOMMENDATION: ?? Routine annual mammography screening. ? 1 year F/U ? This examination should not preclude the clinical evaluation of a ?? suspicious palpable abnormality. ? This patient's information was entered into a reminder system with a ?? target due date for their next mammogram. ? Dictated By: ?Janis Espinoza MD ? Signed By: ?<Electronically signed by Janis Espinoza MD in OV> ? 12/02/23 0547 ? DD/ 0830 ? TD/TT: ? Kindergartner: ? Procedure Note Peng, Image - 12/02/2023 [facility] [address] [place] [address] Mammography Report Signed Patient: Flex Gaxiola#: [id number] 9 : 1975Acct:[id number] Age/Sex: 48 / FADM Date: 11/20/23 Loc: HO.MAMMO Attending Dr: Dagmar Bruce NP Ordering Physician: Huan Pfeiffer MDResults: 1Negativ e Date of Service: 11/20/23Follow Up: 1 Year From Orig ina Mammogram Procedure(s): MM tomosynthesis screening BI Accession Number(s): [id number] cc: Jennifer Batista MD; Huan Pfeiffer MD EXAMINATION: MM SCREENING DIGITAL BREAST TOMOSYNTHESIS, BILATERAL CLINICAL INFORMATION: Screening. Asymptomatic. COMPARISON: Mammography: This study is compared with prior exams dating back to 2020. TECHNIQUE: Digital breast tomosynthesis is performed in both the craniocaudal and mediolateral oblique views along with computer-aided detection (CAD). Synthesized 2D images are generated from the tomosynthesis. FINDINGS: There are scattered areas of fibroglandular density (ACR BI-RADS breast composition Category b). There are no significant masses, abnormal calcifications, or other abnormalities. MM/MM tomosynthesis screening BI IMPRESSION: No mammographic evidence of malignancy. ASSESSMENT: BI-RADS BI-RADS 1 - Negative RECOMMENDATION: Routine annual mammography screening. 1 year F/U This examination should not preclude the clinical evaluation of a suspicious palpable abnormality. This patient's information was entered into a reminder system with a target due date for their next mammogram. Dictated By: Janis Espinoza MD Signed By: <Electronically signed by Janis Espinoza MD in OV> 12/02/23546 DD/ 9 TD/TT: Kindergartner: [facility] External Provider IMG BI PROCEDURES Final Result * HIV Ab/Ag ([place] [facility]) (06/14/2023 1:55 PM EDT) HIV AB/AG Nonreactive Nonreactive [facility] Comment:HIV-1 p24 Ag and/or HIV-1/HIV-2 Ab not detected.A test result that is nonreactive does not exclude thepossibility of exposure to or infection with HIV-1 and/orHIV-2. Nonreactive results in this assay for individualswith prior exposure to HIV-1 and/or HIV-2 may be due toantigen and antibody levels that are below the limit ofdetection of this assay.The [employer] HIV Ag/Ab Combo assay result andsupplemental assay results should be interpreted inconjunction with the patient's clinical presentation,history and other laboratory results. If the results areinconsistent with clinical evidence, additional testing issuggested to confirm the result. 06/14/2023 1:55 PM EDT 06/14/2023 4:05 PM EDT Shanta Evans MD LAB BLOOD ORDERABLES Final Resul t [facility] [address] [place] [phone] * Hepatitis C Antibody with Reflex to HCV, RNA, Quantitative, Real-Time PCR (06/14/2023 1:55 PM EDT) Pathologist [facility] Hepatitis C Antibody Nonreactive Nonreactive [facility] Comment:Antibodies to HCV no t detected; does not exclude early acuteHCV infection. Blood Venous blood specimen / Unknown 06/14/2023 1:55 PM EDT 06/14/2023 4:05 PM EDT us Shanta Evans MD LAB BLOOD ORDERABLES Final Resul t [facility] [address] [place] [phone] * HPV E6/E7 RFLX BIN 16 18/45 (08/05/2021 2:28 PM EST) Pathologist [facility] HPV mRNA E6/E7 rflx Not Detected Not Detected [facility] Comment: Methodology: Inflated Ball Molder-Mediated Amplification This assay detects E6/E7 viral messenger RNA (mRNA) from 14 high-risk HPV types (16,18,31,33,35,39,45,51,52,56,58,59,66,68). The analytical performance characteristics of this assay have been determined by [employer]. The modifications have not been cleared or approved by the FDA. This assay has been validated pursuant to the CLIA regulations and is used for clinical purposes. For additional information, please refer to http://education.[employer]/faq/FRP536z1 (This link if provided for information/ educational purposes only.) THIS TEST WAS PERFORMED AT: [facility] [address] [place] [address] [address] [place], [place] [phone] АННА MARKS MD 08/05/2021 2:28 PM EST us Huan Pfeiffer MD HISTORICAL/NON ORDERABLE LABS Fi nal Result [facility] [address] from Last 3 Months or Most Recently Relevant to Health Maintenance Insurance [facility] BCBS PPO * Guarantor: Sofiya Gaxiola Account Type Relation to Patient Date of Phone Billing Address Personal/Family Self [address] Care Teams Photographer Assistant Relationship Specialty Start Date End Date Shanta Evans MD [address] [place] [address] PCP - General Family Medicine 06/14/23
== END 2025-01-25 10:49 | disposition home or self-care (01) ==
LOC: HO.HHCX 10:48
PROVIDERS: Visit Provider Family Medicine
DX: M25.532 Pain in left wrist (principal)
CPT/HCPCS: 73110

== ENCOUNTER → 2025-01-25 10:50 | Outpatient (BNV) | payer OTHER, SELFPAY | PROVIDERS: Visit Provider Radiology Diagnostic Radiology | DX: M25.532 Pain in left wrist (principal); M79.645 Pain in left finger(s) | CPT/HCPCS: 73110 ==

== ENCOUNTER 2025-04-18 11:14 | Outpatient (AMB) | payer OTHER, SELFPAY ==
--- NOTE | 2025-04-18 11:21 | MHC.OFFVIS ---
Vital Signs 04/18/25 11:22 Height 5 ft 2 in Weight 196 lb 3.382 oz BMI 35.9 BP 102/70 Blood Pressure Location Lt brachial Position Sitting Pulse 70 Pulse Source Pulse Oximeter Pulse Oximetry (%) 97 Oxygen Delivery Method Room Air Intake Visit Reasons: Asthma Intake Note: pt is here for follow up and states she is good, [employer] Required: No Allergies No Known Allergies Allergy (Mild, Verified 04/18/25 11:37) NOT APPLICABLE Medication List - Last Reconciled 04/18/25 by Dora Escobedo MD albuterol sulfate 2.5 mg (3 mL) inhalation Q4-6H PRN 30 days albuterol sulfate 90 mcg/actuation (Ventolin HFA) 2 puffs PO Q4-6H PRN bisacodyl (Dulcolax (bisacodyl)) 10 mg (2 x 5 mg) PO BEDTIME 2 days chlorthalidone 12.5 mg PO QAM losartan 25 mg PO DAILY metformin 500 mg PO BID montelukast 10 mg PO DAILY peg 3350-electrolytes 236-22.74-6.74 -5.86 gram (Golytely) 240 mL PO Q10M 1 day Do you need a note to return to daycare/school/sports/work: No HPI HPI Asthma: Details: 50 YEARS OLD VERY PLEASANT FEMALE WHO WORKS AT THE [employer], 6 MONTHS FOLLOW-UP FOR HER BRONCHIAL ASTHMA. SHE HAS CHRONIC ALLERGIC RHINITIS WITH BRONCHIAL ASTHMA. REMAINS WELL CONTROLLED WITH USE OF MONTELUKAST 10 MG DAILY AND USE OF ALBUTEROL P.R.N.. SHE DOES NEED TO USE ALBUTEROL VIA NEBULIZER AT NIGHTTIME BEFORE SHE GOES TO SLEEP, . AND ONLY P.R.N. DURING THE DAYTIME SHE HAS ONGOING NASAL CONGESTION ESPECIALLY IN THE LEFT NOSTRIL BUT DENIES ANY SNEEZING OR POSTNASAL DRIP. [facility] Medical History HTN (hypertension) Obesity (BMI 30-39.9) Allergic rhinitis Anxiety Asthma HPV test positive Potential exposure to STD Irregular bleeding Hx of seasonal allergies Hx of endometriosis Surgical History History of endometrial ablation S/P bilateral salpingo-oophorectomy History of removal of both ovaries Hx of hysterectomy Hx of colonoscopy Hx of tubal ligation Hx of cholecystectomy Family History Mother HTN (hypertension) Diabetes Epilepsy Social History Household Members: None Housing: Apartment Alcohol intake: never Patient Tobacco Use Status: Never used Tobacco Current occupational status: employed 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[employer] Sexual orientation: Straight/Heterosexual Gender identity: Female Female Reproductive History Menstrual Age of Menarche: 17 Review of Systems Const All systems reviewed & are unremarkable except as noted in HPI and below Eyes Reports no additional complaints ENT Reports nasal congestion and Reports nasal obstruction Card Reports no additional complaints Resp Reports as per HPI GI Reports no additional complaints Reports no additional complaints Musc Reports no additional complaints Skin/Breast Reports system reviewed and no additional complaints, except as documented Neuro Reports no additional complaints Psych Reports no additional complaints Endo Reports no additional complaints Luis/Lymph Reports no additional complaints Physical Exam Vital Signs: Last Vital Signs Pulse 70 04/18/25 11:22 BP 102/70 04/18/25 11:22 Pulse Ox 97 04/18/25 11:22 Oxygen Delivery Method Room Air 04/18/25 11:22 BMI result Body Mass Index 35.9 Const General: healthy appearing (EXCEPT FOR BEING OVERWEIGHT), comfortable, no acute distress, alert and awake Orientation/consciousness: patient oriented x3 HEENT Head: Yes normal to inspection General nose exam: No nasal polyps present, Normal nasal mucous membranes and turbinates present (MARKED HYPERTROPHY OF THE NASAL TURBINATES TERRY. LT SIDE ) and No nasal discharge present Face and sinus: Yes sinuses nontender Mouth: oropharynx abnormals (NARROW AND CROWDED, MALLAMPATI CLASS 4) Throat: Yes posterior oropharynx normal Eyes General: appearance normal, both eyes and all related structures Neck Neck: Yes normal visual inspection, Yes no lymphadenopathy, Yes trachea midline and Yes no JVD Thyroid: Thyroid normal Chest Chest palpation & inspection: normal inspection of the chest, normal palpation of entire chest wall and no tenderness Resp Other: PERCUSSION NOTE IS RESONANT, BREATH SOUNDS ARE SLIGHTLY DIMINISHED OVER THE BASILAR AREAS. NO WHEEZES RHONCHI OR CREPITATIONS ARE HEARD Auscultation: no crackles, no rhonchi and no wheezes Cardio Palpation: normal PMI Rate: regular rate Rhythm: regular rhythm Heart sounds: no gallops and no murmurs Peripheral pulses: Peripheral pulses 2+ throughout GI Palpation (GI): Soft to palpation, nontender, No hepatosplenomegaly present and no masses Auscultation: normal bowel sounds Back/Spine/Pelvis Thoracic/Lumbar Spine: thoracic and lumbar spine normal to inspection Skin General skin exam: no rashes or lesions noted Neuro General: patient oriented x3 and no focal motor deficits Cranial nerves: Yes CN's II-XII intact bilaterally Extrem General: Yes normal to inspection, Yes no clubbing, cyanosis or edema and Yes no calf tenderness Psych Appearance: grossly normal and well kempt Speech and movement: Normal speech and movement present Assessment & Plan Assessment & Plan (1) Asthma: Comment: MILD ASTHMA , PERSISTENT, AROUND THE YEAR., RELATIVELY CONTROLLED AT THIS TIME. Code(s): J45.909 - Unspecified asthma, uncomplicated Category: Medical Plan: CONTINUE MONTELUKAST 10 MG DAILY. ALBUTEROL HFA 2 PUFFS Q 6 HOURS P.R.N. WHEN OUTDOORS AND ALBUTEROL SOLUTION IN THE NEBULIZER Q 6 HOURS P.R.N. WHEN AT HOME. ( USUALLY NEEDS TO USE ONCE BEFORE BEDTIME ) (2) Obesity (BMI 30-39.9): Comment: PATIENT IS MODERATELY OBESE. SHE CLAIMS THAT SHE SLEEPS GOOD AND DENIES SYMPTOMS OF OBSTRUCTIVE SLEEP APNEA. Code(s): E66.9 - Obesity, unspecified Category: Medical Plan: DISCUSSED ABOUT THE WEIGHT ISSUE AND INSTRUCTED HER TO TRY LOSING SOME WEIGHT (3) Allergic rhinitis: Comment: HER BASIC ISSUE IS ONGOING CHRONIC ALLERGIC RHINITIS, WHICH HAS RESULTED IN PARTIAL OBLITERATION OF THE NASAL CAVITIES. NOW IT IS DEFINITELY IMPROVED. Code(s): J30.9 - Allergic rhinitis, unspecified Category: Medical Plan: CONTINUE USING MONTELUKAST 10 MG DAILY SHE DOES NOT LIKE TO USE THE NASAL SPRAY. Coding Level of Care Code Est Pt Level 3 (06882) Diagnoses Asthma J45.909 Obesity (BMI 30-39.9) E66.9 Allergic rhinitis J30.9
[2025-04-18 11:22] VITALS: BP 102/70; PULSE 70; O2SAT 97; BMI 35.9
--- OUTSIDE RECORDS SUMMARY | 2025-04-18 12:19 | XMS_ITS | Encounter Summary ---
Author Organization [employer] Address [address] [place] [address] Care Team Providers Care Door Attendant Name Role Phone Shanta Evans MD Primary Care Provider [phone] Encounter Details Date Type Department Care Team (Late st Contact Info) Description 06/16/2023 Orders Only [facility] [address] [place] [address] [phone] Shanta Evans MD [address] [place] [address] Type 2 diabetes mellitus without complication, without long-term current use of insulin (CMS/[facility]) Social History Tobacco Use Types Packs/Day Years [...] EDT 06/16/2023 3:46 PM EDT Comment:UACC Narrative [facility] - 06/18/2023 7:33 AM EDT Klebsiella pneumoniae Quant 50,000 to 100,000 cfu/mL Klebsiella pneumoniae: Ampicillin 16(R) Klebsiella pneumoniae: Ceftriaxone <=0.25(S) Klebsiella pneumoniae: Gentamicin <=1(S) Klebsiella pneumoniae: Levofloxacin <=0.12(S) Klebsiella pneumoniae: Nitrofurantoin 64(I) Klebsiella pneumoniae: Trimethoprim/Sulfamethoxazole <=20(S) Specimen Source: Urine clean catch [facility] Exter nal Provider LAB MICROBIOLOGY - GENERAL ORDERABLES Final Result Performing Organization Address City/State/[facility] Co de Phone Number [facility] [address] [place] [address] [phone] documented in this encounter Visit Diagnoses Diagnosis Type 2 diabetes mellitus without complication, without long-term current use of insulin ([facility]) documented in this encounter Additional Health Concerns Assessment Noted Time PHQ-9 Depression Total Score: 8 06/14/20 23 1:05 PM EDT documented as of this encounter Care Teams Door Attendant Relationship Specialty Start Date End Date Shanta Evans MD [address] [place] [phone] PCP - General Family Medicine 06/14/23 documented as of this encounter
--- OUTSIDE RECORDS SUMMARY | 2025-04-18 12:19 | XMS_ITS | Clinical Summary ---
Author Organization [facility] Address [address] [place] [phone] Phone Care Team Providers Care Bilingual Teacher Assistant Name Role Phone Edda Pineda MD Primary Care Provi erika Allergies No known active allergies Medications albuterol 90 mcg/actuation inhaler Inhale 2 puffs into the lungs every 6 (six) hours as needed for wheezing. Active Immunizations Immunization Administration Dates Next Due Hepatitis B Adult 05/06/2020,05/06/2020 Influenza, Unspecified Formulation 10/20/2019 Social History Tobacco Use Types Packs/Day Years Used Date Smoking Tobacco: Never Smokeless Tobacco: Never Alcohol Use Standard Drinks/Week Comments Never 0 (1 standard drink = 0.6 oz pur e alcohol) Education Answer Date Recorded Are you interested in more education? Not on rodríguez e 01/15/2023 Are you concerned about learning? Not on file 01/15/2023 No 01/15/2023 No 01/15/2023 Digital Access Answer Date Recorded No 02/12/2023 No 02/12/2023 No 02/12/2023 Reliable internet access at home? Not on file 02/12/2023 Device with a working camera? Not on file Comments Unknown Sex and Gender Information Value Date Recorded Sex Assigned at Female 08/20/2020 7:16 AM EST Legal Sex Female 9:27 PM EDT Gender Identity Female 08/20/2020 7:16 AM EST Sexual Orientation Straight 08/20/2020 7: 16 AM EST Last Filed Vital Signs Vital Sign Reading Time Taken Comments Blood Pressure 163/90 08/20/2020 7:12 AM EST Pulse 79 08/20/2020 7:12 AM EST Temperature 36.6 C (97.9 F) 08/20/2020 7:12 AM EST Respiratory Rate 18 08/20/2020 7:12 AM EST Oxygen Saturation 100% 08/20/2020 7:12 AM EST Inhaled Oxygen Concentration - - Weight 86.2 kg (190 lb) 08/20/2020 7:12 AM EST Height 157.5 cm (5' 2 ) 08/20/2020 7:12 AM EST Body Mass Index 34.75 08/20/2020 7:12 AM EST Plan of Treatment Health Maintenance Due Date Last Done Comments Adult Td,Tdap Booster 1976 LIPID PANEL 1976 DEPRESSION SCREENING 1988 HEPATITIS C SCREENING 1994 HIV ONE-TIME SCREENING (18-6 5 YEARS) 1994 PAP SMEAR 1997 SMOKING STATUS SCREENING (On ce After 26 Yrs) 2002 MAMMOGRAM 2016 COLOGUARD 2021 COLONOSCOPY 2021 COLORECTAL CANCER SCREENING 2021 FIT TEST 2021 FOBT 2021 SIGMOIDOSCOPY 2021 VIRTUAL COLONOSCOPY 2021 COVID-19 VACCINE (3 - 2023-2 5 season) 2024 08/23/2021, 08/02/2021 PNEUMOCOCCAL VACCINES (0-49 years) Aged Out 01/29/2015 No longer eligible b ased on patient's age to complete this topic HEPATITIS A VACCINES Aged Out No long er eligible based on patient's age to complete this topic HIB VACCINES Aged Out No longer eligi ble based on patient's age to complete this topic MENINGOCOCCAL VACCINES (ACWY) Aged Out No longer eligible based on patient's age to complete this topic MENINGOCOCCAL VACCINES (B) Aged Out N o longer eligible based on patient's age to complete this topic Medical Devices Not on file Insurance [facility] NON [facility]SPG PCP [employer] NON NSPG PCP [employer] NON NSPG PCP S[employer] NON NSPG PCP [employer] [address] [place] [phone] [employer] NON NSPG PCP [employer] [address] [place] [address] [employer] NON NSPG PCP [employer] NON NSPG PCP S[employer] NON NSPG PCP [employer] NON NSPG PCP [employer] Care Teams Bilingual Teacher Assistant Relationship Specialty Start Date End Date Edwin, Edda Ocampo MD [address] [place] [phone] PCP - General 07/06/17 Additional Source Comments The information contained in this document represents components of the legal health record. It is not the complete legal health record.[facility]
== END 2025-04-18 11:36 | disposition home or self-care (01) ==
LOC: HO.HPS 11:15
PROVIDERS: PCP Family Medicine; Visit Provider Internal Medicine
DX: J45.909 Unspecified asthma, uncomplicated (principal); E66.9 Obesity, unspecified; J30.9 Allergic rhinitis, unspecified
CPT/HCPCS: 99213

== ENCOUNTER → 2025-04-18 11:14 | Outpatient (BNVA) | payer OTHER, SELFPAY | PROVIDERS: PCP Family Medicine; Visit Provider Internal Medicine | DX: E66.9 Obesity, unspecified (principal); J30.9 Allergic rhinitis, unspecified | CPT/HCPCS: 99212 ==